=== PATIENT | male | born 1945 | race Caucasian/White ===

== ENCOUNTER 2016-04-02 23:55 | Emergency (ER) | payer OTHER, MEDICARE ==
[~2016-04-02 23:55] MED LIST: AMLO2.5T PO; ASPI1TAB PO; ATOR40TA PO; DEPA500T2 PO; DIVA500T9 PO; DRIS50002 PO; GABA-279 PO; HYDR12CA PO; LAMO200T PO; LISI40TAB PO; MELO7.5T6 PO; METF-699 PO; METF500T PO; SERT-141 PO; VITATAB11 PO
[2016-04-03 01:42] LABS: BASO # 0.1 K/mm3 (0.0-0.2); EOS # 0.1 K/mm3 (0.0-0.50); EOS % 0.8 % (0.0-3.0); LARGE UNSTAINED CELL # 0.2 K/mm3 (0.0-0.4); LARGE UNSTAINED CELL % 3.2 % (0.0-4.0); LYMPH # 3.3 K/mm3 (1.5-4.5); LYMPH % 47.5 % (24.0-44.0); MEAN CORPUSCULAR HGB CONC 33.6 g/dl (32.0-36.5); MEAN CORPUSCULAR VOLUME 92.2 fl (80.0-96.0); MONO # 0.4 K/mm3 (0.0-0.8); MONO % 6.5 % (0.0-5.0); NEUTROPHILS # 2.6 K/mm3 (1.8-7.7); PLATELET COUNT, AUTOMATED 254 k/mm3 (150-450); RED CELL DISTRIBUTION WIDTH 12.7 % (11.5-14.5); WHITE BLOOD COUNT 6.6 K/mm3 (4.0-10.0)
[2016-04-03 01:52] LABS: ANION GAP 10 MEQ/L (8-16); BLOOD UREA NITROGEN 21 MG/DL (7-18); CALCIUM LEVEL 9.2 MG/DL (8.8-10.2); CARBON DIOXIDE LEVEL 28 MEQ/L (21-32); CHLORIDE LEVEL 101 MEQ/L (98-107); CREATININE FOR GFR 1.21 MG/DL (0.70-1.30); GLOMERULAR FILTRATION RATE > 60.0 (>49); GLUCOSE, FASTING 208 MG/DL (80-110); POTASSIUM SERUM 4.2 MEQ/L (3.5-5.1); SODIUM LEVEL 139 MEQ/L (136-145)
[2016-04-03] MEDS ORDERED: ISOVUE-370 76% 100ML VIAL (Q9967) As Ordered ONE (03:11)
--- NOTE | 2016-04-03 04:20 | REPUSA ---
CLINICAL HISTORY: Dyspnea, exclude PE. TECHNIQUE: Multiple incremental axial, coronal and oblique images are obtained from the thoracic inle t to the upper abdomen. Intravenous contrast material was administered as per pulmonary embolism prot ocol. COMMENTS: There is excellent opacification of pulmonary arterial system without evidence for pulmonary embolism . Aorta is of normal caliber without evidence for dissection or aneurysm. There is no evidence of pleural or parenchymal mass. There are no pleural effusions. There is no evid ence of hilar or mediastinal lymphadenopathy. The heart and great vessels are within normal limits. Images of the upper abdomen demonstrate no evidence of adrenal mass. Multifocal air trapping in the l ungs. Bilateral basilar atelectatic pulmonary changes. The bony structures are free of lytic or blastic lesions. Multilevel degenerative changes are seen in volving the visualized thoracolumbar spine. Scattered calcifications are seen involving the aorta and major branches compatible with atherosclero sis. Cholelithiasis. 7 mm nonobstructing calculus in the left renal pelvis. IMPRESSION: No evidence for pulmonary embolism. Multifocal air trapping in the lungs. Mild bilateral ground glass densities. Pulmonary congestion versus mild infection. Basilar atelectatic pulmonary changes. Thank you for your kind referral of this patient.
--- NOTE | 2016-04-03 05:28 | EDDOCDS ---
Physician Documentation [facility] Name: Armando Valle Age: 71 yrs Sex: Male : 1945 Arrival Date: 04/02/2016 Time: 23:55 Bed 8 Private MD: [facility] Disposition: 04/03/16 05:08 Discharged to Home/Self Care. Impression: Other chest pain. - Condition is Stable. - Discharge Instructions: Nonspecific Chest Pain, Gastroesophageal Reflux Disease, Adult, Chest Pain Observation. - Medication Reconciliation, Local Pharmacy Hours form. - Follow up: [facility]; When: 4 - 5 days; Reason: Continuance of care. - Problem is an acute exacerbation. - Symptoms have improved. Historical: - Allergies: No known drug Allergies; - Home Meds: 1. amlodipine 2.5 mg Oral tab 1 tab once daily (Last dose: 04/02/2016) 2. aspirin 81 mg Oral tab 1 tab once daily (Last dose: 04/02/2016) 3. atorvastatin 40 mg oral tab 1 tab once daily (Last dose: 04/02/2016) 4. divalproex 500 mg oral TbEC 1 tab 2 times per day (Last dose: 04/02/2016) 5. calcium daily (Last dose: 04/02/2016) 6. depakote 200 mg twice a day 7. gabapentin 100 mg Oral cap 1 caps 3 times per day (Last dose: 04/02/2016) 8. lamotrigine 150 mg Oral tab 1 tab nightly (Last dose: 04/02/2016) 9. hydrochlorothiazide 12.5 mg Oral cap 1 cap once daily (Last dose: 04/02/2016) 10. lisinopril 40 mg Oral tab 1 tab once daily (Last dose: 04/02/2016) 11. meloxicam 7.5 mg oral tab 1 tab twice a day (Last dose: 04/02/2016) 12. metformin 750 mg Oral Tb24 1 tab twice a day (Last dose: 04/02/2016) 13. Sertraline 50 mg 50 mg daily (Last dose: 04/02/2016) 14. Vitamin D2 50,000 unit oral cap 1 cap once wkly - PMHx: Diabetes - NIDDM: controlled; Hypercholesterolemia; Hypertension; Seizure Disorder; - PSHx: vagus nerve stimulator; - Social history: Smoking status: Patient states former smoker of tobacco. No barriers to communication noted, The patient speaks fluent Maori, Speaks appropriately for age. - Family history: Not pertinent. - : The pt / caregiver states he / she is not on anticoagulants. Home medication list is obtained from the patient. - Exposure Risk Screening:: None identified. Vital Signs: 04/03 00:04 BP 201 / 81 (auto/); ko2 00:04 Pulse 70 MON; Pulse Ox 97% ; ko2 00:07 BP 201 / 81; Pulse 71; Resp 20; Temp 97.9(TE); Pulse Ox 96% on R/A; Weight 86.64 kg / jmv 191.01 lbs (R); Height 5 ft. 10 in. (177.80 cm) (R); Pain 3; 00:16 Pulse 68 MON; Pulse Ox 97% ; ko2 00:16 BP 182 / 86 (auto/); ko2 00:19 BP 176 / 86 RA (man/); jmv 00:19 BP 166 / 76 (auto/); ko2 00:19 Pulse 68 MON; Pulse Ox 97% ; ko2 00:33 Pulse 66 MON; Pulse Ox 96% ; ko2 00:34 BP 161 / 77 (auto/); ko2 00:49 BP 156 / 75 (auto/); ko2 00:49 Pulse 66 MON; Pulse Ox 95% ; ko2 01:04 BP 140 / 67 (auto/); ko2 01:04 Pulse 64 MON; Pulse Ox 95% ; ko2 01:19 BP 156 / 73 (auto/); ko2 01:19 Pulse 66 MON; Pulse Ox 95% ; ko2 01:34 BP 154 / 72 (auto/); ko2 01:34 Pulse 64 MON; Pulse Ox 96% ; ko2 01:49 BP 143 / 61 (auto/); ko2 01:49 Pulse 60 MON; Pulse Ox 96% ; ko2 02:03 Pulse 60 MON; Pulse Ox 96% ; ko2 02:04 BP 133 / 64 (auto/); ko2 02:18 Pulse 58 MON; Pulse Ox 95% ; ko2 02:19 BP 132 / 67 (auto/); ko2 02:34 BP 146 / 102 (auto/); ko2 02:34 Pulse 58 MON; Pulse Ox 96% ; ko2 02:49 BP 132 / 63 (auto/); ko2 02:49 Pulse 58 MON; Pulse Ox 96% ; ko2 03:04 BP 133 / 68 (auto/); ko2 03:04 Pulse 56 MON; Pulse Ox 96% ; ko2 03:18 Pulse 58 MON; ko2 03:19 BP 141 / 65 (auto/); ko2 03:33 Pulse 60 MON; Pulse Ox 98% ; ko2 03:34 BP 148 / 66 (auto/); ko2 03:49 BP 144 / 69 (auto/); ko2 03:49 Pulse 60 MON; Pulse Ox 98% ; ko2 04:04 BP 143 / 68 (auto/); ko2 04:04 Pulse 60 MON; Pulse Ox 98% ; ko2 05:13 BP 140 / 77; Pulse 66; Resp 18; Temp 96.3(O); Pulse Ox 97% ; Pain 0/10; ko2 00:07 Body Mass Index 27.41 (86.64 kg, 177.80 cm) jmv 00:07 RN notified about BP jmv MDM: 01:31 Softball Core Molder/Pulse Ox/q 30 min VS ordered. mm11 01:31 IV Saline Lock ordered. mm11 01:31 Rhythm Strip to chart ordered. mm11 01:31 Undress patient appropriately for examination ordered. mm11 01:33 B-Type Natiuretic Peptide Ordered. EDMS 01:33 Basic Metabolic Profile Ordered. EDMS 01:33 CBC with Diff Ordered. EDMS 01:33 Cardiac Injury Profile Ordered. EDMS 01:33 Troponin Ordered. EDMS 01:33 DEPAKOTE Ordered. EDMS 01:33 Chest, 2 View (pa\E\lat) Ordered. EDMS 01:33 ECG WITH READING ER PHYS+CARDIAG ordered. EDMS 01:55 Basic Metabolic Profile Reviewed. mm11 01:55 CBC with Diff Reviewed. mm11 01:55 Cardiac Injury Profile Reviewed. mm11 01:55 DEPAKOTE Reviewed. mm11 01:55 Troponin Reviewed. mm11 01:57 B-Type Natiuretic Peptide Reviewed. mm11 02:38 CT Chest Angio R/O PE Ordered. EDMS 03:38 Financial registration complete. hs2 05:08 CT Chest Angio R/O PE Reviewed. mm11 Signatures: Dispatcher [employer] EDMS Morgan Bruno, DO DO mm11 Annette Nolan,RN RN ko2 Dina Collado, Reg Reg hs2 MTDD
--- NOTE | 2016-04-03 05:28 | EDDOCDS ---
Nurse's Notes [facility] Name: Armando Valle Age: 71 yrs Sex: Male : 1945 Arrival Date: 04/02/2016 Time: 23:55 Bed 8 Private MD: MO Melissa Melbourne Diagnosis: Other chest pain Presentation: 04/02 23:56 Presenting complaint: EMS states: general illness over the last couple days, a little ko2 shortness of breath. Feels worse today. BP elevated at 186/110. Blood sugar 257. Suicide/Homicide risk assessment- the patient denies having any suicidal and/or homicidal ideations and does not present with any other emotional, behavioral or mental health complaints. Status: Patient is not a customer services manager or dependent. Transition of care: patient was not received from another setting of care. Care prior to arrival: See EMS report. Glucose check. 257. 23:56 Acuity: LUIGI Level 3 ko2 23:56 Method Of Arrival: Ambulance ko2 04/03 00:29 Adult Sepsis Screening: The patient does not have new or worsening altered mentation. ko2 Patient's respiratory rate is less than 22. Systolic blood pressure is greater than 100. Patient has a qSOFA score of 0- Negative Sepsis Screen. Triage Assessment: 00:06 General: Appears ill, Behavior is cooperative, drowsy. Pain: Location: chest Quality of ko2 pain is described as pressure. The patient is triaged at the bedside. See Assessment in Nurses Notes section of ED record. Neurological: Level of Consciousness is awake, alert, lethargic. Respiratory: Airway is patent Respiratory effort is even, labored, Breath sounds are clear bilaterally. GI: Abdomen is non- distended Bowel sounds present X 4 quads. Derm: Skin is pink, warm & dry. Musculoskeletal: Range of motion intact in all extremities. Historical: - Allergies: No known drug Allergies; - Home Meds: 1. amlodipine 2.5 mg Oral tab 1 tab once daily (Last dose: 04/02/2016) 2. aspirin 81 mg Oral tab 1 tab once daily (Last dose: 04/02/2016) 3. atorvastatin 40 mg oral tab 1 tab once daily (Last dose: 04/02/2016) 4. divalproex 500 mg oral TbEC 1 tab 2 times per day (Last dose: 04/02/2016) 5. calcium daily (Last dose: 04/02/2016) 6. depakote 200 mg twice a day 7. gabapentin 100 mg Oral cap 1 caps 3 times per day (Last dose: 04/02/2016) 8. lamotrigine 150 mg Oral tab 1 tab nightly (Last dose: 04/02/2016) 9. hydrochlorothiazide 12.5 mg Oral cap 1 cap once daily (Last dose: 04/02/2016) 10. lisinopril 40 mg Oral tab 1 tab once daily (Last dose: 04/02/2016) 11. meloxicam 7.5 mg oral tab 1 tab twice a day (Last dose: 04/02/2016) 12. metformin 750 mg Oral Tb24 1 tab twice a day (Last dose: 04/02/2016) 13. Sertraline 50 mg 50 mg daily (Last dose: 04/02/2016) 14. Vitamin D2 50,000 unit oral cap 1 cap once wkly - PMHx: Diabetes - NIDDM: controlled; Hypercholesterolemia; Hypertension; Seizure Disorder; - PSHx: vagus nerve stimulator; - Social history: Smoking status: Patient states former smoker of tobacco. No barriers to communication noted, The patient speaks fluent Tristanian, Speaks appropriately for age. - Family history: Not pertinent. - : The pt / caregiver states he / she is not on anticoagulants. Home medication list is obtained from the patient. - Exposure Risk Screening:: None identified. Screenin:28 Screening information is obtained from the patient. Fall risk: No risks identified. ko2 Assistance ADL's: requires no assistance with activities of daily living. Abuse/DV Screen: The patient / caregiver reports he/she is: not in a situation that causes fear, pain or injury. Nutritional screening: No deficits noted. Advance Directives: Currently, there is no health care proxy. home support is adequate. Assessment: 00:06 General: See triage assessment. ko2 01:06 General: Appears in no apparent distress, Behavior is cooperative. Neurological: Level ko2 of Consciousness is awake, lethargic. Respiratory: Airway is patent Respiratory effort is even, unlabored. Derm: Skin is normal. 02:14 General: Appears in no apparent distress, Behavior is cooperative. Neurological: Level ko2 of Consciousness is awake. Respiratory: Airway is patent Respiratory effort is even, unlabored. Derm: Skin is normal. 03:37 General: Appears in no apparent distress, Behavior is appropriate for age, cooperative. ko2 Pain: Denies pain. Neurological: Level of Consciousness is awake, alert. Cardiovascular: Rhythm is regular. Respiratory: Airway is patent Respiratory effort is even, unlabored. Derm: Skin is normal. Vital Signs: 00:04 BP 201 / 81 (auto/); ko2 00:04 Pulse 70 MON; Pulse Ox 97% ; ko2 00:07 BP 201 / 81; Pulse 71; Resp 20; Temp 97.9(TE); Pulse Ox 96% on R/A; Weight 86.64 kg jmv (R); Height 5 ft. 10 in. (177.80 cm) (R); Pain 3; 00:16 Pulse 68 MON; Pulse Ox 97% ; ko2 00:16 BP 182 / 86 (auto/); ko2 00:19 BP 176 / 86 RA (man/); jmv 00:19 BP 166 / 76 (auto/); ko2 00:19 Pulse 68 MON; Pulse Ox 97% ; ko2 00:33 Pulse 66 MON; Pulse Ox 96% ; ko2 00:34 BP 161 / 77 (auto/); ko2 00:49 BP 156 / 75 (auto/); ko2 00:49 Pulse 66 MON; Pulse Ox 95% ; ko2 01:04 BP 140 / 67 (auto/); ko2 01:04 Pulse 64 MON; Pulse Ox 95% ; ko2 01:19 BP 156 / 73 (auto/); ko2 01:19 Pulse 66 MON; Pulse Ox 95% ; ko2 01:34 BP 154 / 72 (auto/); ko2 01:34 Pulse 64 MON; Pulse Ox 96% ; ko2 01:49 BP 143 / 61 (auto/); ko2 01:49 Pulse 60 MON; Pulse Ox 96% ; ko2 02:03 Pulse 60 MON; Pulse Ox 96% ; ko2 02:04 BP 133 / 64 (auto/); ko2 02:18 Pulse 58 MON; Pulse Ox 95% ; ko2 02:19 BP 132 / 67 (auto/); ko2 02:34 BP 146 / 102 (auto/); ko2 02:34 Pulse 58 MON; Pulse Ox 96% ; ko2 02:49 BP 132 / 63 (auto/); ko2 02:49 Pulse 58 MON; Pulse Ox 96% ; ko2 03:04 BP 133 / 68 (auto/); ko2 03:04 Pulse 56 MON; Pulse Ox 96% ; ko2 03:18 Pulse 58 MON; ko2 03:19 BP 141 / 65 (auto/); ko2 03:33 Pulse 60 MON; Pulse Ox 98% ; ko2 03:34 BP 148 / 66 (auto/); ko2 03:49 BP 144 / 69 (auto/); ko2 03:49 Pulse 60 MON; Pulse Ox 98% ; ko2 04:04 BP 143 / 68 (auto/); ko2 04:04 Pulse 60 MON; Pulse Ox 98% ; ko2 05:13 BP 140 / 77; Pulse 66; Resp 18; Temp 96.3(O); Pulse Ox 97% ; Pain 0/10; ko2 00:07 Body Mass Index 27.41 (86.64 kg, 177.80 cm) jmv 00:07 RN notified about BP jmv Vitals: 00:28 Log In Time N/A - ambulance arrival. ko2 ED Course: 04/02 23:56 Patient visited by Azalia James, Senior Software Systems Engineer. ml3 23:56 [facility] is Private Physician. ml3 23:56 Annette Nolan,RN is Primary Nurse. ml3 23:56 Patient moved to Waiting 3 23:56 Patient moved to 8 ml3 23:59 Triage Initiated ko2 04/03 00:08 Pt greeted and oriented to ED. Patient advised of names of staff involved in care, [facility] location of call [place], wait times and NPO status. Patient has correct armband on for positive identification. Placed in gown. Bed in low position. Call light in reach. Side rails up X2. general office associate on. Pulse ox on. NIBP on. 00:09 Patient visited by Lenard Buchanan PCA. jmv 00:19 Patient visited by Lenard Buchanan PCA. jmv 00:28 Maintain field IV. Dressing intact. Good blood return noted. Site clean & dry. Gauge & ko2 site: 20 gauge Left AC. 01:07 Patient visited by Annette Nolan,KARY. ko2 01:19 Morgan Bruno DO is Attending Physician. mm11 01:19 Patient visited by Morgan Bruno DO. mm11 01:31 Patient visited by Morgan Bruno DO. mm11 01:38 B-Type Natiuretic Peptide Sent. ko2 01:38 Basic Metabolic Profile Sent. ko2 01:38 CBC with Diff Sent. ko2 01:38 Cardiac Injury Profile Sent. ko2 01:38 Troponin Sent. ko2 01:40 Patient visited by Annette Nolan RN. ko2 01:57 EKG done. (by ED staff). Reviewed by Morgan Bruno DO. kb5 01:58 Patient visited by Josiah Carbajal PCA. kb5 02:15 The patient / caregiver is instructed regarding the plan of care and ED course. ko2 02:34 Patient visited by Morgan Bruno DO. mm11 03:21 Patient visited by Morgan Bruno DO. mm11 04:21 Patient visited by Annette Nolan RN. ko2 04:28 CT Chest Angio R/O PE Returned. EDMS 05:07 Patient visited by Annette Nolan RN. ko2 05:08 [facility] is Referral Physician. mm11 05:14 Discontinued lock intact, bleeding controlled, pressure dressing applied, No ko2 redness/swelling at site. 05:26 No procedures done that require assistance. ko2 Order Results: Lab Order: B-Type Natiuretic Peptide; SPEC'M 04/03/16 00:16 Test: BRAIN NATRIURETIC PEPTIDE; Value: 30.9; Range: <100; Units: PG/ML; Status: F Lab Order: Basic Metabolic Profile; SPEC'M 04/03/16 00:16 Test: GLUCOSE, FASTING; Value: 208; Range: 80-110; Abnormal: Above high normal; Units: MG/DL; Status: F Test: BLOOD UREA NITROGEN; Value: 21; Range: 7-18; Abnormal: Above high normal; Units: MG/DL; Status: F Test: CREATININE FOR GFR; Value: 1.21; Range: 0.70-1.30; Units: MG/DL; Status: F Test: GLOMERULAR FILTRATION RATE; Value: > 60.0; Range: >49; Status: F Test: SODIUM LEVEL; Value: 139; Range: 136-145; Units: MEQ/L; Status: F Test: POTASSIUM SERUM; Value: 4.2; Range: 3.5-5.1; Units: MEQ/L; Status: F Test: CHLORIDE LEVEL; Value: 101; Range: 98-107; Units: MEQ/L; Status: F Test: CARBON DIOXIDE LEVEL; Value: 28; Range: 21-32; Units: MEQ/L; Status: F Test: ANION GAP; Value: 10; Range: 8-16; Units: MEQ/L; Status: F Test: CALCIUM LEVEL; Value: 9.2; Range: 8.8-10.2; Units: MG/DL; Status: F Test Note: ; Units are mL/min/1.73 m2 Chronic Kidney Disease Staging per NKF: Stage I & II GFR >=60 Normal to Mildly Decreased Stage III GFR 30-59 Moderately Decreased Stage IV GFR 15-29 Severely Decreased Stage V GFR <15 Very Little GFR Left ESRD GFR <15 on FLEXIBLE SHAFT WINDER Lab Order: CBC with Diff; SPEC'M 04/03/16 00:16 Test: WHITE BLOOD COUNT; Value: 6.6; Range: 4.0-10.0; Units: K/mm3; Status: F Test: RED BLOOD COUNT; Value: 3.74; Range: 4.30-6.10; Abnormal: Below low normal; Units: M/mm3; Status: F Test: HEMOGLOBIN; Value: 11.6; Range: 14.0-18.0; Abnormal: Below low normal; Units: g/dl; Status: F Test: HEMATOCRIT; Value: 34.5; Range: 42.0-52.0; Abnormal: Below low normal; Units: %; Status: F Test: MEAN CORPUSCULAR VOLUME; Value: 92.2; Range: 80.0-96.0; Units: fl; Status: F Test: MEAN CORPUSCULAR HEMOGLOBIN; Value: 31.0; Range: 27.0-33.0; Units: pg; Status: F Test: MEAN CORPUSCULAR HGB CONC; Value: 33.6; Range: 32.0-36.5; Units: g/dl; Status: F Test: RED CELL DISTRIBUTION WIDTH; Value: 12.7; Range: 11.5-14.5; Units: %; Status: F Test: PLATELET COUNT, AUTOMATED; Value: 254; Range: 150-450; Units: k/mm3; Status: F Test: NEUTROPHILS %; Value: 40.0; Range: 36.0-66.0; Units: %; Status: F Test: LYMPH %; Value: 47.5; Range: 24.0-44.0; Abnormal: Above high normal; Units: %; Status: F Test: MONO %; Value: 6.5; Range: 0.0-5.0; Abnormal: Above high normal; Units: %; Status: F Test: EOS %; Value: 0.8; Range: 0.0-3.0; Units: %; Status: F Test: BASO %; Value: 2.0; Range: 0.0-1.0; Abnormal: Above high normal; Units: %; Status: F Test: LARGE UNSTAINED CELL %; Value: 3.2; Range: 0.0-4.0; Units: %; Status: F Test: NEUTROPHILS #; Value: 2.6; Range: 1.8-7.7; Units: K/mm3; Status: F Test: LYMPH #; Value: 3.3; Range: 1.5-4.5; Units: K/mm3; Status: F Test: MONO #; Value: 0.4; Range: 0.0-0.8; Units: K/mm3; Status: F Test: EOS #; Value: 0.1; Range: 0.0-0.50; Units: K/mm3; Status: F Test: BASO #; Value: 0.1; Range: 0.0-0.2; Units: K/mm3; Status: F Test: LARGE UNSTAINED CELL #; Value: 0.2; Range: 0.0-0.4; Units: K/mm3; Status: F Lab Order: Cardiac Injury Profile; SPEC'M 04/03/16 00:16 Test: CPK CREATINE PHOSPHOKINASE; Value: 183; Range: 39-308; Units: U/L; Status: F Test: CK-MB VALUE MASS; Value: 4.3; Range: 0.0-3.6; Abnormal: Above high normal; Units: NG/ML; Status: F Test: MB/CK RELATIVE INDEX; Value: 2.34; Range: < OR =4; Status: F Test Note: ; DIAGNOSIS CRITERIA MMB ng/ml Relative Index (RI) NON-AMI < or = 5 N/A LEWIS [place]ONE > 5 < or = 4 AMI > 5 > 4 Lab Order: Troponin; SPEC'M 04/03/16 00:16 Test: TROPONIN I; Value: < 0.02; Range: < 0.10; Units: NG/ML; Status: F Test Note: ; Troponin I Reference Interval for [employer] LOCI: 99th Percentile= 0.00-0.045 ng/ml Risk Stratification: <= 0.10 ng/ml Decreased Risk for Adverse Clinical Events. 0.10-1.50 ng/ml Increased Risk for Adverse Clinical Events. Evaluation of additional criterion and/or repeat testing in 2-6 hours is suggested to rule out myocardial damage. >= 1.50 ng/ml Indicative of Myocardial Injury. Lab Order: DEPAKOTE; SPEC'M 04/03/16 00:16 Test: VALPROIC ACID (DEPAKOTE); Value: 43.7; Range: 50.0-100.0; Abnormal: Below low normal; Units: UG/ML; Status: F Radiology Order: CT Chest Angio R/O PE Test: CT Chest Angio R/O PE REASON FOR EXAMINATION: Chest Pain; ; CLINICAL HISTORY: Dyspnea, exclude PE.; TECHNIQUE: Multiple incremental axial, coronal and oblique images are obtained from the thoracic inle; t to the upper abdomen. Intravenous contrast material was administered as per pulmonary embolism prot; ocol.; COMMENTS:; There is excellent opacification of pulmonary arterial system without evidence for pulmonary embolism; . Aorta is of normal caliber without evidence for dissection or aneurysm.; There is no evidence of pleural or parenchymal mass. There are no pleural effusions. There is no evid; ence of hilar or mediastinal lymphadenopathy. The heart and great vessels are within normal limits.; Images of the upper abdomen demonstrate no evidence of adrenal mass. Multifocal air trapping in the l; ungs. Bilateral basilar atelectatic pulmonary changes.; The bony structures are free of lytic or blastic lesions. Multilevel degenerative changes are seen in; volving the visualized thoracolumbar spine.; Scattered calcifications are seen involving the aorta and major branches compatible with atherosclero; sis.; Cholelithiasis.; 7 mm nonobstructing calculus in the left renal pelvis.; IMPRESSION:; No evidence for pulmonary embolism.; Multifocal air trapping in the lungs.; Mild bilateral ground glass densities. Pulmonary congestion versus mild infection.; Basilar atelectatic pulmonary changes.; Thank you for your kind referral of this patient.; ; Outcome: 05:08 Discharge ordered by Provider. mm11 05:26 Discharge Assessment: Patient awake, alert and oriented x 3. No cognitive and/or ko2 functional deficits noted. Patient verbalized understanding of disposition instructions. patient administered narcotics - no. The following High Risk Discharge criteria are identified: None. Discharged to home ambulatory, with family. Condition: stable. Discharge instructions given to patient, Instructed on discharge instructions, follow up and referral plans. Demonstrated understanding of instructions, Pt was receptive of discharge instructions/ teaching. CT Study completed. Property sent home with patient. 05:27 Patient left the ED. ko2 Signatures: Dispatcher [employer] EDMS Azalia James, Senior Software Systems Engineer Unit ml3 Josiah Carbajal, WOOD TYPE FINISHER WOOD TYPE FINISHER kb5 Morgan Bruno, DO DO mm11 Annette Nolan,KARY RN ko2 Lenard Buchanan, WOOD TYPE FINISHER WOOD TYPE FINISHER jmv MTDD
--- NOTE | 2016-04-03 09:22 | ECGEPIP ---
Stationary ECG Study [facility] - ED Test Date: 2016-04-03 Pat Name: RINA HELM Department: Room: - Gender: M Radiology Services Manager: ALEISHA : 1945 Requested By: LUCY De La Cruz Order Number: [id number] Reading MD: Zeyad Ahumada Measurements Intervals [place] Rate: 60 P: 17 NE: 188 QRS: -7 QRSD: 101 T: 118 QT: 413 QTc: 416 Interpretive Statements SINUS RHYTHM LEFT VENTRICULAR HYPERTROPHY AND ST-T CHANGE Electronically Signed On 04-03-2016 9:21:57 EST by Zeyad Ahumada
--- NOTE | 2016-04-03 09:29 | REP ---
Chest x-ray: Two views. History: Chest pain. Comparison study: December 30, 2015. Findings: EKG monitoring electrodes overlie the chest. There is a electronic stimulator device projecting over the left chest again noted. Heart is not enlarged. Pulmonary vasculature is not increased. There are degenerative changes in the thoracic spine. Impression: No acute disease. Signed by Titus Baxter MD 04/03/2016 10:23 A
--- NOTE | 2016-04-05 12:30 | EDDOCDS ---
Physician Documentation [facility] Name: Armando Valle Age: 71 yrs Sex: Male : 1945 Arrival Date: 04/02/2016 Time: 23:55 Bed 8 Private MD: [facility] Disposition: 04/03/16 05:08 Discharged to Home/Self Care. Impression: Other chest pain. - Condition is Stable. - Discharge Instructions: Nonspecific Chest Pain, Gastroesophageal Reflux Disease, Adult, Chest Pain Observation. - Medication Reconciliation, Local Pharmacy Hours form. - Follow up: [facility]; When: 4 - 5 days; Reason: Continuance of care. - Problem is an acute exacerbation. - Symptoms have improved. Historical: - Allergies: No known drug Allergies; - Home Meds: 1. amlodipine 2.5 mg Oral tab 1 tab once daily (Last dose: 04/02/2016) 2. aspirin 81 mg Oral tab 1 tab once daily (Last dose: 04/02/2016) 3. atorvastatin 40 mg oral tab 1 tab once daily (Last dose: 04/02/2016) 4. divalproex 500 mg oral TbEC 1 tab 2 times per day (Last dose: 04/02/2016) 5. calcium daily (Last dose: 04/02/2016) 6. depakote 200 mg twice a day 7. gabapentin 100 mg Oral cap 1 caps 3 times per day (Last dose: 04/02/2016) 8. lamotrigine 150 mg Oral tab 1 tab nightly (Last dose: 04/02/2016) 9. hydrochlorothiazide 12.5 mg Oral cap 1 cap once daily (Last dose: 04/02/2016) 10. lisinopril 40 mg Oral tab 1 tab once daily (Last dose: 04/02/2016) 11. meloxicam 7.5 mg oral tab 1 tab twice a day (Last dose: 04/02/2016) 12. metformin 750 mg Oral Tb24 1 tab twice a day (Last dose: 04/02/2016) 13. Sertraline 50 mg 50 mg daily (Last dose: 04/02/2016) 14. Vitamin D2 50,000 unit oral cap 1 cap once wkly - PMHx: Diabetes - NIDDM: controlled; Hypercholesterolemia; Hypertension; Seizure Disorder; - PSHx: vagus nerve stimulator; - Social history: Smoking status: Patient states former smoker of tobacco. No barriers to communication noted, The patient speaks fluent Croatian, Speaks appropriately for age. - Family history: Not pertinent. - : The pt / caregiver states he / she is not on anticoagulants. Home medication list is obtained from the patient. - Exposure Risk Screening:: None identified. Vital Signs: 04/03 00:04 BP 201 / 81 (auto/); ko2 00:04 Pulse 70 MON; Pulse Ox 97% ; ko2 00:07 BP 201 / 81; Pulse 71; Resp 20; Temp 97.9(TE); Pulse Ox 96% on R/A; Weight 86.64 kg / jmv 191.01 lbs (R); Height 5 ft. 10 in. (177.80 cm) (R); Pain 3; 00:16 Pulse 68 MON; Pulse Ox 97% ; ko2 00:16 BP 182 / 86 (auto/); ko2 00:19 BP 176 / 86 RA (man/); jmv 00:19 BP 166 / 76 (auto/); ko2 00:19 Pulse 68 MON; Pulse Ox 97% ; ko2 00:33 Pulse 66 MON; Pulse Ox 96% ; ko2 00:34 BP 161 / 77 (auto/); ko2 00:49 BP 156 / 75 (auto/); ko2 00:49 Pulse 66 MON; Pulse Ox 95% ; ko2 01:04 BP 140 / 67 (auto/); ko2 01:04 Pulse 64 MON; Pulse Ox 95% ; ko2 01:19 BP 156 / 73 (auto/); ko2 01:19 Pulse 66 MON; Pulse Ox 95% ; ko2 01:34 BP 154 / 72 (auto/); ko2 01:34 Pulse 64 MON; Pulse Ox 96% ; ko2 01:49 BP 143 / 61 (auto/); ko2 01:49 Pulse 60 MON; Pulse Ox 96% ; ko2 02:03 Pulse 60 MON; Pulse Ox 96% ; ko2 02:04 BP 133 / 64 (auto/); ko2 02:18 Pulse 58 MON; Pulse Ox 95% ; ko2 02:19 BP 132 / 67 (auto/); ko2 02:34 BP 146 / 102 (auto/); ko2 02:34 Pulse 58 MON; Pulse Ox 96% ; ko2 02:49 BP 132 / 63 (auto/); ko2 02:49 Pulse 58 MON; Pulse Ox 96% ; ko2 03:04 BP 133 / 68 (auto/); ko2 03:04 Pulse 56 MON; Pulse Ox 96% ; ko2 03:18 Pulse 58 MON; ko2 03:19 BP 141 / 65 (auto/); ko2 03:33 Pulse 60 MON; Pulse Ox 98% ; ko2 03:34 BP 148 / 66 (auto/); ko2 03:49 BP 144 / 69 (auto/); ko2 03:49 Pulse 60 MON; Pulse Ox 98% ; ko2 04:04 BP 143 / 68 (auto/); ko2 04:04 Pulse 60 MON; Pulse Ox 98% ; ko2 05:13 BP 140 / 77; Pulse 66; Resp 18; Temp 96.3(O); Pulse Ox 97% ; Pain 0/10; ko2 00:07 Body Mass Index 27.41 (86.64 kg, 177.80 cm) jmv 00:07 RN notified about BP jmv MDM: 01:31 Wool Shearer/Pulse Ox/q 30 min VS ordered. mm11 01:31 IV Saline Lock ordered. mm11 01:31 Rhythm Strip to chart ordered. mm11 01:31 Undress patient appropriately for examination ordered. mm11 01:33 B-Type Natiuretic Peptide Ordered. EDMS 01:33 Basic Metabolic Profile Ordered. EDMS 01:33 CBC with Diff Ordered. EDMS 01:33 Cardiac Injury Profile Ordered. EDMS 01:33 Troponin Ordered. EDMS 01:33 DEPAKOTE Ordered. EDMS 01:33 Chest, 2 View (pa\E\lat) Ordered. EDMS 01:33 ECG WITH READING ER PHYS+CARDIAG ordered. EDMS 01:55 Basic Metabolic Profile Reviewed. mm11 01:55 CBC with Diff Reviewed. mm11 01:55 Cardiac Injury Profile Reviewed. mm11 01:55 DEPAKOTE Reviewed. mm11 01:55 Troponin Reviewed. mm11 01:57 B-Type Natiuretic Peptide Reviewed. mm11 02:38 CT Chest Angio R/O PE Ordered. EDMS 03:38 Financial registration complete. hs2 05:08 CT Chest Angio R/O PE Reviewed. mm11 05:29 [facility] [place] was scanned into [employer] and attached to record. gjb 07:45 T-Sheet-- Draft Copy was scanned into [employer] and attached to record. se 11:22 ECG/EKG was scanned into [employer] and attached to record. gb 11:22 Radiology Report was scanned into [employer] and attached to record. gb Signatures: Dispatcher [employer] EDMS Jesenia Esteves, Reg Reg gb Morgan Bruno, DO mm11 Annette Nolan RN RN jessica2 [place] b Dina Collado, Reg Reg hs2 Chelsy Vora The chart was reviewed and I authenticate all verbal orders and agree with the evaluation and treatment provided.Attachments: 05:29 [facility] Payment Agreement [facility] 07:45 T-Sheet-- Draft Copy [facility] 11:22 ECG/EKG Chart Complete MTDD
--- NOTE | 2016-04-05 12:30 | EDDOCDS ---
Nurse's Notes [facility] Name: Armando Helm Age: 71 yrs Sex: Male : 1945 Arrival Date: 04/02/2016 Time: 23:55 Bed 8 Private MD: [place] Melissa Delphi Diagnosis: Other chest pain Presentation: 04/02 23:56 Presenting complaint: EMS states: general illness over the last couple days, a little ko2 shortness of breath. Feels worse today. BP elevated at 186/110. Blood sugar 257. Suicide/Homicide risk assessment- the patient denies having any suicidal and/or homicidal ideations and does not present with any other emotional, behavioral or mental health complaints. Status: Patient is not a neuropsychology service director or dependent. Transition of care: patient was not received from another setting of care. Care prior to arrival: See EMS report. Glucose check. 257. 23:56 Acuity: LUIGI Level 3 ko2 23:56 Method Of Arrival: Ambulance ko2 04/03 00:29 Adult Sepsis Screening: The patient does not have new or worsening altered mentation. ko2 Patient's respiratory rate is less than 22. Systolic blood pressure is greater than 100. Patient has a qSOFA score of 0- Negative Sepsis Screen. Triage Assessment: 00:06 General: Appears ill, Behavior is cooperative, drowsy. Pain: Location: chest Quality of ko2 pain is described as pressure. The patient is triaged at the bedside. See Assessment in Nurses Notes section of ED record. Neurological: Level of Consciousness is awake, alert, lethargic. Respiratory: Airway is patent Respiratory effort is even, labored, Breath sounds are clear bilaterally. GI: Abdomen is non- distended Bowel sounds present X 4 quads. Derm: Skin is pink, warm & dry. Musculoskeletal: Range of motion intact in all extremities. Historical: - Allergies: No known drug Allergies; - Home Meds: 1. amlodipine 2.5 mg Oral tab 1 tab once daily (Last dose: 04/02/2016) 2. aspirin 81 mg Oral tab 1 tab once daily (Last dose: 04/02/2016) 3. atorvastatin 40 mg oral tab 1 tab once daily (Last dose: 04/02/2016) 4. divalproex 500 mg oral TbEC 1 tab 2 times per day (Last dose: 04/02/2016) 5. calcium daily (Last dose: 04/02/2016) 6. depakote 200 mg twice a day 7. gabapentin 100 mg Oral cap 1 caps 3 times per day (Last dose: 04/02/2016) 8. lamotrigine 150 mg Oral tab 1 tab nightly (Last dose: 04/02/2016) 9. hydrochlorothiazide 12.5 mg Oral cap 1 cap once daily (Last dose: 04/02/2016) 10. lisinopril 40 mg Oral tab 1 tab once daily (Last dose: 04/02/2016) 11. meloxicam 7.5 mg oral tab 1 tab twice a day (Last dose: 04/02/2016) 12. metformin 750 mg Oral Tb24 1 tab twice a day (Last dose: 04/02/2016) 13. Sertraline 50 mg 50 mg daily (Last dose: 04/02/2016) 14. Vitamin D2 50,000 unit oral cap 1 cap once wkly - PMHx: Diabetes - NIDDM: controlled; Hypercholesterolemia; Hypertension; Seizure Disorder; - PSHx: vagus nerve stimulator; - Social history: Smoking status: Patient states former smoker of tobacco. No barriers to communication noted, The patient speaks fluent Bruneian, Speaks appropriately for age. - Family history: Not pertinent. - : The pt / caregiver states he / she is not on anticoagulants. Home medication list is obtained from the patient. - Exposure Risk Screening:: None identified. Screenin:28 Screening information is obtained from the patient. Fall risk: No risks identified. ko2 Assistance ADL's: requires no assistance with activities of daily living. Abuse/DV Screen: The patient / caregiver reports he/she is: not in a situation that causes fear, pain or injury. Nutritional screening: No deficits noted. Advance Directives: Currently, there is no health care proxy. home support is adequate. Assessment: 00:06 General: See triage assessment. ko2 01:06 General: Appears in no apparent distress, Behavior is cooperative. Neurological: Level ko2 of Consciousness is awake, lethargic. Respiratory: Airway is patent Respiratory effort is even, unlabored. Derm: Skin is normal. 02:14 General: Appears in no apparent distress, Behavior is cooperative. Neurological: Level ko2 of Consciousness is awake. Respiratory: Airway is patent Respiratory effort is even, unlabored. Derm: Skin is normal. 03:37 General: Appears in no apparent distress, Behavior is appropriate for age, cooperative. ko2 Pain: Denies pain. Neurological: Level of Consciousness is awake, alert. Cardiovascular: Rhythm is regular. Respiratory: Airway is patent Respiratory effort is even, unlabored. Derm: Skin is normal. Vital Signs: 00:04 BP 201 / 81 (auto/); ko2 00:04 Pulse 70 MON; Pulse Ox 97% ; ko2 00:07 BP 201 / 81; Pulse 71; Resp 20; Temp 97.9(TE); Pulse Ox 96% on R/A; Weight 86.64 kg jmv (R); Height 5 ft. 10 in. (177.80 cm) (R); Pain 3; 00:16 Pulse 68 MON; Pulse Ox 97% ; ko2 00:16 BP 182 / 86 (auto/); ko2 00:19 BP 176 / 86 RA (man/); jmv 00:19 BP 166 / 76 (auto/); ko2 00:19 Pulse 68 MON; Pulse Ox 97% ; ko2 00:33 Pulse 66 MON; Pulse Ox 96% ; ko2 00:34 BP 161 / 77 (auto/); ko2 00:49 BP 156 / 75 (auto/); ko2 00:49 Pulse 66 MON; Pulse Ox 95% ; ko2 01:04 BP 140 / 67 (auto/); ko2 01:04 Pulse 64 MON; Pulse Ox 95% ; ko2 01:19 BP 156 / 73 (auto/); ko2 01:19 Pulse 66 MON; Pulse Ox 95% ; ko2 01:34 BP 154 / 72 (auto/); ko2 01:34 Pulse 64 MON; Pulse Ox 96% ; ko2 01:49 BP 143 / 61 (auto/); ko2 01:49 Pulse 60 MON; Pulse Ox 96% ; ko2 02:03 Pulse 60 MON; Pulse Ox 96% ; ko2 02:04 BP 133 / 64 (auto/); ko2 02:18 Pulse 58 MON; Pulse Ox 95% ; ko2 02:19 BP 132 / 67 (auto/); ko2 02:34 BP 146 / 102 (auto/); ko2 02:34 Pulse 58 MON; Pulse Ox 96% ; ko2 02:49 BP 132 / 63 (auto/); ko2 02:49 Pulse 58 MON; Pulse Ox 96% ; ko2 03:04 BP 133 / 68 (auto/); ko2 03:04 Pulse 56 MON; Pulse Ox 96% ; ko2 03:18 Pulse 58 MON; ko2 03:19 BP 141 / 65 (auto/); ko2 03:33 Pulse 60 MON; Pulse Ox 98% ; ko2 03:34 BP 148 / 66 (auto/); ko2 03:49 BP 144 / 69 (auto/); ko2 03:49 Pulse 60 MON; Pulse Ox 98% ; ko2 04:04 BP 143 / 68 (auto/); ko2 04:04 Pulse 60 MON; Pulse Ox 98% ; ko2 05:13 BP 140 / 77; Pulse 66; Resp 18; Temp 96.3(O); Pulse Ox 97% ; Pain 0/10; ko2 00:07 Body Mass Index 27.41 (86.64 kg, 177.80 cm) jmv 00:07 RN notified about BP jmv Vitals: 00:28 Log In Time N/A - ambulance arrival. ko2 ED Course: 04/02 23:56 Patient visited by Azalia James, Staffing Branch Manager. ml3 23:[address] [facility] is Private Physician. ml3 23:56 Annette Nolan,RN is Primary Nurse. ml3 23:56 Patient moved to Waiting 3 23:56 Patient moved to 8 ml3 23:59 Triage Initiated ko2 04/03 00:08 Pt greeted and oriented to ED. Patient advised of names of staff involved in care, [facility] location of call [place], wait times and NPO status. Patient has correct armband on for positive identification. Placed in gown. Bed in low position. Call light in reach. Side rails up X2. security monitor on. Pulse ox on. NIBP on. 00:09 Patient visited by Lenard Buchanan PCA. jmv 00:19 Patient visited by Lenard Buchanan PCA. jmv 00:28 Maintain field IV. Dressing intact. Good blood return noted. Site clean & dry. Gauge & ko2 site: 20 gauge Left AC. 01:07 Patient visited by Annette Nolan,KARY. ko2 01:19 Lucy Bruno DO is Attending Physician. mm11 01:19 Patient visited by Lucy Bruno DO. mm11 01:31 Patient visited by Lucy Bruno DO. mm11 01:38 B-Type Natiuretic Peptide Sent. ko2 01:38 Basic Metabolic Profile Sent. ko2 01:38 CBC with Diff Sent. ko2 01:38 Cardiac Injury Profile Sent. ko2 01:38 Troponin Sent. ko2 01:40 Patient visited by Annette Nolan RN. ko2 01:57 EKG done. (by ED staff). Reviewed by Lucy Bruno DO. kb5 01:58 Patient visited by Josiah Carbajal PCA. kb5 02:15 The patient / caregiver is instructed regarding the plan of care and ED course. ko2 02:34 Patient visited by Lucy Bruno DO. mm11 03:21 Patient visited by Lucy Bruno DO. mm11 04:21 Patient visited by Annette Nolan RN. ko2 04:28 CT Chest Angio R/O PE Returned. EDMS 05:07 Patient visited by Annette Nolan RN. ko2 05:[address] [facility] is Referral Physician. mm11 05:14 Discontinued lock intact, bleeding controlled, pressure dressing applied, No ko2 redness/swelling at site. 05:26 No procedures done that require assistance. ko2 05:29 [facility] [place] was scanned into [employer] (1BOG) and attached to record. gjb 07:45 T-Sheet-- Draft Copy was scanned into [employer] ([employer]) and attached to record. seh 09:43 EKG-ADULT Returned. EDMS 09:44 Chest, 2 View (pa\E\lat) Returned. EDMS 11:22 ECG/EKG was scanned into [employer] (1BO[employer]) and attached to record. gb 11:22 Radiology Report was scanned into [employer] (1BO[employer]) and attached to record. gb Order Results: Lab Order: B-Type Natiuretic Peptide; SPEC'M 04/03/16 00:16 Test: BRAIN NATRIURETIC PEPTIDE; Value: 30.9; Range: <100; Units: PG/ML; Status: F Lab Order: Basic Metabolic Profile; SPEC'M 04/03/16 00:16 Test: GLUCOSE, FASTING; Value: 208; Range: 80-110; Abnormal: Above high normal; Units: MG/DL; Status: F Test: BLOOD UREA NITROGEN; Value: 21; Range: 7-18; Abnormal: Above high normal; Units: MG/DL; Status: F Test: CREATININE FOR GFR; Value: 1.21; Range: 0.70-1.30; Units: MG/DL; Status: F Test: GLOMERULAR FILTRATION RATE; Value: > 60.0; Range: >49; Status: F Test: SODIUM LEVEL; Value: 139; Range: 136-145; Units: MEQ/L; Status: F Test: POTASSIUM SERUM; Value: 4.2; Range: 3.5-5.1; Units: MEQ/L; Status: F Test: CHLORIDE LEVEL; Value: 101; Range: 98-107; Units: MEQ/L; Status: F Test: CARBON DIOXIDE LEVEL; Value: 28; Range: 21-32; Units: MEQ/L; Status: F Test: ANION GAP; Value: 10; Range: 8-16; Units: MEQ/L; Status: F Test: CALCIUM LEVEL; Value: 9.2; Range: 8.8-10.2; Units: MG/DL; Status: F Test Note: ; Units are mL/min/1.73 m2 Chronic Kidney Disease Staging per NKF: Stage I & II GFR >=60 Normal to Mildly Decreased Stage III GFR 30-59 Moderately Decreased Stage IV GFR 15-29 Severely Decreased Stage V GFR <15 Very Little GFR Left ESRD GFR <15 on EARTH SCIENCE LABORATORY TECHNICIAN Lab Order: CBC with Diff; SPEC'M 04/03/16 00:16 Test: WHITE BLOOD COUNT; Value: 6.6; Range: 4.0-10.0; Units: K/mm3; Status: F Test: RED BLOOD COUNT; Value: 3.74; Range: 4.30-6.10; Abnormal: Below low normal; Units: M/mm3; Status: F Test: HEMOGLOBIN; Value: 11.6; Range: 14.0-18.0; Abnormal: Below low normal; Units: g/dl; Status: F Test: HEMATOCRIT; Value: 34.5; Range: 42.0-52.0; Abnormal: Below low normal; Units: %; Status: F Test: MEAN CORPUSCULAR VOLUME; Value: 92.2; Range: 80.0-96.0; Units: fl; Status: F Test: MEAN CORPUSCULAR HEMOGLOBIN; Value: 31.0; Range: 27.0-33.0; Units: pg; Status: F Test: MEAN CORPUSCULAR HGB CONC; Value: 33.6; Range: 32.0-36.5; Units: g/dl; Status: F Test: RED CELL DISTRIBUTION WIDTH; Value: 12.7; Range: 11.5-14.5; Units: %; Status: F Test: PLATELET COUNT, AUTOMATED; Value: 254; Range: 150-450; Units: k/mm3; Status: F Test: NEUTROPHILS %; Value: 40.0; Range: 36.0-66.0; Units: %; Status: F Test: LYMPH %; Value: 47.5; Range: 24.0-44.0; Abnormal: Above high normal; Units: %; Status: F Test: MONO %; Value: 6.5; Range: 0.0-5.0; Abnormal: Above high normal; Units: %; Status: F Test: EOS %; Value: 0.8; Range: 0.0-3.0; Units: %; Status: F Test: BASO %; Value: 2.0; Range: 0.0-1.0; Abnormal: Above high normal; Units: %; Status: F Test: LARGE UNSTAINED CELL %; Value: 3.2; Range: 0.0-4.0; Units: %; Status: F Test: NEUTROPHILS #; Value: 2.6; Range: 1.8-7.7; Units: K/mm3; Status: F Test: LYMPH #; Value: 3.3; Range: 1.5-4.5; Units: K/mm3; Status: F Test: MONO #; Value: 0.4; Range: 0.0-0.8; Units: K/mm3; Status: F Test: EOS #; Value: 0.1; Range: 0.0-0.50; Units: K/mm3; Status: F Test: BASO #; Value: 0.1; Range: 0.0-0.2; Units: K/mm3; Status: F Test: LARGE UNSTAINED CELL #; Value: 0.2; Range: 0.0-0.4; Units: K/mm3; Status: F Lab Order: Cardiac Injury Profile; SPEC'M 04/03/16 00:16 Test: CPK CREATINE PHOSPHOKINASE; Value: 183; Range: 39-308; Units: U/L; Status: F Test: CK-MB VALUE MASS; Value: 4.3; Range: 0.0-3.6; Abnormal: Above high normal; Units: NG/ML; Status: F Test: MB/CK RELATIVE INDEX; Value: 2.34; Range: < OR =4; Status: F Test Note: ; DIAGNOSIS CRITERIA MMB ng/ml Relative Index (RI) NON-AMI < or = 5 N/A [place] > 5 < or = 4 AMI > 5 > 4 Lab Order: Troponin; SPEC'M 04/03/16 00:16 Test: TROPONIN I; Value: < 0.02; Range: < 0.10; Units: NG/ML; Status: F Test Note: ; Troponin I Reference Interval for [employer] LOCI: 99th Percentile= 0.00-0.045 ng/ml Risk Stratification: <= 0.10 ng/ml Decreased Risk for Adverse Clinical Events. 0.10-1.50 ng/ml Increased Risk for Adverse Clinical Events. Evaluation of additional criterion and/or repeat testing in 2-6 hours is suggested to rule out myocardial damage. >= 1.50 ng/ml Indicative of Myocardial Injury. Lab Order: DEPAKOTE; SPEC'M 04/03/16 00:16 Test: VALPROIC ACID (DEPAKOTE); Value: 43.7; Range: 50.0-100.0; Abnormal: Below low normal; Units: UG/ML; Status: F Radiology Order: Chest, 2 View (pa\E\lat) Test: Chest, 2 View (pa\E\lat) REASON FOR EXAMINATION: Chest Pain; Chest x-ray: Two views.; ; History: Chest pain.; ; Comparison study: December 30, 2015.; ; Findings: EKG monitoring electrodes overlie the chest. There is a electronic; stimulator device projecting over the left chest again noted. Heart is not; enlarged. Pulmonary vasculature is not increased. There are degenerative; changes in the thoracic spine.; ; Impression:; ; No acute disease.; ; ; Signed by; Titus Baxter MD 04/03/2016 10:23 A; Radiology Order: EKG-ADULT Test: EKG-ADULT REASON FOR EXAMINATION: Chest Pain; Stationary ECG Study; [facility] - ED; ; Test Date: 2016-04-03; Pat Name: ARMANDO HELM Department:; Room: -; Gender: M Shrub Grower: ALEISHA; : 1945 Requested By: LUCY De La Cruz; Order Number: [id number] Reading MD: Zeyad Ahumada; Measurements; Intervals [place]; Rate: 60 P: 17; [place]: 188 QRS: -7; QRSD: 101 T: 118; QT: 413; QTc: 416; Interpretive Statements; SINUS RHYTHM; LEFT VENTRICULAR HYPERTROPHY AND ST-T CHANGE; ; Electronically Signed On 04-03-2016 9:21:57 EST by Zeyad Ahumada; Radiology Order: CT Chest Angio R/O PE Test: CT Chest Angio R/O PE REASON FOR EXAMINATION: Chest Pain; ; CLINICAL HISTORY: Dyspnea, exclude PE.; TECHNIQUE: Multiple incremental axial, coronal and oblique images are obtained from the thoracic inle; t to the upper abdomen. Intravenous contrast material was administered as per pulmonary embolism prot; ocol.; COMMENTS:; There is excellent opacification of pulmonary arterial system without evidence for pulmonary embolism; . Aorta is of normal caliber without evidence for dissection or aneurysm.; There is no evidence of pleural or parenchymal mass. There are no pleural effusions. There is no evid; ence of hilar or mediastinal lymphadenopathy. The heart and great vessels are within normal limits.; Images of the upper abdomen demonstrate no evidence of adrenal mass. Multifocal air trapping in the l; ungs. Bilateral basilar atelectatic pulmonary changes.; The bony structures are free of lytic or blastic lesions. Multilevel degenerative changes are seen in; volving the visualized thoracolumbar spine.; Scattered calcifications are seen involving the aorta and major branches compatible with atherosclero; sis.; Cholelithiasis.; 7 mm nonobstructing calculus in the left renal pelvis.; IMPRESSION:; No evidence for pulmonary embolism.; Multifocal air trapping in the lungs.; Mild bilateral ground glass densities. Pulmonary congestion versus mild infection.; Basilar atelectatic pulmonary changes.; Thank you for your kind referral of this patient.; ; Outcome: 05:08 Discharge ordered by Provider. mm11 05:26 Discharge Assessment: Patient awake, alert and oriented x 3. No cognitive and/or ko2 functional deficits noted. Patient verbalized understanding of disposition instructions. patient administered narcotics - no. The following High Risk Discharge criteria are identified: None. Discharged to home ambulatory, with family. Condition: stable. Discharge instructions given to patient, Instructed on discharge instructions, follow up and referral plans. Demonstrated understanding of instructions, Pt was receptive of discharge instructions/ teaching. CT Study completed. Property sent home with patient. 05:27 Patient left the ED. ko2 Signatures: Dispatcher [employer] EDMS Jesenia Esteves, Reg Reg gb Azalia James, Staffing Branch Manager Unit ml3 Josiah Carbajal, CRUSHER PLANT OPERATOR CRUSHER PLANT OPERATOR kb5 Lucy Bruno, DO mm11 Annette Nolan,KARY RN ko2 [place] Theodore Sarah seh Vega, Jose, CRUSHER PLANT OPERATOR CRUSHER PLANT OPERATOR jmv Chart Complete [facility]
--- NOTE | 2016-04-05 12:30 | EDDOCDS ---
Physician Documentation [facility] Name: Armando Valle Age: 71 yrs Sex: Male : 1945 Arrival Date: 04/02/2016 Time: 23:55 Bed 8 Private MD: [facility] Disposition: 04/03/16 05:08 Discharged to Home/Self Care. Impression: Other chest pain. - Condition is Stable. - Discharge Instructions: Nonspecific Chest Pain, Gastroesophageal Reflux Disease, Adult, Chest Pain Observation. - Medication Reconciliation, Local Pharmacy Hours form. - Follow up: [facility]; When: 4 - 5 days; Reason: Continuance of care. - Problem is an acute exacerbation. - Symptoms have improved. Historical: - Allergies: No known drug Allergies; - Home Meds: 1. amlodipine 2.5 mg Oral tab 1 tab once daily (Last dose: 04/02/2016) 2. aspirin 81 mg Oral tab 1 tab once daily (Last dose: 04/02/2016) 3. atorvastatin 40 mg oral tab 1 tab once daily (Last dose: 04/02/2016) 4. divalproex 500 mg oral TbEC 1 tab 2 times per day (Last dose: 04/02/2016) 5. calcium daily (Last dose: 04/02/2016) 6. depakote 200 mg twice a day 7. gabapentin 100 mg Oral cap 1 caps 3 times per day (Last dose: 04/02/2016) 8. lamotrigine 150 mg Oral tab 1 tab nightly (Last dose: 04/02/2016) 9. hydrochlorothiazide 12.5 mg Oral cap 1 cap once daily (Last dose: 04/02/2016) 10. lisinopril 40 mg Oral tab 1 tab once daily (Last dose: 04/02/2016) 11. meloxicam 7.5 mg oral tab 1 tab twice a day (Last dose: 04/02/2016) 12. metformin 750 mg Oral Tb24 1 tab twice a day (Last dose: 04/02/2016) 13. Sertraline 50 mg 50 mg daily (Last dose: 04/02/2016) 14. Vitamin D2 50,000 unit oral cap 1 cap once wkly - PMHx: Diabetes - NIDDM: controlled; Hypercholesterolemia; Hypertension; Seizure Disorder; - PSHx: vagus nerve stimulator; - Social history: Smoking status: Patient states former smoker of tobacco. No barriers to communication noted, The patient speaks fluent Occitan, Speaks appropriately for age. - Family history: Not pertinent. - : The pt / caregiver states he / she is not on anticoagulants. Home medication list is obtained from the patient. - Exposure Risk Screening:: None identified. Vital Signs: 04/03 00:04 BP 201 / 81 (auto/); ko2 00:04 Pulse 70 MON; Pulse Ox 97% ; ko2 00:07 BP 201 / 81; Pulse 71; Resp 20; Temp 97.9(TE); Pulse Ox 96% on R/A; Weight 86.64 kg / jmv 191.01 lbs (R); Height 5 ft. 10 in. (177.80 cm) (R); Pain 3; 00:16 Pulse 68 MON; Pulse Ox 97% ; ko2 00:16 BP 182 / 86 (auto/); ko2 00:19 BP 176 / 86 RA (man/); jmv 00:19 BP 166 / 76 (auto/); ko2 00:19 Pulse 68 MON; Pulse Ox 97% ; ko2 00:33 Pulse 66 MON; Pulse Ox 96% ; ko2 00:34 BP 161 / 77 (auto/); ko2 00:49 BP 156 / 75 (auto/); ko2 00:49 Pulse 66 MON; Pulse Ox 95% ; ko2 01:04 BP 140 / 67 (auto/); ko2 01:04 Pulse 64 MON; Pulse Ox 95% ; ko2 01:19 BP 156 / 73 (auto/); ko2 01:19 Pulse 66 MON; Pulse Ox 95% ; ko2 01:34 BP 154 / 72 (auto/); ko2 01:34 Pulse 64 MON; Pulse Ox 96% ; ko2 01:49 BP 143 / 61 (auto/); ko2 01:49 Pulse 60 MON; Pulse Ox 96% ; ko2 02:03 Pulse 60 MON; Pulse Ox 96% ; ko2 02:04 BP 133 / 64 (auto/); ko2 02:18 Pulse 58 MON; Pulse Ox 95% ; ko2 02:19 BP 132 / 67 (auto/); ko2 02:34 BP 146 / 102 (auto/); ko2 02:34 Pulse 58 MON; Pulse Ox 96% ; ko2 02:49 BP 132 / 63 (auto/); ko2 02:49 Pulse 58 MON; Pulse Ox 96% ; ko2 03:04 BP 133 / 68 (auto/); ko2 03:04 Pulse 56 MON; Pulse Ox 96% ; ko2 03:18 Pulse 58 MON; ko2 03:19 BP 141 / 65 (auto/); ko2 03:33 Pulse 60 MON; Pulse Ox 98% ; ko2 03:34 BP 148 / 66 (auto/); ko2 03:49 BP 144 / 69 (auto/); ko2 03:49 Pulse 60 MON; Pulse Ox 98% ; ko2 04:04 BP 143 / 68 (auto/); ko2 04:04 Pulse 60 MON; Pulse Ox 98% ; ko2 05:13 BP 140 / 77; Pulse 66; Resp 18; Temp 96.3(O); Pulse Ox 97% ; Pain 0/10; ko2 00:07 Body Mass Index 27.41 (86.64 kg, 177.80 cm) jmv 00:07 RN notified about BP jmv MDM: 01:31 Cafeteria Aide/Pulse Ox/q 30 min VS ordered. mm11 01:31 IV Saline Lock ordered. mm11 01:31 Rhythm Strip to chart ordered. mm11 01:31 Undress patient appropriately for examination ordered. mm11 01:33 B-Type Natiuretic Peptide Ordered. EDMS 01:33 Basic Metabolic Profile Ordered. EDMS 01:33 CBC with Diff Ordered. EDMS 01:33 Cardiac Injury Profile Ordered. EDMS 01:33 Troponin Ordered. EDMS 01:33 DEPAKOTE Ordered. EDMS 01:33 Chest, 2 View (pa\E\lat) Ordered. EDMS 01:33 ECG WITH READING ER PHYS+CARDIAG ordered. EDMS 01:55 Basic Metabolic Profile Reviewed. mm11 01:55 CBC with Diff Reviewed. mm11 01:55 Cardiac Injury Profile Reviewed. mm11 01:55 DEPAKOTE Reviewed. mm11 01:55 Troponin Reviewed. mm11 01:57 B-Type Natiuretic Peptide Reviewed. mm11 02:38 CT Chest Angio R/O PE Ordered. EDMS 03:38 Financial registration complete. hs2 05:08 CT Chest Angio R/O PE Reviewed. mm11 05:29 [facility] Payment Agreement was scanned into [employer] and attached to record. gjb 07:45 T-Sheet-- Draft Copy was scanned into [employer] and attached to record. se 11:22 ECG/EKG was scanned into [employer] and attached to record. gb 11:22 Radiology Report was scanned into [employer] and attached to record. gb Signatures: Dispatcher [employer] EDMS Jesenia Esteves, Reg Reg gb Morgan Bruno, DO mm11 Annette Nolan RN RN jessica2 Santa Theodore b Dina Collado, Reg Reg hs2 Chelsy Vora The chart was reviewed and I authenticate all verbal orders and agree with the evaluation and treatment provided.Attachments: 05:29 [facility] Payment Agreement [facility] 07:45 T-Sheet-- Draft Copy [facility] 11:22 ECG/EKG Chart Complete MTDD
== END 2016-04-03 05:27 | disposition home or self-care (01) ==
LOC: M ED 23:55
DX: R07.89 Other chest pain (principal); E11.9 Type 2 diabetes mellitus without complications; I10 Essential (primary) hypertension; E78.00 Pure hypercholesterolemia, unspecified; G40.909 Epilepsy, unspecified, not intractable, without status epilepticus; Z79.899 Other long term (current) drug therapy; Z79.82 Long term (current) use of aspirin; Z79.84 Long term (current) use of oral hypoglycemic drugs
CPT/HCPCS: 36415; 71020; 71275; 80048; 80164; 82550; 82553; 83880; 84484; 85025; 93005; 93041; 99285; Q9967

== ENCOUNTER 2016-04-16 13:24 | Emergency (ER) | payer OTHER, MEDICARE ==
[2016-04-16] MEDS ORDERED: CLINDAMYCIN 600 MG/50 ML PREMIX BAG As Ordered ONE (17:28)
[2016-04-16] MEDS ORDERED: methylPREDNISolone INJ 40 MG/1 ML VIAL (J2920) As Ordered ONE (17:28)
[2016-04-16 17:37] LABS: BASO % 0.2 % (0.0-1.0); EOS % 0.4 % (0.0-3.0); LARGE UNSTAINED CELL # 0.2 K/mm3 (0.0-0.4); LYMPH # 2.8 K/mm3 (1.5-4.5); LYMPH % 24.6 % (24.0-44.0); MEAN CORPUSCULAR HEMOGLOBIN 31.9 pg (27.0-33.0); MEAN CORPUSCULAR HGB CONC 35.1 g/dl (32.0-36.5); MEAN CORPUSCULAR VOLUME 90.9 fl (80.0-96.0); MONO # 0.9 K/mm3 (0.0-0.8); MONO % 7.7 % (0.0-5.0); NEUTROPHILS # 7.4 K/mm3 (1.8-7.7); NEUTROPHILS % 65.2 % (36.0-66.0); PLATELET COUNT, AUTOMATED 295 k/mm3 (150-450); WHITE BLOOD COUNT 11.3 K/mm3 (4.0-10.0)
[2016-04-16 17:55] LABS: ANION GAP 10 MEQ/L (8-16); BLOOD UREA NITROGEN 21 MG/DL (7-18); CALCIUM LEVEL 9.9 MG/DL (8.8-10.2); CARBON DIOXIDE LEVEL 27 MEQ/L (21-32); CHLORIDE LEVEL 100 MEQ/L (98-107); CREATININE FOR GFR 1.23 MG/DL (0.70-1.30); GLOMERULAR FILTRATION RATE > 60.0 (>49); GLUCOSE, FASTING 172 MG/DL (80-110); POTASSIUM SERUM 4.6 MEQ/L (3.5-5.1); SODIUM LEVEL 137 MEQ/L (136-145)
[2016-04-16 18:09] LABS: ERYTHROCYTE SEDIMENTATION RATE 52 mm/hr (0-20)
--- NOTE | 2016-04-16 18:30 | REPUSA ---
HISTORY: Swelling. TECHNIQUE: Multiple thin section helically-acquired axially-displayed and helically acquired coronall y displayed computed tomographic images of the face are obtained from the mandible through the fronta l sinuses, with images obtained at soft tissue and bone window. 2D reformatted images were performed. FINDINGS: Normal bony mineralization. No fractures. Normal orbits. Normal, clear paranasal sinuses. Normal oral and nasal cavities. Normal infratemporal fossa and deep parapharyngeal spaces with normal muscles of mastication. Normal parotid and submandibular glands. IMPRESSION: Normal examination of the face. Thank you for your kind referral of this patient
--- NOTE | 2016-04-16 18:46 | EDDOCDS ---
Physician Documentation [facility] Name: Armando Valle Age: 71 yrs Sex: Male : 1945 Arrival Date: 04/16/2016 Time: 13:24 Bed I3 / M3 Private MD: [place] Disposition: 04/16/16 18:33 Discharged to Home/Self Care. Impression: Cellulitis and abscess of mouth - right lower dental abscess. - Condition is Stable. - Discharge Instructions: Dental Abscess. - Prescriptions for Clindamycin HCl 300 mg Oral Capsule - take 1 capsule by ORAL route every 8 hours; 30 capsule. Ultram 50 mg Oral Tablet - take 1 tablet by ORAL route every 6 hours As needed MDD: 4 tabs; 12 tablet. - Medication Reconciliation, Local Pharmacy Hours form. - Follow up: Emergency Department; When: As needed; Reason: Worsening of conditions. Follow up: Private Physician; When: 2 - 3 days; Reason: Wound/Symptom Recheck, Recheck today's complaints, Continuance of care. - Problem is new. - Symptoms are unchanged. Historical: - Allergies: no known allergies; - Home Meds: 1. amlodipine 2.5 mg Oral tab 1 tab once daily 2. aspirin 81 mg Oral tab 1 tab once daily 3. atorvastatin 40 mg oral tab 1 tab once daily 4. calcium daily 5. depakote 200 mg twice a day 6. divalproex 500 mg oral TbEC 1 tab 2 times per day 7. gabapentin 100 mg Oral cap 1 caps 3 times per day 8. hydrochlorothiazide 12.5 mg Oral cap 1 cap once daily 9. lamotrigine 150 mg Oral tab 1 tab nightly 10. lisinopril 40 mg Oral tab 1 tab once daily 11. meloxicam 7.5 mg oral tab 1 tab twice a day 12. metformin 750 mg Oral Tb24 1 tab twice a day 13. Sertraline 50 mg 50 mg daily 14. Vitamin D2 50,000 unit oral cap 1 cap once wkly - PMHx: Diabetes - NIDDM: controlled; Hypercholesterolemia; Hypertension; Seizure Disorder; - PSHx: vagus nerve stimulator; - Social history: Smoking status: Patient states was never smoker of tobacco. No barriers to communication noted. - Family history: Not pertinent. - : The pt / caregiver states he / she is not on anticoagulants. Home medication list is obtained from the patient. - Exposure Risk Screening:: None identified. Vital Signs: 04/16 13:27 BP 169 / 73 LA Sitting (auto/reg); Pulse 90; Resp 18 S; Temp 96.3(O); Pulse Ox 100% on mt4 R/A; Weight 86.18 kg / 189.99 lbs (R); Height 5 ft. 10 in. (177.80 cm) (R); Pain 8/10; 15:37 BP 167 / 78; Pulse 87; Resp 18; Temp 98.9(TE); Pulse Ox 97% on R/A; Pain 9/10; sew 18:11 BP 154 / 77; Pulse 67; Resp 18; Temp 97.8; Pulse Ox 97% ; Pain 6/10; jam1 13:27 Body Mass Index 27.26 (86.18 kg, 177.80 cm) mt4 MDM: 16:58 [facility] Payment Agreement was scanned into [employer] and attached to record. [facility] 16:58 Financial registration complete. gjb 17:01 IV Saline Lock ordered. dt4 17:01 Clindamycin 600 mg IVPB once over 30 mins; dilute in 50mL of NS or D5W ordered. dt4 17:01 NS 0.9% 500 ml IV at bolus once ordered. dt4 17:02 Solu-MEDROL 40 mg IVP once ordered. dt4 17:02 CBC with Diff Ordered. EDMS 17:02 Basic Metabolic Profile Ordered. EDMS 17:02 Sed Rate Ordered. EDMS 17:02 CRP Ordered. EDMS 17:02 CT Maxilofacial W/out Contrast Ordered. EDMS Administered Medications: 17:34 Drug: Clindamycin 600 mg [clindamycin 600 mg/50 mL in 5 % dextrose intravenous srm piggyback] Route: IVPB; Infused Over: 30 mins; Site: left antecubital; 18:16 Follow up: IV Status: Completed infusion srm 18:44 Follow up: IV Status: Completed infusion; IV Intake: 50ml dsf 17:34 Drug: Solu-MEDROL 40 mg [Solu-Medrol 500 mg intravenous solution (40 mg)] Route: IVP; srm Site: left antecubital; 18:16 Drug: NS 0.9% 500 ml [sodium chloride 0.9 % intravenous solution] Route: IV; Rate: srm bolus; Site: left antecubital; 18:43 Follow up: IV Status: Completed infusion; IV Intake: 500ml dsf Signatures: Dispatcher [employer] EDJanel Dale RN RN srm Fuller, Desiree, RN RN dsf Hafner, Jane, RN RN [facility] Ting Mccullough PA-C PA-C dt4 Santa Theodore The chart was reviewed and I authenticate all verbal orders and agree with the evaluation and treatment provided.Attachments: 16:58 [facility] Payment Agreement florian MTDD
--- NOTE | 2016-04-16 18:48 | EDDOCDS ---
Nurse's Notes [facility] Name: Armando Valle Age: 71 yrs Sex: Male : 1945 Arrival Date: 04/16/2016 Time: 13:24 Bed I3 / M3 Private MD: [place] Melissa [place] Diagnosis: Cellulitis and abscess of mouth-right lower dental abscess Presentation: 04/16 13:54 Presenting complaint: Patient states: facial swelling I think I have an infected tooth, [facility] right lower. Adult Sepsis Screening: The patient does not have new or worsening altered mentation. Patient's respiratory rate is less than 22. Systolic blood pressure is greater than 100. Patient has a qSOFA score of 0- Negative Sepsis Screen. Suicide/Homicide risk assessment- the patient denies having any suicidal and/or homicidal ideations and does not present with any other emotional, behavioral or mental health complaints. Status: Patient is not a coin machine servicer repairer or dependent. Transition of care: patient was not received from another setting of care. 13:54 Acuity: LUIGI Level 3 [facility] 13:54 Method Of Arrival: Walkin/Carried/Asstd [facility] Triage Assessment: 13:57 General: Appears in no apparent distress, comfortable, Behavior is appropriate for age, [facility] cooperative. Pain: Location: mouth. EENT: Reports pain Pain is 9 out of 10 on a pain scale. Respiratory: Airway is patent Respiratory effort is even, unlabored, Respiratory pattern is regular, symmetrical. Derm: Skin is pink, warm & dry. Historical: - Allergies: no known allergies; - Home Meds: 1. amlodipine 2.5 mg Oral tab 1 tab once daily 2. aspirin 81 mg Oral tab 1 tab once daily 3. atorvastatin 40 mg oral tab 1 tab once daily 4. calcium daily 5. depakote 200 mg twice a day 6. divalproex 500 mg oral TbEC 1 tab 2 times per day 7. gabapentin 100 mg Oral cap 1 caps 3 times per day 8. hydrochlorothiazide 12.5 mg Oral cap 1 cap once daily 9. lamotrigine 150 mg Oral tab 1 tab nightly 10. lisinopril 40 mg Oral tab 1 tab once daily 11. meloxicam 7.5 mg oral tab 1 tab twice a day 12. metformin 750 mg Oral Tb24 1 tab twice a day 13. Sertraline 50 mg 50 mg daily 14. Vitamin D2 50,000 unit oral cap 1 cap once wkly - PMHx: Diabetes - NIDDM: controlled; Hypercholesterolemia; Hypertension; Seizure Disorder; - PSHx: vagus nerve stimulator; - Social history: Smoking status: Patient states was never smoker of tobacco. No barriers to communication noted. - Family history: Not pertinent. - : The pt / caregiver states he / she is not on anticoagulants. Home medication list is obtained from the patient. - Exposure Risk Screening:: None identified. Screenin:11 Screening information is obtained from the patient. Primary language is Maori. Fall jam1 risk: No risks identified. Assistance ADL's: requires no assistance with activities of daily living. Abuse/DV Screen: The patient / caregiver reports he/she is: not in a situation that causes fear, pain or injury. Nutritional screening: No deficits noted. Exposure Risk Screening: None identified. Advance Directives: Currently, there is a health care proxy, medina williamson sister of pt. There is no active DNR order. There is no living will. There is an active Power of Environmental Field Professional, sister of pt medina williamson. Advance directive information does not know if advance directives have been placed in a prior [facility] medical record. Further advance directive information is declined. home support is adequate. Assessment: 15:37 General: Appears in no apparent distress, comfortable, Behavior is appropriate for age, kr3 cooperative. Pain: Location: right jaw. Neurological: Reports dizziness that has been a problem for ' a while'. EENT: Reports dental pain right side of mouth. Respiratory: Respiratory effort is even, unlabored. Derm: Skin is normal, Swollen area noted on right jaw. 17:24 General: Appears in no apparent distress, Behavior is appropriate for age, cooperative. srm Neurological: No deficits noted. EENT: Reports swelling to right lower jaw for 1-2 days. GI: No deficits noted. 18:44 Adult Sepsis Screening: The patient does not have new or worsening altered mentation. dsf Patient's respiratory rate is less than 22. Systolic blood pressure is greater than 100. Patient has a qSOFA score of 0- Negative Sepsis Screen. General: Appears in no apparent distress, comfortable, Behavior is appropriate for age, cooperative. Pain: Denies pain. Neurological: Level of Consciousness is awake, alert. Cardiovascular: Capillary refill < 3 seconds. Respiratory: Airway is patent Respiratory effort is even, unlabored, Respiratory pattern is regular, symmetrical. Derm: Skin is pink, warm & dry. Swollen area noted on right jaw. Vital Signs: 13:27 BP 169 / 73 LA Sitting (auto/reg); Pulse 90; Resp 18 S; Temp 96.3(O); Pulse Ox 100% on mt4 R/A; Weight 86.18 kg (R); Height 5 ft. 10 in. (177.80 cm) (R); Pain 8/10; 15:37 BP 167 / 78; Pulse 87; Resp 18; Temp 98.9(TE); Pulse Ox 97% on R/A; Pain 9/10; sew 18:11 BP 154 / 77; Pulse 67; Resp 18; Temp 97.8; Pulse Ox 97% ; Pain 6/10; jam1 13:27 Body Mass Index 27.26 (86.18 kg, 177.80 cm) mt4 Vitals: 13:27 Log In Time: April 16, 2016 at 13:24. mt4 ED Course: 13:25 Patient visited by Adry Petty. mt4 13:25 Patient moved to Waiting mt4 13:27 [facility] is Private Physician. mt4 13:29 Patient moved to Pre RCE mt4 13:55 Triage Initiated cjh 15:34 Patient moved to Triage 2 sew 15:37 Patient visited by Rosi Garcia,KARY. kr3 15:38 Patient visited by Chelsy Judge. sew 15:39 The patient / caregiver is instructed regarding the plan of care and ED course. Patient kr3 has correct armband on for positive identification. 16:36 Ting Mccullough PA-C is PHCP. dt4 16:36 Julius Long MD is Attending Physician. dt4 16:42 Patient visited by Ting Mccullough PA-C. dt4 16:57 Patient moved to I3 / M3 sew 16:58 [facility] Payment Agreement was scanned into [employer] and attached to record. gjb 17:12 Patient visited by Meena Montes PCA. jam1 17:24 CRP Sent. srm 17:24 Basic Metabolic Profile Sent. srm 17:24 CBC with Diff Sent. srm 17:24 Inserted saline lock: 20 gauge in left antecubital area and blood collected. srm 17:25 Patient visited by Janel Rangel RN. srm 17:26 Sed Rate Sent. srm 17:37 Patient visited by Janel Rangel RN. srm 17:[address] dsf 17:45 Patient moved to I3 / M3 srm 18:34 CT Maxilofacial W/out Contrast Returned. EDMS 18:44 Discontinued lock intact, bleeding controlled, pressure dressing applied, No dsf redness/swelling at site. No procedures done that require assistance. Administered Medications: 17:34 Drug: Clindamycin 600 mg [clindamycin 600 mg/50 mL in 5 % dextrose intravenous srm piggyback] Route: IVPB; Infused Over: 30 mins; Site: left antecubital; 18:16 Follow up: IV Status: Completed infusion srm 18:44 Follow up: IV Status: Completed infusion; IV Intake: 50ml dsf 17:34 Drug: Solu-MEDROL 40 mg [Solu-Medrol 500 mg intravenous solution (40 mg)] Route: IVP; srm Site: left antecubital; 18:16 Drug: NS 0.9% 500 ml [sodium chloride 0.9 % intravenous solution] Route: IV; Rate: srm bolus; Site: left antecubital; 18:43 Follow up: IV Status: Completed infusion; IV Intake: 500ml dsf Intake: 18:43 IV: 500.00ml; Total: 500.00ml. dsf 18:44 IV: 50.00ml; Total: 550.00ml. dsf Order Results: Lab Order: CBC with Diff; SPEC'M 04/16/16 17:21 Test: WHITE BLOOD COUNT; Value: 11.3; Range: 4.0-10.0; Abnormal: Above high normal; Units: K/mm3; Status: F Test: RED BLOOD COUNT; Value: 3.98; Range: 4.30-6.10; Abnormal: Below low normal; Units: M/mm3; Status: F Test: HEMOGLOBIN; Value: 12.7; Range: 14.0-18.0; Abnormal: Below low normal; Units: g/dl; Status: F Test: HEMATOCRIT; Value: 36.2; Range: 42.0-52.0; Abnormal: Below low normal; Units: %; Status: F Test: MEAN CORPUSCULAR VOLUME; Value: 90.9; Range: 80.0-96.0; Units: fl; Status: F Test: MEAN CORPUSCULAR HEMOGLOBIN; Value: 31.9; Range: 27.0-33.0; Units: pg; Status: F Test: MEAN CORPUSCULAR HGB CONC; Value: 35.1; Range: 32.0-36.5; Units: g/dl; Status: F Test: RED CELL DISTRIBUTION WIDTH; Value: 12.0; Range: 11.5-14.5; Units: %; Status: F Test: PLATELET COUNT, AUTOMATED; Value: 295; Range: 150-450; Units: k/mm3; Status: F Test: NEUTROPHILS %; Value: 65.2; Range: 36.0-66.0; Units: %; Status: F Test: LYMPH %; Value: 24.6; Range: 24.0-44.0; Units: %; Status: F Test: MONO %; Value: 7.7; Range: 0.0-5.0; Abnormal: Above high normal; Units: %; Status: F Test: EOS %; Value: 0.4; Range: 0.0-3.0; Units: %; Status: F Test: BASO %; Value: 0.2; Range: 0.0-1.0; Units: %; Status: F Test: LARGE UNSTAINED CELL %; Value: 2.0; Range: 0.0-4.0; Units: %; Status: F Test: NEUTROPHILS #; Value: 7.4; Range: 1.8-7.7; Units: K/mm3; Status: F Test: LYMPH #; Value: 2.8; Range: 1.5-4.5; Units: K/mm3; Status: F Test: MONO #; Value: 0.9; Range: 0.0-0.8; Abnormal: Above high normal; Units: K/mm3; Status: F Test: EOS #; Value: 0.0; Range: 0.0-0.50; Units: K/mm3; Status: F Test: BASO #; Value: 0.0; Range: 0.0-0.2; Units: K/mm3; Status: F Test: LARGE UNSTAINED CELL #; Value: 0.2; Range: 0.0-0.4; Units: K/mm3; Status: F Lab Order: Basic Metabolic Profile; SPEC'M 04/16/16 17:20 Test: GLUCOSE, FASTING; Value: 172; Range: 80-110; Abnormal: Above high normal; Units: MG/DL; Status: F Test: BLOOD UREA NITROGEN; Value: 21; Range: 7-18; Abnormal: Above high normal; Units: MG/DL; Status: F Test: CREATININE FOR GFR; Value: 1.23; Range: 0.70-1.30; Units: MG/DL; Status: F Test: GLOMERULAR FILTRATION RATE; Value: > 60.0; Range: >49; Status: F Test: SODIUM LEVEL; Value: 137; Range: 136-145; Units: MEQ/L; Status: F Test: POTASSIUM SERUM; Value: 4.6; Range: 3.5-5.1; Units: MEQ/L; Status: F Test: CHLORIDE LEVEL; Value: 100; Range: 98-107; Units: MEQ/L; Status: F Test: CARBON DIOXIDE LEVEL; Value: 27; Range: 21-32; Units: MEQ/L; Status: F Test: ANION GAP; Value: 10; Range: 8-16; Units: MEQ/L; Status: F Test: CALCIUM LEVEL; Value: 9.9; Range: 8.8-10.2; Units: MG/DL; Status: F Test Note: ; Units are mL/min/1.73 m2 Chronic Kidney Disease Staging per NKF: Stage I & II GFR >=60 Normal to Mildly Decreased Stage III GFR 30-59 Moderately Decreased Stage IV GFR 15-29 Severely Decreased Stage V GFR <15 Very Little GFR Left ESRD GFR <15 on MEAT AND SEAFOOD MANAGER Lab Order: Sed Rate; SPEC'M 04/16/16 17:21 Test: ERYTHROCYTE SEDIMENTATION RATE; Value: 52; Range: 0-20; Abnormal: Above high normal; Units: mm/hr; Status: F Lab Order: CRP; SPEC'M 04/16/16 17:20 Test: C REACTIVE PROTEIN QUANTITATIV; Value: 0.78; Range: 0.00-0.30; Abnormal: Above high normal; Units: MG/DL; Status: F Radiology Order: CT Maxilofacial W/out Contrast Test: CT Maxilofacial W/out Contrast REASON FOR EXAMINATION: right facial/jaw swelling; ; HISTORY: Swelling.; TECHNIQUE: Multiple thin section helically-acquired axially-displayed and helically acquired coronall; y displayed computed tomographic images of the face are obtained from the mandible through the fronta; l sinuses, with images obtained at soft tissue and bone window. 2D reformatted images were performed.; ; FINDINGS:; Normal bony mineralization. No fractures.; Normal orbits.; Normal, clear paranasal sinuses.; Normal oral and nasal cavities.; Normal infratemporal fossa and deep parapharyngeal spaces with normal muscles of mastication. Normal; parotid and submandibular glands.; IMPRESSION:; Normal examination of the face.; Thank you for your kind referral of this patient; ; Outcome: 18:33 Discharge ordered by Provider. dt4 18:44 Discharge Assessment: Patient awake, alert and oriented x 3. No cognitive and/or dsf functional deficits noted. Patient verbalized understanding of disposition instructions. patient administered narcotics - no. CT Study completed. Property sent home with patient. 18:45 The following High Risk Discharge criteria are identified: None. Discharged to home dsf ambulatory. Condition: stable. Discharge instructions given to patient, Instructed on discharge instructions, follow up and referral plans. medication usage, no driving heavy equipment, Demonstrated understanding of instructions, medications, Pt was receptive of discharge instructions/ teaching. Prescriptions given X 2. 18:45 Patient left the ED. dsf Signatures: Dispatcher [employer] EDMS Janel Rangel, Meena Canada RN, JOHNY TRUSS MAKER jam1 Rosi Garcia RN RN kr3 Thomas, Melissa or4 Bea Hernandez RN RN [facility] Meena Kapoor,Chelsy Donald RN, Diane, PA-Argelia PA-C dt4 Santa Theodore MTDD
--- NOTE | 2016-04-18 19:47 | EDDOCDS ---
Physician Documentation [facility] Name: Armando Valle Age: 71 yrs Sex: Male : 1945 Arrival Date: 04/16/2016 Time: 13:24 Bed I3 / M3 Private MD: [place] Melissa [place] Disposition: 04/16/16 18:33 Discharged to Home/Self Care. Impression: Cellulitis and abscess of mouth - right lower dental abscess. - Condition is Stable. - Discharge Instructions: Dental Abscess. - Prescriptions for Clindamycin HCl 300 mg Oral Capsule - take 1 capsule by ORAL route every 8 hours; 30 capsule. Ultram 50 mg Oral Tablet - take 1 tablet by ORAL route every 6 hours As needed MDD: 4 tabs; 12 tablet. - Medication Reconciliation, Local Pharmacy Hours form. - Follow up: Emergency Department; When: As needed; Reason: Worsening of conditions. Follow up: Private Physician; When: 2 - 3 days; Reason: Wound/Symptom Recheck, Recheck today's complaints, Continuance of care. - Problem is new. - Symptoms are unchanged. Historical: - Allergies: no known allergies; - Home Meds: 1. amlodipine 2.5 mg Oral tab 1 tab once daily 2. aspirin 81 mg Oral tab 1 tab once daily 3. atorvastatin 40 mg oral tab 1 tab once daily 4. calcium daily 5. depakote 200 mg twice a day 6. divalproex 500 mg oral TbEC 1 tab 2 times per day 7. gabapentin 100 mg Oral cap 1 caps 3 times per day 8. hydrochlorothiazide 12.5 mg Oral cap 1 cap once daily 9. lamotrigine 150 mg Oral tab 1 tab nightly 10. lisinopril 40 mg Oral tab 1 tab once daily 11. meloxicam 7.5 mg oral tab 1 tab twice a day 12. metformin 750 mg Oral Tb24 1 tab twice a day 13. Sertraline 50 mg 50 mg daily 14. Vitamin D2 50,000 unit oral cap 1 cap once wkly - PMHx: Diabetes - NIDDM: controlled; Hypercholesterolemia; Hypertension; Seizure Disorder; - PSHx: vagus nerve stimulator; - Social history: Smoking status: Patient states was never smoker of tobacco. No barriers to communication noted. - Family history: Not pertinent. - : The pt / caregiver states he / she is not on anticoagulants. Home medication list is obtained from the patient. - Exposure Risk Screening:: None identified. Vital Signs: 04/16 13:27 BP 169 / 73 LA Sitting (auto/reg); Pulse 90; Resp 18 S; Temp 96.3(O); Pulse Ox 100% on mt4 R/A; Weight 86.18 kg / 189.99 lbs (R); Height 5 ft. 10 in. (177.80 cm) (R); Pain 8/10; 15:37 BP 167 / 78; Pulse 87; Resp 18; Temp 98.9(TE); Pulse Ox 97% on R/A; Pain 9/10; sew 18:11 BP 154 / 77; Pulse 67; Resp 18; Temp 97.8; Pulse Ox 97% ; Pain 6/10; jam1 13:27 Body Mass Index 27.26 (86.18 kg, 177.80 cm) mt4 MDM: 16:58 [facility] Payment Agreement was scanned into [employer] and attached to record. [facility] 16:58 Financial registration complete. gjb 17:01 IV Saline Lock ordered. dt4 17:01 Clindamycin 600 mg IVPB once over 30 mins; dilute in 50mL of NS or D5W ordered. dt4 17:01 NS 0.9% 500 ml IV at bolus once ordered. dt4 17:02 Solu-MEDROL 40 mg IVP once ordered. dt4 17:02 CBC with Diff Ordered. EDMS 17:02 Basic Metabolic Profile Ordered. EDMS 17:02 Sed Rate Ordered. EDMS 17:02 CRP Ordered. EDMS 17:02 CT Maxilofacial W/out Contrast Ordered. EDMS 04/17 15:25 T-Sheet-- Draft Copy was scanned into [employer] and attached to record. kf3 15:42 Radiology Report was scanned into [employer] and attached to record. kf3 16:23 Radiology Report was scanned into [employer] and attached to record. kf3 Administered Medications: 04/16 17:34 Drug: Clindamycin 600 mg [clindamycin 600 mg/50 mL in 5 % dextrose intravenous srm piggyback] Route: IVPB; Infused Over: 30 mins; Site: left antecubital; 18:16 Follow up: IV Status: Completed infusion srm 18:44 Follow up: IV Status: Completed infusion; IV Intake: 50ml dsf 17:34 Drug: Solu-MEDROL 40 mg [Solu-Medrol 500 mg intravenous solution (40 mg)] Route: IVP; srm Site: left antecubital; 18:16 Drug: NS 0.9% 500 ml [sodium chloride 0.9 % intravenous solution] Route: IV; Rate: srm bolus; Site: left antecubital; 18:43 Follow up: IV Status: Completed infusion; IV Intake: 500ml dsf Signatures: Dispatcher [employer] EDJanel Dale RN RN srm ClaritarJosh, Reg Reg kf3 Bea Hernandez RN RN dsf Meena Kapoor RN RN [facility] Ting Mccullough PA-C PABlanche justice4 Santa Theodore The chart was reviewed and I authenticate all verbal orders and agree with the evaluation and treatment provided.Attachments: 16:58 [facility] Payment Agreement gjb 04/17 15:25 T-Sheet-- Draft Copy kf3 Chart Complete MTDD
--- NOTE | 2016-04-18 19:47 | EDDOCDS ---
Nurse's Notes [facility] Name: Armando Valle Age: 71 yrs Sex: Male : 1945 Arrival Date: 04/16/2016 Time: 13:24 Bed I3 / M3 Private MD: [place] Melissa [place] Diagnosis: Cellulitis and abscess of mouth-right lower dental abscess Presentation: 04/16 13:54 Presenting complaint: Patient states: facial swelling I think I have an infected tooth, [facility] right lower. Adult Sepsis Screening: The patient does not have new or worsening altered mentation. Patient's respiratory rate is less than 22. Systolic blood pressure is greater than 100. Patient has a qSOFA score of 0- Negative Sepsis Screen. Suicide/Homicide risk assessment- the patient denies having any suicidal and/or homicidal ideations and does not present with any other emotional, behavioral or mental health complaints. Status: Patient is not a creative services specialist or dependent. Transition of care: patient was not received from another setting of care. 13:54 Acuity: LUIGI Level 3 [facility] 13:54 Method Of Arrival: Walkin/Carried/Asstd [facility] Triage Assessment: 13:57 General: Appears in no apparent distress, comfortable, Behavior is appropriate for age, [facility] cooperative. Pain: Location: mouth. EENT: Reports pain Pain is 9 out of 10 on a pain scale. Respiratory: Airway is patent Respiratory effort is even, unlabored, Respiratory pattern is regular, symmetrical. Derm: Skin is pink, warm & dry. Historical: - Allergies: no known allergies; - Home Meds: 1. amlodipine 2.5 mg Oral tab 1 tab once daily 2. aspirin 81 mg Oral tab 1 tab once daily 3. atorvastatin 40 mg oral tab 1 tab once daily 4. calcium daily 5. depakote 200 mg twice a day 6. divalproex 500 mg oral TbEC 1 tab 2 times per day 7. gabapentin 100 mg Oral cap 1 caps 3 times per day 8. hydrochlorothiazide 12.5 mg Oral cap 1 cap once daily 9. lamotrigine 150 mg Oral tab 1 tab nightly 10. lisinopril 40 mg Oral tab 1 tab once daily 11. meloxicam 7.5 mg oral tab 1 tab twice a day 12. metformin 750 mg Oral Tb24 1 tab twice a day 13. Sertraline 50 mg 50 mg daily 14. Vitamin D2 50,000 unit oral cap 1 cap once wkly - PMHx: Diabetes - NIDDM: controlled; Hypercholesterolemia; Hypertension; Seizure Disorder; - PSHx: vagus nerve stimulator; - Social history: Smoking status: Patient states was never smoker of tobacco. No barriers to communication noted. - Family history: Not pertinent. - : The pt / caregiver states he / she is not on anticoagulants. Home medication list is obtained from the patient. - Exposure Risk Screening:: None identified. Screenin:11 Screening information is obtained from the patient. Primary language is Greenlandic. Fall jam1 risk: No risks identified. Assistance ADL's: requires no assistance with activities of daily living. Abuse/DV Screen: The patient / caregiver reports he/she is: not in a situation that causes fear, pain or injury. Nutritional screening: No deficits noted. Exposure Risk Screening: None identified. Advance Directives: Currently, there is a health care proxy, [facility] sister of pt. There is no active DNR order. There is no living will. There is an active Power of Workers' Compensation Mediator, sister of pt medina williamson. Advance directive information does not know if advance directives have been placed in a prior [facility] medical record. Further advance directive information is declined. home support is adequate. Assessment: 15:37 General: Appears in no apparent distress, comfortable, Behavior is appropriate for age, kr3 cooperative. Pain: Location: right jaw. Neurological: Reports dizziness that has been a problem for ' a while'. EENT: Reports dental pain right side of mouth. Respiratory: Respiratory effort is even, unlabored. Derm: Skin is normal, Swollen area noted on right jaw. 17:24 General: Appears in no apparent distress, Behavior is appropriate for age, cooperative. srm Neurological: No deficits noted. EENT: Reports swelling to right lower jaw for 1-2 days. GI: No deficits noted. 18:44 Adult Sepsis Screening: The patient does not have new or worsening altered mentation. dsf Patient's respiratory rate is less than 22. Systolic blood pressure is greater than 100. Patient has a qSOFA score of 0- Negative Sepsis Screen. General: Appears in no apparent distress, comfortable, Behavior is appropriate for age, cooperative. Pain: Denies pain. Neurological: Level of Consciousness is awake, alert. Cardiovascular: Capillary refill < 3 seconds. Respiratory: Airway is patent Respiratory effort is even, unlabored, Respiratory pattern is regular, symmetrical. Derm: Skin is pink, warm & dry. Swollen area noted on right jaw. Vital Signs: 13:27 BP 169 / 73 LA Sitting (auto/reg); Pulse 90; Resp 18 S; Temp 96.3(O); Pulse Ox 100% on mt4 R/A; Weight 86.18 kg (R); Height 5 ft. 10 in. (177.80 cm) (R); Pain 8/10; 15:37 BP 167 / 78; Pulse 87; Resp 18; Temp 98.9(TE); Pulse Ox 97% on R/A; Pain 9/10; sew 18:11 BP 154 / 77; Pulse 67; Resp 18; Temp 97.8; Pulse Ox 97% ; Pain 6/10; jam1 13:27 Body Mass Index 27.26 (86.18 kg, 177.80 cm) mt4 Vitals: 13:27 Log In Time: April 16, 2016 at 13:24. mt4 ED Course: 13:25 Patient visited by Adry Petty. mt4 13:25 Patient moved to Waiting mt4 13:27 [facility] is Private Physician. mt4 13:29 Patient moved to Pre RCE mt4 13:55 Triage Initiated cjh 15:34 Patient moved to Triage 2 sew 15:37 Patient visited by Rosi Garcia,KARY. kr3 15:38 Patient visited by Chelsy Judge. sew 15:39 The patient / caregiver is instructed regarding the plan of care and ED course. Patient kr3 has correct armband on for positive identification. 16:36 Ting Mccullough PA-C is PHCP. dt4 16:36 Julius Long MD is Attending Physician. dt4 16:42 Patient visited by Ting Mccullough PA-C. dt4 16:57 Patient moved to I3 / M3 sew 16:58 [facility] Payment Agreement was scanned into [employer] and attached to record. gjb 17:12 Patient visited by Meena Montes PCA. jam1 17:24 CRP Sent. srm 17:24 Basic Metabolic Profile Sent. srm 17:24 CBC with Diff Sent. srm 17:24 Inserted saline lock: 20 gauge in left antecubital area and blood collected. srm 17:25 Patient visited by Janel Rangel RN. srm 17:26 Sed Rate Sent. srm 17:37 Patient visited by Janel Rangel RN. srm 17:[address] dsf 17:45 Patient moved to I3 / M3 srm 18:34 CT Maxilofacial W/out Contrast Returned. EDMS 18:44 Discontinued lock intact, bleeding controlled, pressure dressing applied, No dsf redness/swelling at site. No procedures done that require assistance. 04/17 15:25 T-Sheet-- Draft Copy was scanned into [employer] and attached to record. kf3 15:42 Radiology Report was scanned into [employer] and attached to record. kf3 16:23 Radiology Report was scanned into [employer] and attached to record. kf3 Administered Medications: 04/16 17:34 Drug: Clindamycin 600 mg [clindamycin 600 mg/50 mL in 5 % dextrose intravenous srm piggyback] Route: IVPB; Infused Over: 30 mins; Site: left antecubital; 18:16 Follow up: IV Status: Completed infusion srm 18:44 Follow up: IV Status: Completed infusion; IV Intake: 50ml dsf 17:34 Drug: Solu-MEDROL 40 mg [Solu-Medrol 500 mg intravenous solution (40 mg)] Route: IVP; srm Site: left antecubital; 18:16 Drug: NS 0.9% 500 ml [sodium chloride 0.9 % intravenous solution] Route: IV; Rate: srm bolus; Site: left antecubital; 18:43 Follow up: IV Status: Completed infusion; IV Intake: 500ml dsf Intake: 18:43 IV: 500.00ml; Total: 500.00ml. dsf 18:44 IV: 50.00ml; Total: 550.00ml. dsf Order Results: Lab Order: CBC with Diff; SPEC'M 04/16/16 17:21 Test: WHITE BLOOD COUNT; Value: 11.3; Range: 4.0-10.0; Abnormal: Above high normal; Units: K/mm3; Status: F Test: RED BLOOD COUNT; Value: 3.98; Range: 4.30-6.10; Abnormal: Below low normal; Units: M/mm3; Status: F Test: HEMOGLOBIN; Value: 12.7; Range: 14.0-18.0; Abnormal: Below low normal; Units: g/dl; Status: F Test: HEMATOCRIT; Value: 36.2; Range: 42.0-52.0; Abnormal: Below low normal; Units: %; Status: F Test: MEAN CORPUSCULAR VOLUME; Value: 90.9; Range: 80.0-96.0; Units: fl; Status: F Test: MEAN CORPUSCULAR HEMOGLOBIN; Value: 31.9; Range: 27.0-33.0; Units: pg; Status: F Test: MEAN CORPUSCULAR HGB CONC; Value: 35.1; Range: 32.0-36.5; Units: g/dl; Status: F Test: RED CELL DISTRIBUTION WIDTH; Value: 12.0; Range: 11.5-14.5; Units: %; Status: F Test: PLATELET COUNT, AUTOMATED; Value: 295; Range: 150-450; Units: k/mm3; Status: F Test: NEUTROPHILS %; Value: 65.2; Range: 36.0-66.0; Units: %; Status: F Test: LYMPH %; Value: 24.6; Range: 24.0-44.0; Units: %; Status: F Test: MONO %; Value: 7.7; Range: 0.0-5.0; Abnormal: Above high normal; Units: %; Status: F Test: EOS %; Value: 0.4; Range: 0.0-3.0; Units: %; Status: F Test: BASO %; Value: 0.2; Range: 0.0-1.0; Units: %; Status: F Test: LARGE UNSTAINED CELL %; Value: 2.0; Range: 0.0-4.0; Units: %; Status: F Test: NEUTROPHILS #; Value: 7.4; Range: 1.8-7.7; Units: K/mm3; Status: F Test: LYMPH #; Value: 2.8; Range: 1.5-4.5; Units: K/mm3; Status: F Test: MONO #; Value: 0.9; Range: 0.0-0.8; Abnormal: Above high normal; Units: K/mm3; Status: F Test: EOS #; Value: 0.0; Range: 0.0-0.50; Units: K/mm3; Status: F Test: BASO #; Value: 0.0; Range: 0.0-0.2; Units: K/mm3; Status: F Test: LARGE UNSTAINED CELL #; Value: 0.2; Range: 0.0-0.4; Units: K/mm3; Status: F Lab Order: Basic Metabolic Profile; SPEC'04/16/16 17:20 Test: GLUCOSE, FASTING; Value: 172; Range: 80-110; Abnormal: Above high normal; Units: MG/DL; Status: F Test: BLOOD UREA NITROGEN; Value: 21; Range: 7-18; Abnormal: Above high normal; Units: MG/DL; Status: F Test: CREATININE FOR GFR; Value: 1.23; Range: 0.70-1.30; Units: MG/DL; Status: F Test: GLOMERULAR FILTRATION RATE; Value: > 60.0; Range: >49; Status: F Test: SODIUM LEVEL; Value: 137; Range: 136-145; Units: MEQ/L; Status: F Test: POTASSIUM SERUM; Value: 4.6; Range: 3.5-5.1; Units: MEQ/L; Status: F Test: CHLORIDE LEVEL; Value: 100; Range: 98-107; Units: MEQ/L; Status: F Test: CARBON DIOXIDE LEVEL; Value: 27; Range: 21-32; Units: MEQ/L; Status: F Test: ANION GAP; Value: 10; Range: 8-16; Units: MEQ/L; Status: F Test: CALCIUM LEVEL; Value: 9.9; Range: 8.8-10.2; Units: MG/DL; Status: F Test Note: ; Units are mL/min/1.73 m2 Chronic Kidney Disease Staging per NKF: Stage I & II GFR >=60 Normal to Mildly Decreased Stage III GFR 30-59 Moderately Decreased Stage IV GFR 15-29 Severely Decreased Stage V GFR <15 Very Little GFR Left ESRD GFR <15 on [employer] Lab Order: Sed Rate; SPEC'04/16/16 17:21 Test: ERYTHROCYTE SEDIMENTATION RATE; Value: 52; Range: 0-20; Abnormal: Above high normal; Units: mm/hr; Status: F Lab Order: CRP; SPEC04/16/16 17:20 Test: C REACTIVE PROTEIN QUANTITATIV; Value: 0.78; Range: 0.00-0.30; Abnormal: Above high normal; Units: MG/DL; Status: F Radiology Order: CT Maxilofacial W/out Contrast Test: CT Maxilofacial W/out Contrast REASON FOR EXAMINATION: right facial/jaw swelling; ; HISTORY: Swelling.; TECHNIQUE: Multiple thin section helically-acquired axially-displayed and helically acquired coronall; y displayed computed tomographic images of the face are obtained from the mandible through the fronta; l sinuses, with images obtained at soft tissue and bone window. 2D reformatted images were performed.; ; FINDINGS:; Normal bony mineralization. No fractures.; Normal orbits.; Normal, clear paranasal sinuses.; Normal oral and nasal cavities.; Normal infratemporal fossa and deep parapharyngeal spaces with normal muscles of mastication. Normal; parotid and submandibular glands.; IMPRESSION:; Normal examination of the face.; Thank you for your kind referral of this patient; ; Outcome: 18:33 Discharge ordered by Provider. dt4 18:44 Discharge Assessment: Patient awake, alert and oriented x 3. No cognitive and/or dsf functional deficits noted. Patient verbalized understanding of disposition instructions. patient administered narcotics - no. CT Study completed. Property sent home with patient. 18:45 The following High Risk Discharge criteria are identified: None. Discharged to home dsf ambulatory. Condition: stable. Discharge instructions given to patient, Instructed on discharge instructions, follow up and referral plans. medication usage, no driving heavy equipment, Demonstrated understanding of instructions, medications, Pt was receptive of discharge instructions/ teaching. Prescriptions given X 2. 18:45 Patient left the ED. dsf Signatures: Dispatcher [employer] EDMS Janel Rangel, RN Meena Canada, TRANSPORTATION EQUIPMENT PAINTER TRANSPORTATION EQUIPMENT PAINTER jam1 Rosi GarciaRN RN kr3 Josh Miranda, Reg Reg kf3 Adry Petty mt4 Bea Hernandez RN RN dsf Meena Kapoor,KARY RN Chelsy Sanchez Diane, PA-C PA-C dt4 Santa Theodore Chart Complete MTDD
--- NOTE | 2016-04-18 19:47 | EDDOCDS ---
Physician Documentation [facility] Name: Armando Valle Age: 71 yrs Sex: Male : 1945 Arrival Date: 04/16/2016 Time: 13:24 Bed I3 / M3 Private MD: [place] Melissa [place] Disposition: 04/16/16 18:33 Discharged to Home/Self Care. Impression: Cellulitis and abscess of mouth - right lower dental abscess. - Condition is Stable. - Discharge Instructions: Dental Abscess. - Prescriptions for Clindamycin HCl 300 mg Oral Capsule - take 1 capsule by ORAL route every 8 hours; 30 capsule. Ultram 50 mg Oral Tablet - take 1 tablet by ORAL route every 6 hours As needed MDD: 4 tabs; 12 tablet. - Medication Reconciliation, Local Pharmacy Hours form. - Follow up: Emergency Department; When: As needed; Reason: Worsening of conditions. Follow up: Private Physician; When: 2 - 3 days; Reason: Wound/Symptom Recheck, Recheck today's complaints, Continuance of care. - Problem is new. - Symptoms are unchanged. Historical: - Allergies: no known allergies; - Home Meds: 1. amlodipine 2.5 mg Oral tab 1 tab once daily 2. aspirin 81 mg Oral tab 1 tab once daily 3. atorvastatin 40 mg oral tab 1 tab once daily 4. calcium daily 5. depakote 200 mg twice a day 6. divalproex 500 mg oral TbEC 1 tab 2 times per day 7. gabapentin 100 mg Oral cap 1 caps 3 times per day 8. hydrochlorothiazide 12.5 mg Oral cap 1 cap once daily 9. lamotrigine 150 mg Oral tab 1 tab nightly 10. lisinopril 40 mg Oral tab 1 tab once daily 11. meloxicam 7.5 mg oral tab 1 tab twice a day 12. metformin 750 mg Oral Tb24 1 tab twice a day 13. Sertraline 50 mg 50 mg daily 14. Vitamin D2 50,000 unit oral cap 1 cap once wkly - PMHx: Diabetes - NIDDM: controlled; Hypercholesterolemia; Hypertension; Seizure Disorder; - PSHx: vagus nerve stimulator; - Social history: Smoking status: Patient states was never smoker of tobacco. No barriers to communication noted. - Family history: Not pertinent. - : The pt / caregiver states he / she is not on anticoagulants. Home medication list is obtained from the patient. - Exposure Risk Screening:: None identified. Vital Signs: 04/16 13:27 BP 169 / 73 LA Sitting (auto/reg); Pulse 90; Resp 18 S; Temp 96.3(O); Pulse Ox 100% on mt4 R/A; Weight 86.18 kg / 189.99 lbs (R); Height 5 ft. 10 in. (177.80 cm) (R); Pain 8/10; 15:37 BP 167 / 78; Pulse 87; Resp 18; Temp 98.9(TE); Pulse Ox 97% on R/A; Pain 9/10; sew 18:11 BP 154 / 77; Pulse 67; Resp 18; Temp 97.8; Pulse Ox 97% ; Pain 6/10; jam1 13:27 Body Mass Index 27.26 (86.18 kg, 177.80 cm) mt4 MDM: 16:58 [facility] Payment Agreement was scanned into [employer] and attached to record. [facility] 16:58 Financial registration complete. gjb 17:01 IV Saline Lock ordered. dt4 17:01 Clindamycin 600 mg IVPB once over 30 mins; dilute in 50mL of NS or D5W ordered. dt4 17:01 NS 0.9% 500 ml IV at bolus once ordered. dt4 17:02 Solu-MEDROL 40 mg IVP once ordered. dt4 17:02 CBC with Diff Ordered. EDMS 17:02 Basic Metabolic Profile Ordered. EDMS 17:02 Sed Rate Ordered. EDMS 17:02 CRP Ordered. EDMS 17:02 CT Maxilofacial W/out Contrast Ordered. EDMS 04/17 15:25 T-Sheet-- Draft Copy was scanned into [employer] and attached to record. kf3 15:42 Radiology Report was scanned into [employer] and attached to record. kf3 16:23 Radiology Report was scanned into [employer] and attached to record. kf3 Administered Medications: 04/16 17:34 Drug: Clindamycin 600 mg [clindamycin 600 mg/50 mL in 5 % dextrose intravenous srm piggyback] Route: IVPB; Infused Over: 30 mins; Site: left antecubital; 18:16 Follow up: IV Status: Completed infusion srm 18:44 Follow up: IV Status: Completed infusion; IV Intake: 50ml dsf 17:34 Drug: Solu-MEDROL 40 mg [Solu-Medrol 500 mg intravenous solution (40 mg)] Route: IVP; srm Site: left antecubital; 18:16 Drug: NS 0.9% 500 ml [sodium chloride 0.9 % intravenous solution] Route: IV; Rate: srm bolus; Site: left antecubital; 18:43 Follow up: IV Status: Completed infusion; IV Intake: 500ml dsf Signatures: Dispatcher [employer] EDJanel Dale RN RN srm ClaritarJosh, Reg Reg kf3 Bea Hernandez RN RN dsf Meena Kapoor RN RN [facility] Ting Mccullough PA-C PABlanche justice4 Santa Theodore The chart was reviewed and I authenticate all verbal orders and agree with the evaluation and treatment provided.Attachments: 16:58 [facility] Payment Agreement gjb 04/17 15:25 T-Sheet-- Draft Copy kf3 Chart Complete MTDD
== END 2016-04-16 18:45 | disposition home or self-care (01) ==
LOC: M ED 13:24
DX: K04.7 Periapical abscess without sinus (principal); E11.9 Type 2 diabetes mellitus without complications; I10 Essential (primary) hypertension; E78.00 Pure hypercholesterolemia, unspecified; G40.909 Epilepsy, unspecified, not intractable, without status epilepticus; Z79.899 Other long term (current) drug therapy; Z79.82 Long term (current) use of aspirin; Z79.84 Long term (current) use of oral hypoglycemic drugs
CPT/HCPCS: 36415; 70486; 80048; 85025; 85652; 86140; 96365; 96375; 99284; J2920

== ENCOUNTER 2016-06-22 01:20 | Emergency (ER) | payer OTHER, MEDICARE ==
[~2016-06-22] VITALS: Ht 177.8 cm; Wt 74.8 kg
[~2016-06-22 01:20] MED LIST changes: -SERT-141 PO; +SERT50TA PO
[2016-06-22] MEDS ORDERED: NITR0.4S14 SL (01:38)
[2016-06-22 02:58] LABS: BASO % 0.1 % (0.0-1.0); EOS # 0.1 K/mm3 (0.0-0.50); EOS % 0.4 % (0.0-3.0); LARGE UNSTAINED CELL # 0.1 K/mm3 (0.0-0.4); LARGE UNSTAINED CELL % 0.6 % (0.0-4.0); LYMPH # 1.9 K/mm3 (1.5-4.5); LYMPH % 10.7 % (24.0-44.0); MEAN CORPUSCULAR HEMOGLOBIN 31.9 pg (27.0-33.0); MEAN CORPUSCULAR VOLUME 91.1 fl (80.0-96.0); MONO # 0.7 K/mm3 (0.0-0.8); MONO % 4.4 % (0.0-5.0); NEUTROPHILS # 14.2 K/mm3 (1.8-7.7); NEUTROPHILS % 83.9 % (36.0-66.0); PLATELET COUNT, AUTOMATED 281 k/mm3 (150-450); RED CELL DISTRIBUTION WIDTH 12.5 % (11.5-14.5); WHITE BLOOD COUNT 16.9 K/mm3 (4.0-10.0)
[2016-06-22 03:11] LABS: ALBUMIN 3.7 GM/DL (3.2-5.2); ALBUMIN/GLOBULIN RATIO 1.09 (1.00-1.93); ALKALINE PHOSPHATASE 37 U/L (45-117); ALT/SGPT 25 U/L (12-78); ANION GAP 9 MEQ/L (8-16); AST/SGOT 19 U/L (15-37); BILIRUBIN,DIRECT < 0.1 MG/DL (0.0-0.2); BILIRUBIN,TOTAL 0.3 MG/DL (0.2-1.0); BLOOD UREA NITROGEN 29 MG/DL (7-18); CALCIUM LEVEL 9.6 MG/DL (8.8-10.2); CARBON DIOXIDE LEVEL 27 MEQ/L (21-32); CHLORIDE LEVEL 101 MEQ/L (98-107); CREATININE FOR GFR 1.65 MG/DL (0.70-1.30); GLOMERULAR FILTRATION RATE 44.3 (>49); GLUCOSE, FASTING 204 MG/DL (80-110); POTASSIUM SERUM 4.1 MEQ/L (3.5-5.1); SODIUM LEVEL 137 MEQ/L (136-145); TOTAL PROTEIN 7.1 GM/DL (6.4-8.2)
[2016-06-22] MEDS ORDERED: MORPHINE 4 MG/ML 1ML SYRINGE As Ordered ONE (03:46)
[2016-06-22] MEDS ORDERED: MORPHINE 4 MG/ML 1ML SYRINGE IV ONE (04:00)
--- NOTE | 2016-06-22 04:40 | REPUSA ---
CLINICAL HISTORY: Abdominal pain. TECHNIQUE: Multiple axial, sagittal and coronal CT images were obtained through the abdomen and pelvi s without administration of oral or IV contrast material. COMMENTS: The liver is moderately enlarged with decreased attenuation without mass or defect. There is no intra or extrahepatic biliary ductal dilatation. The spleen is normal. The gallbladder contains multiple g allstones. The pancreas is of normal contour and attenuation characteristics. There is no evidence of adrenal mass. There are nonobstructing left renal stones the largest measuring 8 mm. There is mild left hydroureteronephrosis. There is left perirenal fat stranding. There is no evidence for appendicitis. There is no bowel wall thickening. No evidence for small or la rge bowel obstruction. There is no evidence of abdominal ascites or lymphadenopathy. There is no evidence of intrinsic or extrinsic bladder mass. There is no pelvic ascites or lymphadeno joseph. Images of the lung bases show no evidence of pleural or parenchymal mass. There are no pleural effusi ons. The bony structures are free of lytic or blastic lesions. Multilevel degenerative changes are seen in volving the thoracolumbar spine. Scattered calcifications are seen involving the aorta and major branches compatible with atherosclero sis. IMPRESSION: Moderate hepatomegaly with fatty infiltration. Cholelithiasis. Nonobstructing left renal stones. Left hydroureteronephrosis, probably secondary to recent passage of a calculus. Uncomplicated clonic diverticulosis. Fluid in the stomach. Fluid filled large bowel. Thank you for your kind referral of this patient.
[2016-06-22] MEDS ORDERED: NS 1,000 ML IV ONE (05:15)
[2016-06-22] MEDS ORDERED: KETOROLAC 30 MG/ML VIAL (J1885) IV ONE (06:00)
[2016-06-22 06:43] VITALS: BP 133/66
== END 2016-06-22 06:55 | disposition home or self-care (01) ==
LOC: EDBD 01:20 → M ED 03:05
DX: N20.1 Calculus of ureter (principal); E11.9 Type 2 diabetes mellitus without complications; I10 Essential (primary) hypertension; E78.5 Hyperlipidemia, unspecified; G40.909 Epilepsy, unspecified, not intractable, without status epilepticus; K21.9 Gastro-esophageal reflux disease without esophagitis; Z79.899 Other long term (current) drug therapy; Z79.82 Long term (current) use of aspirin; Z79.84 Long term (current) use of oral hypoglycemic drugs
CPT/HCPCS: 36415; 74176; 80048; 80076; 83690; 85025; 96361; 96374; 96375; 99283; J1885

== ENCOUNTER 2017-01-04 12:32 | Emergency (ER) | payer MEDICARE, OTHER ==
[~2017-01-04] VITALS: Ht 177.8 cm; Wt 86.4 kg
[~2017-01-04 12:32] MED LIST changes: -ATOR40TA PO; +ATOR40TA75 PO; -MELO7.5T6 PO; +MELO7.5T7 PO; -METF500T PO; +METF500T13 PO; +NITR0.4S14 SL
[2017-01-04] MEDS ORDERED: MORPHINE 4 MG/ML 1ML SYRINGE IV ONE ×2 (13:00→17:15)
[2017-01-04 13:13] LABS: BASO % 0.3 % (0.0-1.0); EOS # 0.1 10^3/uL (0.0-0.50); EOS % 1.2 % (0.0-3.0); IMMATURE GRANULOCYTE % 0.3 % (0-0); LYMPH # 2.5 10^3/uL (1.5-4.5); LYMPH % 42.6 % (24.0-44.0); MEAN CORPUSCULAR HEMOGLOBIN 32.9 pg (27.0-33.0); MEAN CORPUSCULAR HGB CONC 36.2 g/dl (32.0-36.5); MEAN CORPUSCULAR VOLUME 90.9 fl (80.0-96.0); MONO # 0.7 10^3/uL (0.0-0.8); NEUTROPHILS # 2.5 10^3/uL (1.8-7.7); NEUTROPHILS % 43.6 % (36.0-66.0); PLATELET COUNT, AUTOMATED 217 10^3/uL (150-450); RED CELL DISTRIBUTION WIDTH 11.8 % (11.5-14.5); WHITE BLOOD COUNT 5.8 10^3/uL (4.0-10.0)
[2017-01-04 13:22] LABS: INR 0.99
--- NOTE | 2017-01-04 13:29 | REP ---
PA and lateral chest: Comparison is 04/03/2016. The lung wesley are clear. The cardiac size is normal The yolanda, mediastinum, and bony thorax are unremarkable. Impression: Negative PA and lateral chest. There is a electronic device superimposed over the left hemithorax as previously. No interval change. Signed by Mir Marx MD 01/04/2017 01:21 P
[2017-01-04 13:37] LABS: ALBUMIN 3.2 GM/DL (3.2-5.2); ALBUMIN/GLOBULIN RATIO 0.82 (1.00-1.93); ALKALINE PHOSPHATASE 36 U/L (45-117); ALT/SGPT 28 U/L (12-78); ANION GAP 5 MEQ/L (8-16); AST/SGOT 13 U/L (15-37); BILIRUBIN,DIRECT < 0.1 MG/DL (0.0-0.2); BILIRUBIN,TOTAL 0.2 MG/DL (0.2-1.0); BLOOD UREA NITROGEN 13 MG/DL (7-18); CALCIUM LEVEL 9.4 MG/DL (8.8-10.2); CARBON DIOXIDE LEVEL 32 MEQ/L (21-32); CHLORIDE LEVEL 98 MEQ/L (98-107); CREATININE FOR GFR 0.97 MG/DL (0.70-1.30); GLOMERULAR FILTRATION RATE > 60.0 (>49); GLUCOSE, FASTING 194 MG/DL (80-110); POTASSIUM SERUM 4.3 MEQ/L (3.5-5.1); SODIUM LEVEL 135 MEQ/L (136-145); TOTAL PROTEIN 7.1 GM/DL (6.4-8.2)
[2017-01-04] MEDS ORDERED: ISOVUE-370 76% 100ML VIAL (Q9967) As Ordered ONE ×2 (13:45→15:00)
--- NOTE | 2017-01-04 15:56 | REP ---
CT pulmonary angiogram: With IV contrast. History: Chest pain. Shortness of breath. Comparison studies: Comparison CT study is from April 03, 2016. Contrast dose: 125 cc's of Isovue 370 are administered intravenously. The initial bolus was [address] acquisition failed due to a technical malfunction and an additional 40 ml was administered to accomplish the study. CT technique: Helical scanning is acquired and overlapping 1.5 mm and contiguous 3 mm axial images are reformatted. In addition, a 3-D work station is deployed to generate thick slab maximum intensity projection images in sagittal and coronal imaging projections. CT pulmonary angiographic findings: On the second repeat CT acquisition there is good opacification of the pulmonary arterial tree. Initial CT acquisition suffered from technical failure with the machine producing a delay and suboptimal visualization. There is no CT evidence of pulmonary embolism on the repeat images. The thoracic aorta enhances homogeneously and is normal in caliber and contour. No pleural or pericardial effusion is seen. No hilar or mediastinal mass or adenopathy is observed. No pulmonary nodule or infiltrate is appreciated. Maximum intensity projection images show no additional abnormality. No vessel cutoff or filling defect is seen. No adrenal lesion is observed. There is moderate diffuse fatty infiltration of the liver. Small calcified gallstones are visible in the dependent portion of the gallbladder. Left coronary artery vascular calcification is noted. Impression: 1. No CT evidence of pulmonary embolus. 2. Fatty infiltration of the liver. 3. Left coronary artery vascular calcification. 4. Cholelithiasis. Signed by Titus Baxter MD 01/04/2017 05:02 P
--- NOTE | 2017-01-04 15:57 | REP ---
CT abdomen and pelvis with IV but without oral contrast: History: Diffuse abdominal pain. CT contrast dose: 145 ml of intravenous Isovue 370. CT findings: There is diffuse fatty infiltration of the liver. Calcified small gallstones are seen in the neck of the gallbladder. The gallbladder is not dilated and there is no evidence of wall thickening or pericholecystic fluid. Pancreas is unremarkable. No adrenal lesion is seen on either side. No focal hepatic or splenic lesion is seen. The kidneys enhance symmetrically and are morphologically intact except for two or three small cortical cysts in the left kidney under a centimeter in diameter. No retroperitoneal mass or adenopathy is observed. There is left colonic diverticulosis affecting the descending and sigmoid segments of the colon without CT evidence of diverticulitis. Urinary bladder, seminal vesicles, and prostate are unremarkable. No abdominal wall defect is seen. A normal appendix is seen in the right lower quadrant. No bony destructive lesion is appreciated. Impression: Left colonic diverticulosis. Fatty infiltration of the liver. Cholelithiasis. Tiny left cortical renal cysts. No acute abdominal abnormality. Signed by Titus Baxter MD 01/04/2017 05:02 P
--- NOTE | 2017-01-04 17:04 | ECGEPIP ---
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
[2017-01-04 19:56] VITALS: BP 165/78
--- NOTE | 2017-01-05 03:01 | ECGEPIP ---
Stationary ECG Study 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
--- NOTE | 2017-01-05 08:27 | ED PDOC ---
Post-Departure Follow-Up certified letter sent regarding radiology reports Chelsy Wills MD Jan 05, 2017 08:27
== END 2017-01-04 21:08 | disposition home or self-care (01) ==
LOC: M ED 12:32
DX: R07.9 Chest pain, unspecified (principal); R06.02 Shortness of breath; R42 Dizziness and giddiness; E11.9 Type 2 diabetes mellitus without complications; I10 Essential (primary) hypertension; E78.5 Hyperlipidemia, unspecified; R56.9 Unspecified convulsions; I35.0 Nonrheumatic aortic (valve) stenosis; Z82.49 Family history of ischemic heart disease and other diseases of the circulatory system; Z97.8 Presence of other specified devices; Z79.899 Other long term (current) drug therapy; Z79.82 Long term (current) use of aspirin; Z79.84 Long term (current) use of oral hypoglycemic drugs
CPT/HCPCS: 71020; 71275; 74177; 80048; 80076; 80164; 82550; 82553; 83690; 84484; 85025; 85610; 85730; 93005; 93041; 94760; 96374; 99285; Q9967

== ENCOUNTER 2017-05-02 16:58 | Emergency (ER) | payer MEDICARE, OTHER | END 2017-05-02 18:29 | disposition home or self-care (01) | LOC: M ED 16:58 | DX: S40.012A Contusion of left shoulder, initial encounter (principal); S00.01XA Abrasion of scalp, initial encounter; S60.511A Abrasion of right hand, initial encounter; W01.0XXA Fall on same level from slipping, tripping and stumbling without subsequent striking against object, initial encounter; Y92.099 Unspecified place in other non-institutional residence as the place of occurrence of the external cause; Y93.01 Activity, walking, marching and hiking; E11.9 Type 2 diabetes mellitus without complications; I10 Essential (primary) hypertension; M50.322 Other cervical disc degeneration at C5-C6 level; M50.323 Other cervical disc degeneration at C6-C7 level; Z79.82 Long term (current) use of aspirin; Z79.899 Other long term (current) drug therapy; Z79.84 Long term (current) use of oral hypoglycemic drugs | CPT/HCPCS: 73030 ==

== ENCOUNTER 2018-07-06 16:48 | Observation (INO) | payer OTHER ==
[~2018-07-06] VITALS: Ht 177.8 cm; Wt 80.0 kg
[~2018-07-06 16:48] MED LIST changes: -AMLO2.5T PO; +AMLO2.5T3 PO; -ASPI1TAB PO; +ASPI81TA26 PO; -DRIS50002 PO; +DRIS50003 PO; +GABA-1171 PO; -GABA-279 PO; -LAMO200T PO; +LAMO200T2 PO; +LISI40TA52 PO; -LISI40TAB PO; +SERT-141 PO; -SERT50TA PO
[2018-07-06 18:16] LABS: BASO % 0.3 % (0.0-1.0); EOS # 0.1 10^3/uL (0.0-0.50); EOS % 0.7 % (0.0-3.0); HEMATOCRIT 31.1 % (42.0-52.0); HEMOGLOBIN 10.9 g/dl (13.5-17.5); LYMPH % 27.9 % (24.0-44.0); MEAN CORPUSCULAR HEMOGLOBIN 32.5 pg (27.0-33.0); MEAN CORPUSCULAR VOLUME 92.8 fl (80.0-96.0); MONO # 0.9 10^3/uL (0.0-0.8); NEUTROPHILS # 4.3 10^3/uL (1.8-7.7); NEUTROPHILS % 58.7 % (36.0-66.0); PLATELET COUNT, AUTOMATED 231 10^3/uL (150-450); RED BLOOD COUNT 3.35 10^6/uL (4.30-6.10); WHITE BLOOD COUNT 7.3 10^3/uL (4.0-10.0)
[2018-07-06 18:30] LABS: INR 1.05; PROTHROMBIN TIME 13.8 SECONDS (12.1-14.4)
[2018-07-06 18:31] LABS: PARTIAL THROMBOPLASTIN TIME 24.7 SECONDS (25.4-37.6)
[2018-07-06 18:51] LABS: BLOOD UREA NITROGEN 18 MG/DL (7-18); CALCIUM LEVEL 9.4 MG/DL (8.8-10.2); CARBON DIOXIDE LEVEL 30 MEQ/L (21-32); CHLORIDE LEVEL 102 MEQ/L (98-107); CPK CREATINE PHOSPHOKINASE 135 U/L (39-308); CREATININE FOR GFR 1.09 MG/DL (0.70-1.30); FREE T4 0.82 NG/DL (0.76-1.46); GLOMERULAR FILTRATION RATE > 60.0 (>42); GLUCOSE, FASTING 129 MG/DL (70-100); MB/CK RELATIVE INDEX 1.93 (< OR =4); POTASSIUM SERUM 4.3 MEQ/L (3.5-5.1); SODIUM LEVEL 138 MEQ/L (136-145); TROPONIN I < 0.02 NG/ML (< 0.10)
[2018-07-06] MEDS ORDERED: ISOVUE-370 76% 100ML VIAL (Q9967) As Ordered ONE (18:58)
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
[2018-07-06] MEDS ORDERED: DEPA500T2 PO (19:45)
[2018-07-06] MEDS ORDERED: B COTAB3 PO (19:45)
[2018-07-06] MEDS ORDERED: MOBI4TAB PO (19:45)
[2018-07-06] MEDS ORDERED: LISI40TA PO (19:45)
--- NOTE | 2018-07-06 19:50 | REP ---
CT brain without contrast: History: Syncope. Comparison CT study May 02, 2017. CT findings: Digital preliminary tubular splitting machine tender radiograph is unremarkable. Bone window settings show heavy vascular calcification in the distal vertebral and distal carotid arteries. Visualized paranasal sinuses are clear. No bony calvarial lesion is appreciated. No intraorbital abnormality is seen. On soft-tissue window settings there is moderate diffuse cerebral atrophy as noted previously. There is no evidence of intracranial hemorrhage. No mass, infarction, extra-axial fluid collection or midline shift is seen. Impression: Moderate diffuse cerebral atrophy. Vascular calcification. No acute intracranial abnormality. Electronically Signed by Titus Baxter MD 07/06/2018 08:18 P
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
[2018-07-06] MEDS ORDERED: DEXTROSE 50% 50 ML SYRINGE IV PRN (22:00)
[2018-07-06] MEDS ORDERED: GLUCOSE 4 GM CHEW TABLET PO PRN (22:00)
[2018-07-06] MEDS ORDERED: GLUCAGON FOR INJ 1 MG VIAL (J1610) SC PRN (22:00)
[2018-07-06] MEDS ORDERED: MELOXICAM (MOBIC) 7.5 MG TAB PO PRN (22:00)
--- NOTE | 2018-07-06 22:02 | ECGEPIP ---
Stationary ECG Study [facility] - ED Test Date: 2018-07-06 Pat Name: RINA HELM Department: Room: - Gender: M Executive Manager: JJamia : 1945 Requested By: EBONY Dhillon Order Number: [id number] Reading MD: Chelsy Wills Measurements Intervals [place] Rate: 64 P: 11 [place]: 198 QRS: -7 QRSD: 101 T: 101 QT: 370 QTc: 383 Interpretive Statements SINUS RHYTHM LEFT VENTRICULAR HYPERTROPHY AND ST-T CHANGE SEPTAL WI, AGE INDETERMINATE SIMILAR 01/04/17 Electronically Signed On 07-06-2018 22:02:21 EDT by Chelsy Wills
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
[2018-07-06] MEDS ORDERED: ACETAMINOPHEN TAB 650MG DOSE (2X325MG) PO PRN (22:15)
[2018-07-06] MEDS: lamoTRIgine 100MG TAB PO SCH (22:51)
[2018-07-06] MEDS: DIVALPROEX 500MG *ER* TAB PO SCH (22:51)
[2018-07-07 06:00] VITALS: BP_SYST 143; BP_SYST 164; BP_SYST 176; BP_DIAS 63; BP_DIAS 75; BP_DIAS 79
[2018-07-07] MEDS: HumaLOG INSULIN (NovoLOG) PER UNIT SC SCH ×5 (07:30→20:22)
[2018-07-07] MEDS: HEPARIN SOD (PORCINE) 5000 UNITS/ML VIAL SC SCH ×2 (09:32→21:04)
[2018-07-07] MEDS: hydroCHLOROthiazide 12.5 MG CAPSULE PO SCH (09:32)
[2018-07-07] MEDS: ASPIRIN 81 MG ENTERIC TAB PO SCH (09:39)
[2018-07-07] MEDS: SERTRALINE HCL 50 MG TAB PO SCH (09:39)
[2018-07-07] MEDS: DIVALPROEX 500MG *ER* TAB PO SCH ×2 (09:39→21:05)
[2018-07-07] MEDS: LISINOPRIL 40 MG TAB PO SCH (09:41)
--- NOTE | 2018-07-07 12:38 | ECHO ---
DATE OF STUDY: 07/07/2018 REFERRING PHYSICIAN: Dr. Adry Arguelles INDICATION: Syncope. HEIGHT: 177 cm. WEIGHT: 80.0 kg. 2-D MEASUREMENTS: Ventricular septum: 1.21 cm Posterior wall: 1.16 cm Left ventricle diastole: 4.3 cm Aortic root: 3.5 cm Left atrium: 4.4 cm Aortic annulus: 2.1 cm Inferior vena cava: 1.8 cm DOPPLER MEASUREMENTS: Mild aortic stenosis Mild aortic regurgitation Peak aortic valve velocity: 263 cm/sec Aortic valve VTI: 59.0 cm Peak aortic valve gradient: 28 mmHg Mean aortic valve gradient: 18 mmHg LVOT velocity: 127 cm/sec LVOT VTI: 28.5 cm Aortic regurgitation pressure half time: 546 ms Mild mitral regurgitation Mitral E velocity: 66.8 cm/sec Mitral A velocity: 63.2 cm/sec Mitral deceleration time: 218 ms Pulmonary artery systolic pressure: 31 mmHg Very mild tricuspid regurgitation MITRAL ANNULAR TISSUE DOPPLER: E prime septal: 6.2 cm/sec E prime lateral: 6.1 cm/sec DESCRIPTION: The rhythm was sinus. No pericardial effusion. Image quality was adequate. Subcostal window was technically difficult. This was a 2-D, M-mode, color flow Doppler and pulse wave Doppler examination and included mitral annular tissue Doppler. CONCLUSIONS: 1. Borderline concentric left ventricle hypertrophy. Normal regional LV wall motion and wall thickening. Normal LV systolic function. LVEF 65% by visual estimate. Probably normal LV diastolic function for age. 2. Moderately severe focal thickening and focal calcific deposits of a 3-cuspid aortic valve with mild reduction in mobility of the aortic cusps. Mild aortic stenosis. Mild aortic regurgitation. 3. Mild left atrial dilatation. 4. Otherwise normal appearing echocardiogram Doppler findings.
--- NOTE | 2018-07-07 13:03 | IPNPDOC ---
Subjective Date Seen The patient was seen on 07/07/18. Subjective Chief Complaint/HPI Patient is significant up, ate his breakfast and offers no new complaints at the present time General: Reports: Normal Appetite; Denies: Chills, Night Sweats, Fatigue, Malaise Constitutional: Denies: Chills, Fever, Night Sweats Eyes: Denies: Pain, Vision change ENT: Denies: Head Aches, Ear Pain, Dysphagia Skin: Denies: Rash, Lesions, Breakdown Pulmonary: Denies: Dyspnea, Cough Cardiovascular: Denies: Chest Pain, Palpitations, Orthopnea, Paroxysmal Noc. Dyspnea, Lt Headedness Gastrointestinal: Denies: Nausea, Vomiting, Abdominal Pain, Diarrhea, Constipation Genitourinary: Denies: Dysuria, Frequency, Incontinence, Retention Hematologic: Denies: Bruising, Bleeding Excessively Musculoskeletal: Denies: Neck Pain, Back Pain, Joint Pain, Muscle Pain, Spasms Neurological: Denies: Weakness, Numbness, Change in speech, Confusion Psych: Reports: Mood Normal; Denies: Depression, Memory Issues Objective Physical Examination General Exam: Positive: Alert, Cooperative Eye Exam: Positive: PERRLA, Conjunctiva & lids normal, EOMI; Negative: Sclera icteric ENT Exam: Positive: Atraumatic, Mucous membr. moist/pink, Pharynx Normal Neck Exam: Positive: Supple; Negative: JVD, thyromegaly Chest Exam: Positive: Clear to auscultation, Normal air movement Heart Exam: Positive: Rate Normal, Regular Rhythm, Normal S1, Normal S2; Negative: Murmurs, Rubs Telemetry: Positive: No significant arrhythmia Abdomen Exam: Positive: Normal bowel sounds, Soft; Negative: Tenderness, Hepatospenomegaly Male Exam: Positive: Normal Genital Exam Extremity Exam: Positive: Normal pulses; Negative: Clubbing, Cyanosis, Edema Skin Exam: Positive: Nl turgor and temperature; Negative: Rash, Breakdown Neuro Exam: Positive: Normal Gait, Normal Speech, Cranial Nerves 3-12 NL, Ref lexes 2+ Psych Exam: Positive: Mental status NL, Mood NL, Oriented x 3 Assessment /Plan Problems (1) Episode of syncope Status: Acute Response to Treatment: Stable Problem Text: Possible syncope versus breakthrough seizure She was completely asymptomatic at the present time Awaiting echocardiogram We'll also order MRI of brain without contrast to rule out any neurological pathology Continue Depakote and Lamictal Seizure precautions Close monitoring (2) Seizure Status: Acute Response to Treatment: Stable Problem Text: As above Plan/VTE VTE Prophylaxis Ordered?: Yes VS, I&O, 24H, Fishbone Vital Signs/I&O Vital Signs Date Time Temp Pulse Resp B/P (MAP) Pulse Ox O2 Delivery O2 Flow Rate FiO2 07/07/18 09:41 75 163/79 07/07/18 06:00 96.6 16 96 07/06/18 22:33 Room Air I&O- Last 24 Hours up to 6 AM 07/07/18 06:00 Intake Total 0 ml Output Total 300 ml Balance -300 ml Laboratory Data 24H LABS Laboratory Tests 2 07/06/18 18:02: Immature Granulocyte % (Auto) 0.4, White Blood Count 7.3, Red Blood Count 3.35L, Hemoglobin 10.9L, Hematocrit 31.1L, Mean Corpuscular Volume 92.8, Mean Corpuscular Hemoglobin 32.5, Mean Corpuscular Hemoglobin Concent 35.0, Red Cell Distribution Width 11.9, Platelet Count 231, Neutrophils (%) (Auto) 58.7, Lymphocytes (%) (Auto) 27.9, Monocytes (%) (Auto) 12.0H, Eosinophils (%) (Auto) 0.7, Basophils (%) (Auto) 0.3, Neutrophils # (Auto) 4.3, Lymphocytes # (Auto) 2.0, Monocytes # (Auto) 0.9H, Eosinophils # (Auto) 0.1, Basophils # (Auto) 0.0, Nucleated Red Blood Cells % (auto) 0.0, Prothrombin Time 13.8, Prothromb Time International Ratio 1.05, Activated Partial Thromboplast Time 24.7L, Anion Gap 6L, Glomerular Filtration Rate > 60.0, Blood Urea Nitrogen 18, Creatinine 1.09, Sodium Level 138, Potassium Level 4.3, Chloride Level 102, Carbon Dioxide Level 30, Calcium Level 9.4, Total Creatine Kinase 135, Magnesium Level 2.0, Creatine Kinase MB 3.0, Creatine Kinase MB Relative Index 1.93, Troponin I < 0.02, Thyro id Stimulating Hormone (TSH) 1.780, Free Thyroxine 0.82, Valproic Acid (Depakene) Level 69.0 07/07/18 06:13: 07/07/18 07:16: Bedside Glucose (Misc Panel) 119H 07/07/18 11:27: Bedside Glucose (Misc Panel) 201H CBC/BMP Laboratory Tests 07/06/18 18:02 Red Blood Count 3.35 L, Mean Corpuscular Volume 92.8, Mean Corpuscular Hemoglobin 32.5, Mean Corpuscular Hemoglobin Concent 35.0, Red Cell Distribution Width 11.9, Neutrophils (%) (Auto) 58.7, Lymphocytes (%) (Auto) 27.9, Monocytes (%) (Auto) 12.0 H, Eosinophils (%) (Auto) 0.7, Basophils (%) (Auto) 0.3, Neutrophils # (Auto) 4.3, Lymphocytes # (Auto) 2.0, Monocytes # (Auto) 0.9 H, Eosinophils # (Auto) 0.1, Basophils # (Auto) 0.0, Calcium Level 9.4, Total Creatine Kinase 135 BARBARA CASTANEDA MD Jul 07, 2018 13:03
[2018-07-07 14:00] VITALS: BP 166/76
[2018-07-07] MEDS ORDERED: ATORVASTATIN 20 MG TAB PO SCH (21:00)
[2018-07-07] MEDS: lamoTRIgine 100MG TAB PO SCH (21:05)
[2018-07-07 22:00] VITALS: BP 159/60
[2018-07-08 06:00] VITALS: BP_SYST 136; BP_SYST 156; BP_SYST 161; BP_DIAS 59; BP_DIAS 72; BP_DIAS 74
[2018-07-08] MEDS: HumaLOG INSULIN (NovoLOG) PER UNIT SC SCH ×2 (09:42→14:11)
[2018-07-08] MEDS: HEPARIN SOD (PORCINE) 5000 UNITS/ML VIAL SC SCH (09:42)
[2018-07-08] MEDS: ASPIRIN 81 MG ENTERIC TAB PO SCH (09:43)
[2018-07-08] MEDS: SERTRALINE HCL 50 MG TAB PO SCH (09:43)
[2018-07-08] MEDS: DIVALPROEX 500MG *ER* TAB PO SCH (09:43)
[2018-07-08 09:44] VITALS: BP 154/70
[2018-07-08] MEDS: LISINOPRIL 40 MG TAB PO SCH (09:44)
[2018-07-08] MEDS: hydroCHLOROthiazide 12.5 MG CAPSULE PO SCH (09:44)
--- NOTE | 2018-07-08 12:39 | IPNPDOC ---
Subjective Date Seen The patient was seen on 07/08/18. Subjective Chief Complaint/HPI Patient offers no new complaints at the present time. Awaiting echocardiogram General: Reports: Normal Appetite; Denies: Chills, Night Sweats, Fatigue, Malaise Constitutional: Denies: Chills, Fever, Night Sweats Eyes: Denies: Pain, Vision change ENT: Denies: Head Aches, Ear Pain, Dysphagia Skin: Denies: Rash, Lesions, Breakdown Pulmonary: Denies: Dyspnea, Cough Cardiovascular: Denies: Chest Pain, Palpitations, Orthopnea, Paroxysmal Noc. Dyspnea, Lt Headedness Gastrointestinal: Denies: Nausea, Vomiting, Abdominal Pain, Diarrhea, Constipation Genitourinary: Denies: Dysuria, Frequency, Incontinence, Retention Hematologic: Denies: Bruising, Bleeding Excessively Musculoskeletal: Denies: Neck Pain, Back Pain, Joint Pain, Muscle Pain, Spasms Neurological: Denies: Weakness, Numbness, Change in speech, Confusion Psych: Reports: Mood Normal; Denies: Depression, Memory Issues Objective Physical Examination General Exam: Positive: Alert, Cooperative Eye Exam: Positive: PERRLA, Conjunctiva & lids normal, EOMI; Negative: Sclera icteric ENT Exam: Positive: Atraumatic, Mucous membr. moist/pink, Pharynx Normal Neck Exam: Positive: Supple; Negative: JVD, thyromegaly Chest Exam: Positive: Clear to auscultation, Normal air movement Heart Exam: Positive: Rate Normal, Regular Rhythm, Normal S1, Normal S2; Negative: Murmurs, Rubs Telemetry: Positive: No significant arrhythmia Abdomen Exam: Positive: Normal bowel sounds, Soft; Negative: Tenderness, Hepatospenomegaly Male Exam: Positive: Normal Genital Exam Extremity Exam: Positive: Normal pulses; Negative: Clubbing, Cyanosis, Edema Skin Exam: Positive: Nl turgor and temperature; Negative: Rash, Breakdown Neuro Exam: Positive: Normal Gait, Normal Speech, Cranial Nerves 3-12 NL, Reflexes 2+ Psych Exam: Positive: Mental status NL, Mood NL, Oriented x 3 Assessment /Plan Problems (1) Episode of syncope Status: Acute Response to Treatment: Stable Problem Text: Possible syncope versus breakthrough seizure She was completely asymptomatic at the present time Awaiting echocardiogram, to be done in the morning We'll also order MRI of brain without contrast to rule out any neurological pathology; could not be done as patient has a regular stimulator in the chest Continue Depakote and Lamictal Seizure precautions Close monitoring Orthostatic blood pressures are essentially within normal limits. Patient probably can be discharged home after the echocardiogram. If it's normal (2) Seizure Status: Acute Response to Treatment: Stable Problem Text: As above Plan/VTE VTE Prophylaxis Ordered?: Yes VS, I&O, 24H, Fishbone Vital Signs/I&O Vital Signs Date Time Temp Pulse Resp B/P (MAP) Pulse Ox O2 Delivery O2 Flow Rate FiO2 07/08/18 09:44 67 154/70 07/08/18 06:00 98.3 16 94 07/06/18 22:33 Room Air I&O- Last 24 Hours up to 6 AM 07/08/18 06:00 Intake Total 1400 ml Output Total 1200 ml Balance 200 ml Laboratory Data 24H LABS Laboratory Tests 2 07/07/18 16:41: Bedside Glucose (Misc Panel) 182H 07/07/18 20:13: Bedside Glucose (Misc Panel) 186H 07/08/18 05:51: Bedside Glucose (Misc Panel) 140H BARBARA CASTANEDA MD Jul 08, 2018 12:39
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
[2018-07-08 14:00] VITALS: BP 154/70
== END 2018-07-08 14:37 | disposition home or self-care (01) ==
LOC: M ED 16:48 → EDBD 16:48 → M ED INP 21:27 → M MSPAV 23:00
PROVIDERS: ADMIT Internal Medicine Nephrology; ATTEND Internal Medicine
DX: R55 Syncope and collapse (principal); G40.919 Epilepsy, unspecified, intractable, without status epilepticus; I10 Essential (primary) hypertension; E78.5 Hyperlipidemia, unspecified; E11.40 Type 2 diabetes mellitus with diabetic neuropathy, unspecified; R26.81 Unsteadiness on feet; F32.9 Major depressive disorder, single episode, unspecified; Z79.82 Long term (current) use of aspirin; Z79.84 Long term (current) use of oral hypoglycemic drugs; Z79.899 Other long term (current) drug therapy; Z97.8 Presence of other specified devices
CPT/HCPCS: 36415; 70450; 71260; 72125; 74177; 80048; 80164; 82550; 82553; 83735; 84146; 84439; 84443; 84484; 85025; 85610; 85730; 93005; 93041; 93306; 94760; 96372; 99285; Q9967

== ENCOUNTER 2019-01-08 12:46 | Emergency (ER) | payer MEDICARE, OTHER ==
[~2019-01-08] VITALS: Ht 175.3 cm; Wt 84.5 kg
[~2019-01-08 12:46] MED LIST changes: +B COTAB3 PO; +LISI40TA PO; +MOBI4TAB PO
[2019-01-08 13:22] LABS: BASO % 0.3 % (0.0-1.0); EOS % 0.3 % (0.0-3.0); HEMATOCRIT 32.6 % (42.0-52.0); HEMOGLOBIN 11.4 g/dl (13.5-17.5); LYMPH % 31.9 % (24.0-44.0); MEAN CORPUSCULAR VOLUME 94.5 fl (80.0-96.0); MONO # 0.7 10^3/uL (0.0-0.8); MONO % 11.5 % (0.0-5.0); NEUTROPHILS # 3.5 10^3/uL (1.5-8.5); NEUTROPHILS % 55.8 % (36.0-66.0); PLATELET COUNT, AUTOMATED 231 10^3/uL (150-450); RED BLOOD COUNT 3.45 10^6/uL (4.30-6.10); WHITE BLOOD COUNT 6.3 10^3/uL (4.0-10.0)
[2019-01-08 13:50] LABS: CALCIUM LEVEL 9.5 MG/DL (8.8-10.2); CREATININE FOR GFR 1.3 MG/DL (0.70-1.30); GLOMERULAR FILTRATION RATE 57.9 (>42); POTASSIUM SERUM 4.6 MEQ/L (3.5-5.1); THYROID STIMULATING HORMONE 1.72 uIU/ML (0.358-3.740)
[2019-01-08] MEDS ORDERED: NS 1,000 ML IV ONE (14:15)
--- NOTE | 2019-01-08 14:37 | REP ---
CT brain: 01/08/2019. Indication: Seizure. Comparison: 07/06/2018. Technique: Unenhanced axial images of the brain were obtained from skull base to vertex. Findings: There is no intracranial hemorrhage, acute cortical infarction, mass effect or hydrocephalous. Diffuse volume loss is present. Patchy areas of white matter hypoattenuation are present most consistent with chronic small vessel disease. Intracranial atherosclerotic disease is present. Impression: No acute intracranial process. Volume loss and sequelae of chronic microangiopathic ischemic disease. Electronically Signed by Luisito Judge DO 01/08/2019 02:28 P
[2019-01-08 14:47] LABS: MAGNESIUM LEVEL 1.8 MG/DL (1.8-2.4); VALPROIC ACID (DEPAKOTE) 56.4 UG/ML (50.0-100.0)
[2019-01-08 15:16] VITALS: BP 125/86
[2019-01-08] MEDS ORDERED: DEPA1TAB3 PO (15:50)
--- NOTE | 2019-01-08 21:30 | ECGEPIP ---
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
== END 2019-01-08 15:25 | disposition home or self-care (01) ==
LOC: EDBD 12:46 → EDSEX 12:46 → M ED 12:46
DX: G40.309 Generalized idiopathic epilepsy and epileptic syndromes, not intractable, without status epilepticus (principal); I10 Essential (primary) hypertension; Z79.82 Long term (current) use of aspirin; Z79.899 Other long term (current) drug therapy

== ENCOUNTER 2019-06-12 10:01 | Day surgery (SDC) | payer OTHER ==
[~2019-06-12] VITALS: Ht 177.8 cm; Wt 80.6 kg
[~2019-06-12 10:01] MED LIST changes: +DEPA1TAB3 PO; +EQL50TAB2 PO; -LAMO200T2 PO; +LAMO200T3 PO; +NS 1,000 ML IV ONE; +VITA50005 PO; +propofoL 200 MG/20 ML VIAL As Ordered ONE
[2019-06-12] MEDS ORDERED: LIDOCAINE 2% INJ 100 MG/5 ML SDV (FOR ANES.) As Ordered ONE (11:09)
--- NOTE | 2019-06-12 11:49 | ROOR ---
Patient Name: Armando Valle Procedure Date: 06/12/2019 11:28 AM Date of : 1945 Age: 74 Room: [facility] Gender: Male Note Status: Finalized Procedure: Colonoscopy Indications: High risk colon cancer surveillance: Personal history of colonic polyps Providers: DO Shelbi Quezada MD: Leilani Brantley Requesting Provider: Medicines: Propofol per Anesthesia Complications: No immediate complications. Procedure: Pre-Anesthesia Assessment: - Prior to the procedure, a History and Physical was performed, and patient medications and allergies were reviewed. The patient is competent. The risks and benefits of the procedure and the sedation options and risks were discussed with the patient. All questions were answered and informed consent was obtained. Patient identification and proposed procedure were verified by the physician, the nurse, the anesthesiologist and the oil change technician in the endoscopy suite. Mental Status Examination: alert and oriented. Airway Examination: normal oropharyngeal airway and neck mobility. Respiratory Examination: clear to auscultation. CV Examination: normal. Prophylactic Antibiotics: The patient does not require prophylactic antibiotics. Prior Anticoagulants: The patient has taken no previous anticoagulant or antiplatelet agents. ASA Grade Assessment: III - A patient with severe systemic disease. After reviewing the risks and benefits, the patient was deemed in satisfactory condition to undergo the procedure. The anesthesia plan was to use monitored anesthesia care (MAC). Immediately prior to administration of medications, the patient was re-assessed for adequacy to receive sedatives. The heart rate, respiratory rate, oxygen saturations, blood pressure, adequacy of pulmonary ventilation, and response to care were monitored throughout the procedure. The physical status of the patient was re-assessed after the procedure. The Colonoscope was introduced through the anus and advanced to the cecum, identified by appendiceal orifice and ileocecal valve. The colonoscopy was performed without difficulty. The patient tolerated the procedure well. Findings: A few small-mouthed diverticula were found in the sigmoid colon. The exam was otherwise without abnormality on direct and retroflexion views. Impression: - Diverticulosis in the sigmoid colon. - The examination was otherwise normal on direct and retroflexion views. - No specimens collected. Recommendation: - Patient has a contact number available for emergencies. The signs and symptoms of potential delayed complications were discussed with the patient. Return to normal activities tomorrow. Written discharge instructions were provided to the patient. - Repeat colonoscopy in 5-10 years for screening purposes. - Return to my office PRN. Mir Serra DO 06/12/2019 11:49:27 AM Electronically signed by Mir Serra DO Number of Addenda: 0 Note Initiated On: 06/12/2019 11:28 AM Estimated Blood Loss: Estimated blood loss: none.
[2019-06-12 12:20] VITALS: BP 144/98
== END 2019-06-12 12:23 | disposition home or self-care (01) ==
LOC: M OPP 10:01
PROVIDERS: ATTEND Surgery
DX: Z12.11 Encounter for screening for malignant neoplasm of colon (principal); Z86.010 Personal history of colon polyps; K57.30 Diverticulosis of large intestine without perforation or abscess without bleeding; R56.9 Unspecified convulsions; E11.9 Type 2 diabetes mellitus without complications; Z79.82 Long term (current) use of aspirin; Z79.84 Long term (current) use of oral hypoglycemic drugs; Z79.899 Other long term (current) drug therapy; Z96.82 Presence of neurostimulator

== ENCOUNTER 2019-12-19 14:45 | Emergency (ER) | payer MEDICARE, OTHER ==
[~2019-12-19] VITALS: Ht 177.8 cm; Wt 81.8 kg
[~2019-12-19 14:45] MED LIST changes: -METF-699 PO; +METF-817 PO; -NS 1,000 ML IV ONE; -propofoL 200 MG/20 ML VIAL As Ordered ONE
[2019-12-19 15:25] LABS: VENOUS BASE EXCESS -2.3 (-2.0-2.0); VENOUS HCO3 23.9 MEQ/L (23.0-27.0); VENOUS O2 SATURATION 76.3 % (60.0-80.0); VENOUS PARTIAL PRESSURE CO2 46.8 mmHg (38.0-50.0); VENOUS PARTIAL PRESSURE O2 45.8 mmHg (30.0-50.0); VENOUS PH 7.326 UNITS (7.330-7.430); VENOUS STANDARD HCO3 22.2 MEQ/L; VENOUS TOTAL CO2 25.3 MEQ/L (24.0-28.0)
--- NOTE | 2019-12-19 15:26 | REPVR ---
PROCEDURE INFORMATION: Exam: CT Cervical Spine Without Contrast Exam date and time: 12/19/2019 3:02 PM Age: 74 years old Clinical indication: Injury or trauma; Fall; Initial encounter; Blunt trauma TECHNIQUE: Imaging protocol: Computed tomography images of the cervical spine without contrast. Radiation optimization: All CT scans at this facility use at least one of these dose optimization techniques: automated exposure control; mA and/or kV adjustment per patient size (includes targeted exams where dose is matched to clinical indication); or iterative reconstruction. COMPARISON: CT Spine,cervical w/o contrast 07/06/2018 7:00 PM FINDINGS: Vertebrae: Bone mineralization is decreased, suggestive of osteopenia. No acute fracture is identified. There is a small superior endplate compression fracture at T1. Minimal T1 vertebral body height loss is present. Discs/Spinal canal/Neural foramina: Moderate degenerative changes of the cervical spine are present. There is no severe spinal canal stenosis. Multilevel neural foraminal narrowing from uncinate spurring and facet arthropathy is noted. Soft tissues: Unremarkable. Lungs: Lung apices are normal. Vasculature: Atherosclerotic calcifications are present at the carotid bifurcations. IMPRESSION: 1. No acute abnormality. 2. Chronic findings as discussed above. Electronically signed by: Jose Casas On 12/19/2019 15:26:03 PM
[2019-12-19 15:27] LABS: BASO % 0.3 % (0.0-1.0); EOS # 0.1 10^3/uL (0.0-0.5); EOS % 0.8 % (0.0-3.0); HEMATOCRIT 31.7 % (42.0-52.0); HEMOGLOBIN 10.8 g/dl (13.5-17.5); LYMPH # 1.9 10^3/uL (1.5-5.0); LYMPH % 31.1 % (24.0-44.0); MEAN CORPUSCULAR HEMOGLOBIN 31.6 pg (27.0-33.0); MEAN CORPUSCULAR HGB CONC 34.1 g/dl (32.0-36.5); MEAN CORPUSCULAR VOLUME 92.7 fl (80.0-96.0); MONO # 0.7 10^3/uL (0.0-0.8); MONO % 10.8 % (0.0-5.0); NEUTROPHILS # 3.4 10^3/uL (1.5-8.5); NEUTROPHILS % 56.7 % (36.0-66.0); PLATELET COUNT, AUTOMATED 258 10^3/uL (150-450); RED BLOOD COUNT 3.42 10^6/uL (4.30-6.10)
--- NOTE | 2019-12-19 15:29 | REPVR ---
PROCEDURE INFORMATION: Exam: CT Head Without Contrast Exam date and time: 12/19/2019 3:02 PM Age: 74 years old Clinical indication: Injury or trauma; Fall; Initial encounter; Blunt trauma (contusions or hematomas); Consciousness not specified TECHNIQUE: Imaging protocol: Computed tomography of the head without contrast. Radiation optimization: All CT scans at this facility use at least one of these dose optimization techniques: automated exposure control; mA and/or kV adjustment per patient size (includes targeted exams where dose is matched to clinical indication); or iterative reconstruction. COMPARISON: CT Head without contrast 01/08/2019 2:08 PM FINDINGS: Brain: There is no acute intracranial hemorrhage, cerebral edema, or midline shift. Chronic microvascular ischemic changes are seen in the periventricular white matter. Age-related cerebral and cerebellar volume loss is present. Cerebral ventricles: Mild ex vacuo dilation of the lateral and third ventricles is noted. Bones/joints: No acute fracture. Paranasal sinuses: There is no acute sinusitis. Mastoid air cells: The mastoid air cells are clear. Orbits: The included orbital structures are unremarkable. Vasculature: Atherosclerotic calcifications are seen involving the cavernous carotid arteries. Soft tissues: A probable small midline forehead laceration is noted. IMPRESSION: 1. No acute intracranial abnormality. 2. Atrophy and chronic deep white matter ischemic changes. Electronically signed by: Jose Casas On 12/19/2019 15:28:50 PM
[2019-12-19 15:39] LABS: INR 0.97; PROTHROMBIN TIME 13.1 SECONDS (12.5-14.3)
--- NOTE | 2019-12-19 15:44 | REPVR ---
PROCEDURE INFORMATION: Exam: XR Chest, 1 View Exam date and time: 12/19/2019 2:48 PM Age: 74 years old Clinical indication: Other: Syncope; Additional info: Syncope/near-syncope TECHNIQUE: Imaging protocol: XR of the chest Views: Frontal portable sitting upright view of the chest. COMPARISON: No relevant prior studies available. FINDINGS: Tubes, catheters and devices: Left cervical neural stimulator power pack. EKG leads are present overlying the chest. Lungs: The lungs are clear bilaterally. The pulmonary vasculature is normal. Pleural space: No pleural effusion. No pneumothorax. Heart/Mediastinum: The heart is normal in size and contour. Bones/joints: Right lateral vertebral body marginal osteophytes are noted at multiple thoracic spinal levels. IMPRESSION: No acute cardiopulmonary abnormality identified. Electronically signed by: Gurvinder Hutson On 12/19/2019 15:44:21 PM
[2019-12-19 16:09] LABS: FREE T4 1.01 NG/DL (0.76-1.46); MAGNESIUM LEVEL 1.8 MG/DL (1.8-2.4); THYROID STIMULATING HORMONE 1.29 uIU/ML (0.358-3.740); VALPROIC ACID (DEPAKOTE) 70.6 UG/ML (50.0-100.0)
--- NOTE | 2019-12-19 16:24 | REPVR ---
PROCEDURE INFORMATION: Exam: XR Left Shoulder Exam date and time: 12/19/2019 3:31 PM Age: 74 years old Clinical indication: Pain; Shoulder; Left; Additional info: Fall TECHNIQUE: Imaging protocol: XR Left shoulder. Views: AP internal and external rotation views, and a scapular Y view of the left shoulder. COMPARISON: No relevant prior studies available. FINDINGS: Bones/joints: Superolateral humeral head small articular marginal osteophyte. No acute bony abnormality identified. Soft tissues: Normal. IMPRESSION: No acute bony injury identified. Electronically signed by: Gurvinder Hutson On 12/19/2019 16:24:24 PM
--- NOTE | 2019-12-19 16:24 | REPVR ---
PROCEDURE INFORMATION: Exam: XR Left Hip with Pelvis Exam date and time: 12/19/2019 3:31 PM Age: 74 years old Clinical indication: Other: Syncope; Additional info: Fall TECHNIQUE: Imaging protocol: XR Left hip with pelvis Views: Three views of the left hip, including AP pelvis. COMPARISON: CT ABD/PEL W/IV CONTRAST ONLY 07/06/2018 7:05 PM FINDINGS: Bones/joints: No acute bony abnormality identified. Iliopsoas tendon enthesis of the proximal femoral lesser trochanter. Right L4-L5 severe degenerative disc narrowing. Soft tissues: Unremarkable. IMPRESSION: No acute bony injury identified. Electronically signed by: Gurvinder Hutson On 12/19/2019 16:23:40 PM
[2019-12-19] MEDS ORDERED: LIDOCAINE W/EPINEPHRINE 1% 20ML VIAL SC ONE (19:45)
[2019-12-19] MEDS ORDERED: BOOSTRIX/ADACEL VACCINE (DIPHTH/PERTUSS/ACELL/TETANUS) 0.5ML SYR IM ONE (19:45)
[2019-12-19 20:40] VITALS: BP 165/75
--- NOTE | 2019-12-19 20:57 | ECGEPIP ---
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
== END 2019-12-19 20:57 | disposition home or self-care (01) ==
LOC: EDBD 14:45 → M ED 14:45
DX: S01.22XA Laceration with foreign body of nose, initial encounter (principal); S01.112A Laceration without foreign body of left eyelid and periocular area, initial encounter; W01.0XXA Fall on same level from slipping, tripping and stumbling without subsequent striking against object, initial encounter; R56.9 Unspecified convulsions; Y92.009 Unspecified place in unspecified non-institutional (private) residence as the place of occurrence of the external cause; Y93.9 Activity, unspecified; Y99.9 Unspecified external cause status; E11.9 Type 2 diabetes mellitus without complications; E78.5 Hyperlipidemia, unspecified; I10 Essential (primary) hypertension

== ENCOUNTER 2019-12-24 11:37 | Emergency (ER) | payer MEDICARE, OTHER ==
[~2019-12-24] VITALS: Ht 177.8 cm; Wt 78.8 kg
[2019-12-24 11:38] VITALS: BP 156/69
== END 2019-12-24 12:49 | disposition home or self-care (01) ==
LOC: M ED 11:37
DX: Z48.02 Encounter for removal of sutures (principal); E11.9 Type 2 diabetes mellitus without complications; I10 Essential (primary) hypertension; G40.909 Epilepsy, unspecified, not intractable, without status epilepticus; Z79.82 Long term (current) use of aspirin; Z79.899 Other long term (current) drug therapy

== ENCOUNTER 2020-05-26 11:56 | Observation (INO) | payer OTHER ==
[~2020-05-26] VITALS: Ht 177.8 cm; Wt 81.0 kg
[~2020-05-26 11:56] MED LIST changes: -LISI40TA PO; +LISI40TA4 PO
[2020-05-26 12:59] LABS: BASO % 0.4 % (0.0-1.0); EOS % 0.5 % (0.0-3.0); HEMATOCRIT 30.6 % (42.0-52.0); HEMOGLOBIN 10.4 g/dl (13.5-17.5); LYMPH # 1.7 10^3/uL (1.5-5.0); LYMPH % 30.6 % (24.0-44.0); MEAN CORPUSCULAR HEMOGLOBIN 30.5 pg (27.0-33.0); MEAN CORPUSCULAR VOLUME 89.7 fl (80.0-96.0); MONO # 0.7 10^3/uL (0.0-0.8); MONO % 12.2 % (2.0-8.0); NEUTROPHILS # 3.1 10^3/uL (1.5-8.5); NEUTROPHILS % 55.9 % (36.0-66.0); PLATELET COUNT, AUTOMATED 293 10^3/uL (150-450); RED BLOOD COUNT 3.41 10^6/uL (4.30-6.10); WHITE BLOOD COUNT 5.6 10^3/uL (4.0-10.0)
--- NOTE | 2020-05-26 13:04 | REP ---
INDICATION: Syncope COMPARISON: 12/19/2019 TECHNIQUE: Axial noncontrast images from the skull base to the thoracic inlet with coronal reformations. This CT examination was performed using the following dose reduction techniques: Automated exposure control, adjustment of mA and/or kv according to the patient's size, and use of iterative reconstruction technique. FINDINGS: Age-related atrophy and microvascular ischemic changes are appreciated. The ventricles and sulci are symmetric. Wood-white differentiation is maintained. There is no evidence for acute intracranial hemorrhage, mass/mass effect, pathology or infarction. No extra-axial fluid collection. Calvarium is intact. Paranasal sinuses and mastoid air cells are clear. IMPRESSION: Age related atrophy and microvascular ischemic changes. No acute intracranial hemorrhage, infarction, or mass/mass effect. <Electronically signed by Kwadwo Krishnamurthy > 05/26/20 1300
--- NOTE | 2020-05-26 13:04 | REP ---
INDICATION: Syncope/near-syncope COMPARISON: 12/19/2019 TECHNIQUE: Portable AP view of the chest FINDINGS: The mediastinum and cardiac silhouette are stable and within normal limits for portable technique. The lung wesley are clear without acute consolidation, effusion, or pneumothorax. Skeletal structures are intact. IMPRESSION: No acute cardiopulmonary process appreciated. <Electronically signed by Kwadwo Krishnamurthy > 05/26/20 0663
--- NOTE | 2020-05-26 13:07 | REP ---
INDICATION: Syncope COMPARISON: 12/19/2019 TECHNIQUE: Axial noncontrast images from the skull base to the thoracic inlet with coronal and sagittal re-formations This CT examination was performed using the following dose reduction techniques: Automated exposure control, adjustment of mA and/or kv according to the patient's size, and use of iterative reconstruction technique. FINDINGS: Straightening of normal lordosis is nonspecific. Moderate to advanced multilevel degenerative changes include endplate sclerosis, osteophytosis, disc space narrowing and facet arthropathy. Findings are most pronounced at C5-6 and C6-7. No obvious acute fracture/compression injury or subluxation. Posterior elements and spinous processes are intact. Spinal canal is grossly patent. Paravertebral soft tissues are normal. IMPRESSION: Moderate to advanced multilevel degenerative spondylosis. No acute fracture/compression injury or subluxation. <Electronically signed by Kwadwo Krishnamurthy > 05/26/20 [id number]
[2020-05-26 13:12] LABS: INR 1.01; PROTHROMBIN TIME 13.5 SECONDS (12.5-14.3)
[2020-05-26 13:13] LABS: PARTIAL THROMBOPLASTIN TIME 27.5 SECONDS (24.2-38.5)
[2020-05-26 13:20] LABS: BLOOD UREA NITROGEN 15 MG/DL (7-18); CALCIUM LEVEL 9.4 MG/DL (8.8-10.2); CARBON DIOXIDE LEVEL 29 MEQ/L (21-32); CHLORIDE LEVEL 92 MEQ/L (98-107); CK-MB VALUE MASS 3.1 NG/ML (<3.6); CPK CREATINE PHOSPHOKINASE 116 U/L (39-308); CREATININE FOR GFR 1.06 MG/DL (0.70-1.30); FREE T4 0.88 NG/DL (0.76-1.46); GLOMERULAR FILTRATION RATE > 60.0 (>42); GLUCOSE, FASTING 122 MG/DL (70-100); MAGNESIUM LEVEL 1.7 MG/DL (1.8-2.4); MB/CK RELATIVE INDEX 2.67 (< OR =4); POTASSIUM SERUM 4.7 MEQ/L (3.5-5.1); SODIUM LEVEL 128 MEQ/L (136-145); TROPONIN I < 0.02 NG/ML (< 0.10); VALPROIC ACID (DEPAKOTE) 71.4 UG/ML (50.0-100.0)
[2020-05-26] MEDS ORDERED: MECLIZINE 25 MG TABLET PO ONE (13:30)
[2020-05-26] MEDS ORDERED: MELA3TAB30 PO (14:09)
[2020-05-26] MEDS ORDERED: LAMO150T3 PO (14:09)
[2020-05-26] MEDS ORDERED: ZOLO100T PO (14:09)
[2020-05-26] MEDS ORDERED: MM S100C PO (14:09)
[2020-05-26] MEDS ORDERED: ACET500T15 PO (14:09)
[2020-05-26] MEDS ORDERED: AMLO1TAB25 PO (14:09)
[2020-05-26] MEDS ORDERED: ATOR80TA59 PO (14:09)
[2020-05-26] MEDS ORDERED: METF-838 PO (14:09)
[2020-05-26] MEDS ORDERED: DICL1GEL3 TOP (14:09)
[2020-05-26] MEDS ORDERED: CALC500T44 PO (14:09)
[2020-05-26] MEDS ORDERED: OMEP-218 PO (14:09)
[2020-05-26 15:04] LABS: RSV AMPLIFICATION NEGATIVE (NEGATIVE)
[2020-05-26] MEDS ORDERED: ACETAMINOPHEN TAB 650MG DOSE (2X325MG) PO PRN (15:15)
[2020-05-26] MEDS ORDERED: MOM 30ML SUSPENSION UDC PO PRN (15:15)
[2020-05-26] MEDS ORDERED: MAALOX 30 ML SUSP *UDC PO PRN (15:15)
[2020-05-26] MEDS ORDERED: DEXTROSE 50% 50 ML SYRINGE IV PRN (15:20)
[2020-05-26] MEDS ORDERED: GLUCAGON INJ 1MG VIAL SC PRN (15:20)
[2020-05-26] MEDS ORDERED: GLUCOSE 4GM CHEW TABLET PO PRN (15:20)
[2020-05-26] MEDS ORDERED: POLYVINYL ALCOHOL OPHTH SOLN 15 ML(LIQUITEARS) OD PRN (15:20)
[2020-05-26] MEDS ORDERED: ACETAMINOPHEN 500 MG TAB PO PRN (16:25)
[2020-05-26] MEDS ORDERED: MELOXICAM (MOBIC) 7.5 MG TAB PO PRN (16:25)
[2020-05-26] MEDS ORDERED: NITROGLYCERIN 0.4 MG SUBL TABLET SL PRN (16:25)
[2020-05-26 16:35] VITALS: BP 150/72
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
[2020-05-26] MEDS ORDERED: PILL CUTTER 1 EACH XX PRN (16:45)
[2020-05-26] MEDS: HumaLOG INSULIN (NovoLOG) PER UNIT SC SCH ×2 (17:02→21:00)
[2020-05-26 17:13] LABS: HEMOGLOBIN A1c 6.3 %
[2020-05-26] MEDS: MAG SULF 1GM/100ML (MAG RUN) 1 GM in IV 1 EA IV SCH ×2 (20:05→21:43)
[2020-05-26] MEDS: HEPARIN SOD (PORCINE) 5000UNITS/ML 1ML VIAL/SYRINGE SC SCH (20:05)
[2020-05-26] MEDS: ATORVASTATIN 20 MG TAB PO SCH (20:06)
[2020-05-26] MEDS: OMEPRAZOLE 20 MG CAP PO SCH (20:06)
[2020-05-26] MEDS: lamoTRIgine 100MG TAB PO SCH (20:06)
[2020-05-26] MEDS: DIVALPROEX 500MG *ER* TAB PO SCH (20:06)
[2020-05-26] MEDS: CALCIUM/VITAMIN D 500 MG TAB PO SCH (20:06)
[2020-05-26] MEDS: DOCUSATE SODIUM 100MG CAPSULE PO SCH (20:07)
[2020-05-26] MEDS ORDERED: DOCUSATE SODIUM 100MG CAPSULE PO SCH (21:00)
[2020-05-26 22:00] VITALS: BP_SYST 135; BP_SYST 194; BP_DIAS 60; BP_DIAS 90
[2020-05-27 06:00] VITALS: BP 144/66
[2020-05-27 06:16] LABS: BASO % 0.2 % (0.0-1.0); EOS # 0.1 10^3/uL (0.0-0.5); EOS % 0.9 % (0.0-3.0); HEMOGLOBIN 10.3 g/dl (13.5-17.5); LYMPH # 2.5 10^3/uL (1.5-5.0); LYMPH % 38.7 % (24.0-44.0); MEAN CORPUSCULAR HEMOGLOBIN 30.5 pg (27.0-33.0); MEAN CORPUSCULAR HGB CONC 34.3 g/dl (32.0-36.5); MEAN CORPUSCULAR VOLUME 88.8 fl (80.0-96.0); MONO # 0.7 10^3/uL (0.0-0.8); MONO % 11.3 % (2.0-8.0); NEUTROPHILS # 3.1 10^3/uL (1.5-8.5); NEUTROPHILS % 48.4 % (36.0-66.0); PLATELET COUNT, AUTOMATED 304 10^3/uL (150-450); RED BLOOD COUNT 3.38 10^6/uL (4.30-6.10); WHITE BLOOD COUNT 6.5 10^3/uL (4.0-10.0)
[2020-05-27 06:36] LABS: BLOOD UREA NITROGEN 13 MG/DL (7-18); CARBON DIOXIDE LEVEL 30 MEQ/L (21-32); CHLORIDE LEVEL 91 MEQ/L (98-107); CREATININE FOR GFR 0.94 MG/DL (0.70-1.30); GLOMERULAR FILTRATION RATE > 60.0 (>42); GLUCOSE, FASTING 99 MG/DL (70-100); MAGNESIUM LEVEL 2.2 MG/DL (1.8-2.4); POTASSIUM SERUM 4.6 MEQ/L (3.5-5.1); SODIUM LEVEL 128 MEQ/L (136-145)
[2020-05-27] MEDS: ASPIRIN 81 MG ENTERIC TAB PO SCH (08:31)
[2020-05-27] MEDS: DIVALPROEX 500MG *ER* TAB PO SCH ×2 (08:31→20:22)
[2020-05-27] MEDS: OMEPRAZOLE 20 MG CAP PO SCH ×2 (08:32→20:21)
[2020-05-27] MEDS: CALCIUM/VITAMIN D 500 MG TAB PO SCH ×2 (08:32→20:21)
[2020-05-27] MEDS: lamoTRIgine 100MG TAB PO SCH ×2 (08:32→20:21)
[2020-05-27] MEDS: DOCUSATE SODIUM 100MG CAPSULE PO SCH ×2 (08:32→20:21)
[2020-05-27] MEDS: SERTRALINE HCL 50 MG TAB PO SCH (08:32)
[2020-05-27] MEDS: HEPARIN SOD (PORCINE) 5000UNITS/ML 1ML VIAL/SYRINGE SC SCH ×2 (08:33→20:21)
[2020-05-27] MEDS: HumaLOG INSULIN (NovoLOG) PER UNIT SC SCH ×4 (08:33→21:00)
[2020-05-27] MEDS ORDERED: TOBRAMYCIN 0.3% OPHTH OINT 3.5 GM OD SCH (09:00)
--- NOTE | 2020-05-27 10:26 | ECHO ---
DATE OF PROCEDURE: 05/26/2020 Age: 75 Gender: Male Height: 178 cm Weight: 86 kg REFERRING PHYSICIAN: Dr. Shantanu Forrest. INDICATION: Syncope. MEASUREMENTS: 2D Measurements: Left atrium 4.5 cm Intraventricular septum 1.22 cm Posterior wall 1.16 cm Left ventricle diastole 4.1 cm Aortic root 3.6 cm Aortic annulus 2.0 cm Inferior vena cava 1.4 cm Doppler Measurements: Mild aortic regurgitation Mild aortic stenosis Aortic valve velocity 247 cm/s Aortic valve VTI 53.9 cm/s Peak aortic valve gradient 24 mmHg Mean aortic valve gradient 15 mmHg LVOT velocity 96.0 cm/s LVOT VTI 20.3 cm Aortic regurgitation pressure half-time 490 msec Very mild mitral regurgitation Mitral E velocity 80.6 cm/s Mitral A velocity 74.6 cm/s Mitral deceleration time 177 msec Trace tricuspid regurgitation No pulmonic regurgitation Pulmonary artery acceleration time 129 msec suggestive of normal PA systolic pressure MITRAL ANNULAR TISSUE DOPPLER E prime septal 5.9 cm/s, E prime lateral 8.3 cm/s DESCRIPTION: Rhythm was sinus bradycardia. Image quality was fair. Subcostal view was technically difficult. No pericardial effusion. This was a 2D, M-mode, color flow Doppler, and pulsed wave Doppler examination including mitral annular tissue Doppler. CONCLUSIONS: 1. Degenerative, calcific aortic valve disease with moderate focal thickening and focal calcific deposits of a 3-cusp aortic valve. Mild aortic stenosis and mild aortic regurgitation. 2. Borderline concentric left ventricular hypertrophy. Normal regional LV wall motion and wall thickening. Normal LV systolic function. LVEF 65% by visual estimate. Grade 2 LV diastolic dysfunction (pseudo-normal LV diastolic filling pattern). 3. Mild left atrial dilatation. 4. Mild mitral annular calcification. Very mild mitral regurgitation. 5. Otherwise normal overall echocardiogram Doppler findings. [facility]
[2020-05-27] MEDS: OFLOXACIN 0.3 % (OCUFLOX) OPTH SOL 5ML OD SCH ×4 (13:15→20:20)
--- NOTE | 2020-05-27 14:20 | ECGEPIP ---
[facility] - ED Test Date: 2020-05-26 Pat Name: RINA HELM Department: Room: Gender: Male Strategic Communications Manager: Yunior PORTILLO : 1945 Requested By: Zeyad Rivas Order Number: [id number] Reading MD: Chelsy Wills Measurements Intervals [place] Rate: 60 P: 28 WV: 204 QRS: -3 QRSD: 94 T: 89 QT: 382 QTc: 382 Interpretive Statements Normal sinus rhythm Nonspecific ST and T wave abnormality decreased rate 12/19/19 Electronically Signed on 05-27-2020 14:20:10 EST by Chelsy Wills
[2020-05-27 15:00] VITALS: BP 148/60
--- NOTE | 2020-05-27 15:37 | IPNPDOC ---
Date Seen The patient was seen on 05/27/20. Progress Note SUBJECTIVE: Patient seen and examined at bedside. Doing well. Noted right eye pruritus and discharge. Patient states that his right eye has been bothering him for the past 4 days. Has blurred vision in the right eye. Denies any chest pain, seizures of breath, nausea, vomiting, diarrhea, fevers or chills. OBJECTIVE PHYSICAL EXAMINATION: VITAL SIGNS: please see below General: NAD, comfortable HEENT: Right eye corneal abrasion Neck: supple, normal ROM, no JVD Respiratory: lungs CTAB, no wheeze, no rales, no crackles CVS: RRR, normal S1, S2, no murmurs Abdo: soft, no masses, no hepatosplenomegaly, BS+, no rebound tenderness Extremities: no edema, pulses 2+ MSK: no joint deformities, normal ROM Neuro: no focal neuro deficits, moving all 4 extremities, CN2-12 intact. Strength 5/5 in all 4 extremities. No nystagmus. Psych: calm, cooperative, AAO x 3 LABORATORY DATA, IMAGING STUDIES, MICROBIOLOGY: Please see below. Head CT05/26/20:Age related atrophy and microvascular ischemic changes. No acute intracranial hemorrhage, infarction, or mass/mass effect. Chest x-ray05/26/20: No acute cardiopulmonary process appreciated. Cervical Spine CT05/26/20: Moderate to advanced multilevel degenerative spondylosis. No acute fracture/compression injury or subluxation. Echocardiogram: 05/27/20: 1. Degenerative, calcific aortic valve disease with moderate focal thickening and focal calcific deposits of a 3-cusp aortic valve. Mild aortic stenosis and mild aortic regurgitation. 2. Borderline concentric left ventricular hypertrophy. Normal regional LV wall motion and wall thickening. Normal LV systolic function. LVEF 65% by visual estimate. Grade 2 LV diastolic dysfunction (pseudo-normal LV diastolic filling pattern). 3. Mild left atrial dilatation. 4. Mild mitral annular calcification. Very mild mitral regurgitation. 5. Otherwise normal overall echocardiogram Doppler findings. DVT prophylaxis ordered?: heparin ASSESSMENT AND PLAN: . PROBLEMS: #Syncope, likely 2/2 cardiovascular disease Keep on telemetry for 48 hours to rule out arrhythmias Echocardiogram ordered to rule out valvular disease or other cardiovascular pathology Patient has a history of aortic stenosis. EEG ordered. If abnormalities are found on EEG consultation for neurology will be placed. #Seizure disorder with vagal nerve stimulator in place Continue home medications: Depakote 500 mg by mouth twice a day Lamictal 150 mg by mouth twice a day #Hyponatremia likely 2/2 hydrochlorothiazide use Hold Hydrochlorothiazide at this time. Ordered BMP to monitor for electrolyte imbalances. Ordered urine osmolality, urine sodium, urine creatinine to understand prerenal, postrenal etiologies that may cause hyponatremia Serum osmolality ordered to understand patient's hyper- or hypo-osmolar state #Hypomagnesemia -replaced IV magnesium runs x 2 #NIDDMT2. Discontinued metformin. Ordered. Sliding scale insulin. #Hypertension Continue home medications: Lisinopril 20 mg every day. Amlodipine 10 mg daily. #Corneal abrasion. Ordered artificial tears at this time. Consult ophthalmology tomorrow a.m. #Depression Continue home medication, Zoloft 50 mg by mouth daily #GERD. Continue home medication, omeprazole 20 mg twice a day #Coronary artery disease. Continue home medications: Atorvastatin 40 mg daily at bedtime Aspirin 81 mg daily -Nitroglycerin Disposition: Expected length of stay less than 2 days, patient under observation VS, I&O, 24H, [facility] Vital Signs/I&O Vital Signs Date Time Temp Pulse Resp B/P (MAP) Pulse Ox O2 Delivery O2 Flow Rate FiO2 05/27/20 15:00 98.8 77 18 148/60 (89) 98 Room Air I&O- Last 24 Hours up to 6 AM 05/27/20 06:00 Intake Total 540 ml Output Total 250 ml Balance 290 ml Laboratory Data 24H LABS Laboratory Tests 2 05/26/20 15:56: Estimated Mean Plasma Glucose 134H, Hemoglobin A1c 6.3, Osmolality 267L 05/26/20 16:49: Bedside Glucose (Misc Panel) 89 05/26/20 21:33: Bedside Glucose (Misc Panel) 150H 05/27/20 05:20: Immature Granulocyte % (Auto) 0.5, Neutrophils (%) (Auto) 48.4, Lymphocytes (%) (Auto) 38.7, Monocytes (%) (Auto) 11.3H, Eosinophils (%) (Auto) 0.9, Basophils (%) (Auto) 0.2, Neutrophils # (Auto) 3.1, Lymphocytes # (Auto) 2.5, Monocytes # (Auto) 0.7, Eosinophils # (Auto) 0.1, Basophils # (Auto) 0.0, Nucleated Red Blood Cells % (auto) 0.0, Anion Gap 7L, Glomerular Filtration Rate > 60.0, Calcium Level 9.0, Magnesium Level 2.2 05/27/20 11:46: Bedside Glucose (Misc Panel) 118H CBC/BMP Laboratory Tests 05/27/20 05:20 RENNY MELCHOR MD May 27, 2020 15:37
[2020-05-27] MEDS: ATORVASTATIN 20 MG TAB PO SCH (20:21)
[2020-05-27] MEDS ORDERED: LACRILUBE (AKWA TEARS) OPHTH OINT 3.5 GM OD SCH (21:00)
[2020-05-27 22:00] VITALS: BP 151/69
[2020-05-28 06:00] VITALS: BP 146/68
[2020-05-28 06:21] LABS: BASO % 0.3 % (0.0-1.0); EOS # 0.1 10^3/uL (0.0-0.5); EOS % 0.8 % (0.0-3.0); HEMATOCRIT 30.1 % (42.0-52.0); HEMOGLOBIN 10.4 g/dl (13.5-17.5); LYMPH # 2.2 10^3/uL (1.5-5.0); LYMPH % 34.2 % (24.0-44.0); MEAN CORPUSCULAR HEMOGLOBIN 30.5 pg (27.0-33.0); MEAN CORPUSCULAR HGB CONC 34.6 g/dl (32.0-36.5); MEAN CORPUSCULAR VOLUME 88.3 fl (80.0-96.0); MONO # 0.9 10^3/uL (0.0-0.8); MONO % 13.3 % (2.0-8.0); NEUTROPHILS # 3.3 10^3/uL (1.5-8.5); NEUTROPHILS % 51.1 % (36.0-66.0); PLATELET COUNT, AUTOMATED 287 10^3/uL (150-450); RED BLOOD COUNT 3.41 10^6/uL (4.30-6.10); WHITE BLOOD COUNT 6.5 10^3/uL (4.0-10.0)
[2020-05-28 06:46] LABS: ALBUMIN 3.3 GM/DL (3.2-5.2); ALT/SGPT 20 U/L (12-78); BILIRUBIN,TOTAL 0.3 MG/DL (0.2-1.0); BLOOD UREA NITROGEN 13 MG/DL (7-18); CALCIUM LEVEL 9.7 MG/DL (8.8-10.2); CARBON DIOXIDE LEVEL 29 MEQ/L (21-32); CHLORIDE LEVEL 94 MEQ/L (98-107); CREATININE FOR GFR 1.09 MG/DL (0.70-1.30); GLOMERULAR FILTRATION RATE > 60.0 (>42); GLUCOSE, FASTING 119 MG/DL (70-100); MAGNESIUM LEVEL 1.8 MG/DL (1.8-2.4); POTASSIUM SERUM 5.2 MEQ/L (3.5-5.1); SODIUM LEVEL 128 MEQ/L (136-145); TOTAL PROTEIN 6.7 GM/DL (6.4-8.2)
[2020-05-28] MEDS: HumaLOG INSULIN (NovoLOG) PER UNIT SC SCH ×2 (07:30→12:00)
[2020-05-28] MEDS: DOCUSATE SODIUM 100MG CAPSULE PO SCH (08:00)
[2020-05-28] MEDS: OMEPRAZOLE 20 MG CAP PO SCH (08:00)
[2020-05-28] MEDS: ASPIRIN 81 MG ENTERIC TAB PO SCH (08:00)
[2020-05-28] MEDS: CALCIUM/VITAMIN D 500 MG TAB PO SCH (08:00)
[2020-05-28] MEDS: SERTRALINE HCL 50 MG TAB PO SCH (08:01)
[2020-05-28] MEDS: DIVALPROEX 500MG *ER* TAB PO SCH (08:01)
[2020-05-28] MEDS: lamoTRIgine 100MG TAB PO SCH (08:01)
[2020-05-28] MEDS: HEPARIN SOD (PORCINE) 5000UNITS/ML 1ML VIAL/SYRINGE SC SCH (08:02)
[2020-05-28] MEDS: OFLOXACIN 0.3 % (OCUFLOX) OPTH SOL 5ML OD SCH ×2 (08:02→13:41)
[2020-05-28 08:04] VITALS: BP 148/65
[2020-05-28 08:41] LABS: OSMOLALITY SERUM 275 MOSM/KG (280-301)
--- NOTE | 2020-05-28 10:24 | EEG ---
ELECTROENCEPHALOGRAM DATE: 05/27/2020 DIAGNOSIS: Seizure, syncope. EEG# [id number]. REFERRING PHYSICIAN: Aquilino Wood M.D. HISTORY: Patient is a 75-year-old man with history of seizures, aortic stenosis, hypertension, and diabetes who had an episode of loss of consciousness. This EEG was done to rule out epileptic potential. His blood pressure was 201/85. He is currently taking Meclizine, amlodipine, aspirin, atorvastatin, divalproex, lisinopril, lamotrigine. TECHNICAL DESCRIPTION: This digital EEG was recorded by 21-scalp, ear, and two EKG electrodes and was reviewed in bipolar and referential montages following reformatting in 10-20 international electrode placement system. INTERPRETATION: Patient was noted to be in awake and drowsy states during this EEG. Resting and awake background rhythm consisted of low voltage 9 Hz alpha activity measuring 10-20 microvolts in amplitude, which was symmetric and reactive to eye opening. Attenuation of posterior dominant rhythm was seen during transition into drowsiness. Anteriorly low voltage and mixed frequency activity was noted. No sleep was achieved. Hyperventilation was not performed. Photic stimulation remained unremarkable. EKG revealed normal sinus rhythm. No focal, lateralizing, or epileptiform abnormalities were seen. No relevant clinical activity was noted. CONCLUSION: This EEG in awake and drowsy states is within normal limits.
--- NOTE | 2020-05-28 11:24 | REP ---
INDICATION: syncope COMPARISON: None. TECHNIQUE: Wood scale and color Doppler evaluation using linear high frequency transducer Findings: FINDINGS: Two-dimensional wood scale and color images demonstrate moderate mixed atheromatous plaquing with normal maintained laminar flow and no obvious focal areas of stenosis or occlusion. Color Doppler interrogation demonstrates normal arterial wave patterns and velocities with no significant spectral broadening. Normal flow direction is appreciated in the bilateral vertebral arteries. ICA peak systolic velocity: Right 85.4 cm/s; Left 62.2 cm/s ICA diastolic velocity: Right 18.7 cm/s; Left 14.3 cm/s ECA peak systolic velocity: Right 82.0 cm/s; Left 78.5 cm/s CCA peak systolic velocity: Right 66.8 cm/s; Left 80.6 cm/s ICA/CCA ratio: Right 1.3 cm/s; Left 0.8 cm/s IMPRESSION: No hemodynamically significant areas of narrowing or stenosis appreciated. Based on set standards narrowing falls within the less than 50% range. <Electronically signed by Kwadwo Krishnamurthy > 05/28/20 0342
[2020-05-28] MEDS ORDERED: SODI1TAB12 PO (11:54)
[2020-05-28] MEDS ORDERED: OFLO3OPSO OD ×2 (11:54→13:45)
[2020-05-28] MEDS ORDERED: POLYOPD OD ×2 (11:54→13:45)
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
[2020-05-28 12:58] LABS: OSMOLALITY URINE 535 MOSM/KG (500-800)
[2020-05-28] MEDS ORDERED: PATIROMER SORBITEX CALCIUM 8.4 GM POWDER PACKET (VELTASSA) PO ONE (13:00)
[2020-05-28 13:30] LABS: SODIUM,RANDOM URINE 65 MEQ/L
[2020-05-28] MEDS ORDERED: SODIUM CHLORIDE 1 GM TAB PO SCH (14:00)
== END 2020-05-28 14:42 | disposition home or self-care (01) ==
LOC: M ED 11:56 → EDBD 11:56 → M ED INP 11:57 → M MSPAV 16:26
PROVIDERS: ADMIT Internal Medicine; ATTEND Family Medicine
DX: R55 Syncope and collapse (principal); Z86.69 Personal history of other diseases of the nervous system and sense organs; E87.1 Hypo-osmolality and hyponatremia; E83.42 Hypomagnesemia; E11.9 Type 2 diabetes mellitus without complications; I10 Essential (primary) hypertension; F32.9 Major depressive disorder, single episode, unspecified; K21.9 Gastro-esophageal reflux disease without esophagitis; I25.10 Atherosclerotic heart disease of native coronary artery without angina pectoris; E87.5 Hyperkalemia; I35.0 Nonrheumatic aortic (valve) stenosis; Z79.82 Long term (current) use of aspirin; Z79.84 Long term (current) use of oral hypoglycemic drugs; Z79.899 Other long term (current) drug therapy
CPT/HCPCS: 36415; 70450; 71045; 72125; 80048; 80053; 80164; 80175; 82550; 82553; 83036; 83735; 83930; 83935; 84300; 84439; 84443; 84484; 85025; 85610; 85730; 87631; 93005; 93041; 93306; 93880; 94760; 95819; 96360; 96361; 96372; 97161; 99285; G0378; J1644; J3475

== ENCOUNTER 2020-06-12 03:47 | Emergency (ER) | payer OTHER ==
[~2020-06-12] VITALS: Ht 177.8 cm; Wt 99.1 kg
[~2020-06-12 03:47] MED LIST changes: +ACET500T15 PO; +AMLO1TAB25 PO; +ATOR80TA59 PO; +CALC500T44 PO; +DICL1GEL3 TOP; +LAMO150T3 PO; +MELA3TAB30 PO; +METF-838 PO; +MM S100C PO; +OFLO3OPSO OD; +OMEP-218 PO; +POLYOPD OD; +SODI1TAB12 PO; +ZOLO100T PO
[2020-06-12 05:28] LABS: BASO % 0.3 % (0.0-1.0); EOS # 0.1 10^3/uL (0.0-0.5); EOS % 0.8 % (0.0-3.0); HEMATOCRIT 36.1 % (42.0-52.0); HEMOGLOBIN 12.4 g/dl (13.5-17.5); LYMPH # 1.5 10^3/uL (1.5-5.0); LYMPH % 22.6 % (24.0-44.0); MEAN CORPUSCULAR HEMOGLOBIN 30.8 pg (27.0-33.0); MEAN CORPUSCULAR HGB CONC 34.3 g/dl (32.0-36.5); MEAN CORPUSCULAR VOLUME 89.8 fl (80.0-96.0); MONO # 0.8 10^3/uL (0.0-0.8); MONO % 11.7 % (2.0-8.0); NEUTROPHILS # 4.2 10^3/uL (1.5-8.5); NEUTROPHILS % 64.3 % (36.0-66.0); PLATELET COUNT, AUTOMATED 352 10^3/uL (150-450); RED BLOOD COUNT 4.02 10^6/uL (4.30-6.10); WHITE BLOOD COUNT 6.5 10^3/uL (4.0-10.0)
[2020-06-12 06:03] LABS: ALBUMIN 4.1 GM/DL (3.2-5.2); ALT/SGPT 22 U/L (12-78); BILIRUBIN,DIRECT 0.1 MG/DL (0.0-0.2); BILIRUBIN,TOTAL 0.3 MG/DL (0.2-1.0); BLOOD UREA NITROGEN 17 MG/DL (7-18); CALCIUM LEVEL 9.8 MG/DL (8.8-10.2); CARBON DIOXIDE LEVEL 28 MEQ/L (21-32); CHLORIDE LEVEL 94 MEQ/L (98-107); CK-MB VALUE MASS 2.2 NG/ML (<3.6); CPK CREATINE PHOSPHOKINASE 121 U/L (39-308); CREATININE FOR GFR 1.07 MG/DL (0.70-1.30); GLOMERULAR FILTRATION RATE > 60.0 (>42); GLUCOSE, FASTING 147 MG/DL (70-100); MB/CK RELATIVE INDEX 1.82 (< OR =4); NT-PRO BNP 335 PG/ML (<125); POTASSIUM SERUM 4.5 MEQ/L (3.5-5.1); SODIUM LEVEL 130 MEQ/L (136-145); TOTAL PROTEIN 8.5 GM/DL (6.4-8.2); TROPONIN I < 0.02 NG/ML (< 0.10)
--- NOTE | 2020-06-12 06:57 | REPVR ---
PROCEDURE INFORMATION: Exam: XR Chest Exam date and time: 06/12/2020 6:07 AM Age: 75 years old Clinical indication: Other: Dyspnea/cough TECHNIQUE: Imaging protocol: XR of the chest Views: 1 view. COMPARISON: [place] PORTABLE CHEST X-RAY 05/26/2020 12:57 PM FINDINGS: Lungs: Hypoinflation, without significant airspace disease. Pleural spaces: No pleural effusion. Heart/Mediastinum: No cardiomegaly. Bones/joints: Degenerative change. IMPRESSION: Hypoinflation, without significant airspace or pleural disease. Electronically signed by: Mehran Swenson On 06/12/2020 06:57:02 AM
[2020-06-12 07:08] LABS: RSV AMPLIFICATION NEGATIVE (NEGATIVE)
--- NOTE | 2020-06-12 07:53 | ECGEPIP ---
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
--- NOTE | 2020-06-12 07:57 | ECGEPIP ---
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
[2020-06-12 08:04] LABS: CK-MB VALUE MASS 2.1 NG/ML (<3.6); CPK CREATINE PHOSPHOKINASE 100 U/L (39-308); TROPONIN I < 0.02 NG/ML (< 0.10)
[2020-06-12 08:30] VITALS: BP 147/67
== END 2020-06-12 08:40 | disposition home or self-care (01) ==
LOC: M ED 03:47
DX: R06.89 Other abnormalities of breathing (principal); T50.Z95A Adverse effect of other vaccines and biological substances, initial encounter; R00.1 Bradycardia, unspecified; E11.9 Type 2 diabetes mellitus without complications; I10 Essential (primary) hypertension; R56.9 Unspecified convulsions; Z79.82 Long term (current) use of aspirin; Z79.899 Other long term (current) drug therapy

== ENCOUNTER 2020-09-15 15:34 | Observation (INO) | payer OTHER ==
[~2020-09-15] VITALS: Ht 177.8 cm; Wt 81.2 kg
[~2020-09-15 15:34] MED LIST changes: -CALC500T44 PO; +ERGO500029 PO; +OYST500T92 PO; -VITA50005 PO
[2020-09-15] MEDS ORDERED: NS 500 ML IV ONE (16:20)
[2020-09-15] MEDS ORDERED: ONDANSETRON 4MG/2ML VIAL IV ONE (16:20)
[2020-09-15 16:56] LABS: BASO % 0.3 % (0.0-1.0); EOS % 0.1 % (0.0-3.0); HEMATOCRIT 30.8 % (42.0-52.0); HEMOGLOBIN 10.7 g/dl (13.5-17.5); LYMPH # 1.5 10^3/uL (1.5-5.0); LYMPH % 21.5 % (24.0-44.0); MEAN CORPUSCULAR HEMOGLOBIN 29.7 pg (27.0-33.0); MEAN CORPUSCULAR HGB CONC 34.7 g/dl (32.0-36.5); MEAN CORPUSCULAR VOLUME 85.6 fl (80.0-96.0); MONO # 0.8 10^3/uL (0.0-0.8); MONO % 11.3 % (2.0-8.0); NEUTROPHILS # 4.7 10^3/uL (1.5-8.5); NEUTROPHILS % 66.4 % (36.0-66.0); PLATELET COUNT, AUTOMATED 267 10^3/uL (150-450); WHITE BLOOD COUNT 7.1 10^3/uL (4.0-10.0)
[2020-09-15 17:09] LABS: ALBUMIN 3.6 GM/DL (3.2-5.2); ALT/SGPT 21 U/L (12-78); BILIRUBIN,DIRECT 0.1 MG/DL (0.0-0.2); BILIRUBIN,TOTAL 0.3 MG/DL (0.2-1.0); BLOOD UREA NITROGEN 14 MG/DL (7-18); CALCIUM LEVEL 9.2 MG/DL (8.8-10.2); CARBON DIOXIDE LEVEL 26 MEQ/L (21-32); CHLORIDE LEVEL 87 MEQ/L (98-107); CK-MB VALUE MASS 3.6 NG/ML (<3.6); CPK CREATINE PHOSPHOKINASE 169 U/L (39-308); CREATININE FOR GFR 1.01 MG/DL (0.70-1.30); GLOMERULAR FILTRATION RATE > 60.0 (>42); GLUCOSE, FASTING 113 MG/DL (70-100); LIPASE 158 U/L (73-393); MB/CK RELATIVE INDEX 2.13 (< OR =4); POTASSIUM SERUM 4.5 MEQ/L (3.5-5.1); SODIUM LEVEL 119 MEQ/L (136-145); TOTAL PROTEIN 7.2 GM/DL (6.4-8.2); TROPONIN I < 0.02 NG/ML (< 0.10); VALPROIC ACID (DEPAKOTE) 83.5 UG/ML (50.0-100.0)
--- NOTE | 2020-09-15 17:25 | REP ---
INDICATION: nausea. COMPARISON: 06/12/2020. TECHNIQUE: Single portable AP view of the chest was performed. FINDINGS: There is no acute infiltrate or pulmonary edema. Lungs are clear. The heart is not significantly enlarged. The mediastinal silhouette is unremarkable. The visualized osseous structures are intact. IMPRESSION: No acute pulmonary disease. <Electronically signed by Mir Wood > 09/15/20 0155
[2020-09-15] MEDS ORDERED: LISI40TA4 PO (17:48)
[2020-09-15] MEDS ORDERED: HYDR12CA PO (17:48)
[2020-09-15 17:51] LABS: OSMOLALITY URINE 453 MOSM/KG (50-1400)
[2020-09-15 17:56] LABS: SODIUM,RANDOM URINE 89 MEQ/L
[2020-09-15 18:00] LABS: OSMOLALITY SERUM 252 MOSM/KG (280-301)
[2020-09-15] MEDS ORDERED: ACETAMINOPHEN 500 MG TAB PO PRN (18:15)
--- NOTE | 2020-09-15 18:55 | HPE ---
HISTORY AND PHYSICAL DATE OF ADMISSION: 09/15/2020 PRIMARY CARE PROVIDER: [facility] CHIEF COMPLAINT: Severe hyponatremia. HISTORY OF PRESENT ILLNESS: Armando Valle is a 75-year-old. He has had gastroenteritis symptoms with vomiting and diarrhea. He presented to the Emergency Room hyponatremic. 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 He is followed by the [facility]. He has been continued on his SSRI therapy despite hyponatremia. Now he is significantly more hyponatremic and being admitted for observation and treatment of this. He has a history of seizure disorder. He has had a vagal nerve stimulator placed. He is on anticonvulsant therapy. He has type-2 diabetes, hypertensive heart disease, chronic low back pain. He has a history of aortic stenosis. He had an echocardiogram done during his 06/14 hospitalization and it showed mild aortic stenosis with a mean aortic valve gradient of 15 mm. Ejection fraction is 65%. Diastolic dysfunction noted. Left atrial dilatation 45 mm. During that last hospitalization, he had a workup that was consistent with SIADH. He had a serum osmolarity significantly lower than his urine osmolarity in the euvolemic state. Thyroid functions were also normal. He had a colonoscopy during that admission that just showed diverticulosis, no polyps. He has moderate to advanced multi-level degenerative spondylosis of his cervical spine seen on CT of his head and neck on his 06/14 admission. SOCIAL HISTORY: He does not smoke or drink any alcohol. FAMILY HISTORY: Father has diabetes as does a sibling. MEDICATIONS: 1. Amlodipine 10 mg daily. 2. Aspirin 81 mg daily. 3. Atorvastatin 40 mg once daily at bedtime. 4. Calcium with vitamin D. 5. Depakote ER 500 mg twice a day. 6. Colace as needed. 7. Drisdol 50,000 units monthly. 8. Hydrochlorothiazide 12.5 mg daily, (discontinued on discharge during his last hospitalization but apparently restarted by his primary care provider). 9. Lisinopril 20 mg daily. 10. Mobic 7.5 mg daily. 11. Metformin 500 mg twice a day. 12. Nitrostat p.r.n. 13. Omeprazole 20 mg twice a day. 14. Sertraline 50 mg daily. (Note the hydrochlorothiazide was discontinued during his last admission). 15. Diclofenac Gel as needed. 16. Lamictal 150 mg twice a day. 17. Melatonin at bedtime. 18. Vitamin B complex. ALLERGIES: None known. REVIEW OF SYSTEMS: No hematemesis, rectal bleeding, no recent seizures, no fevers or chills, night sweats, frequency, urgency, dysuria. PHYSICAL EXAMINATION: VITAL SIGNS: Blood pressure 162/71, pulse 64, respiratory rate 17, 95% O2 saturation. GENERAL APPEARANCE: Alert, conversant, no distress. ____ exam seems unremarkable. HEENT: Unremarkable. Pupils equal, round, reactive to light. Tympanic membranes (TMs) and oropharynx benign, dry mucous membranes. NECK: Supple. LUNGS: Clear. HEART: Regular rate and rhythm. A 2/6 systolic ejection murmur. ABDOMEN: Soft, nontender. No masses. EXTREMITIES: No clubbing, cyanosis, or edema. Normal strength in the arms and legs. LABS: White count 7.1, hemoglobin 10.7, platelets 267. Sodium 119 (baseline sodium is around 130), potassium 4.5, BUN 14, creatinine 1.0, glucose 113, serum osmolarity 252. TSH is pending. Liver functions are normal. Urine osmolarity 453. Urine sodium 89. Valproic acid level 83. Chest x-ray: No active disease. IMPRESSION AND PLAN: 1. Hyponatremia, significantly worse than baseline. This is probably secondary to the vomiting and diarrhea superimposed on underlying thiazide diuretic and selective serotonin reuptake inhibitor therapy. Once again, would recommend discontinuing the hydrochlorothiazide. 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 He received a bolus of saline in the Emergency Room. I will discontinue any bolus therapy. We will gradually rehydrate him with half normal saline trying to correct his sodium at a more moderate rate. Repeat labs are ordered for the morning. 2. Hypertension. Blood pressure is mildly elevated. We will restart his medications. 3. Diabetes. He has well controlled diabetes on Metformin. I will continue Metformin. I do not think he needs fingerstick blood sugars or coverage. His last hemoglobin A1c was 6.3 showing excellent control of his diabetes on low-dose Metformin therapy. 4. Aortic stenosis. This is mild by echocardiogram with a mean gradient of only 15 mm.
[2020-09-15] MEDS: NS 0.45% 1,000 ML IV SCH (19:07)
[2020-09-15 19:27] LABS: RSV AMPLIFICATION NEGATIVE (NEGATIVE)
[2020-09-15] MEDS ORDERED: ATORVASTATIN 20 MG TAB PO SCH (21:00)
[2020-09-15 23:11] VITALS: BP 168/68
[2020-09-15] MEDS: DIVALPROEX 500MG *ER* TAB PO SCH (23:53)
[2020-09-15] MEDS: metFORMIN XR 500MG TAB *GLUCOPHAGE XR PO SCH (23:54)
[2020-09-15] MEDS: lamoTRIgine 100MG TAB PO SCH (23:54)
[2020-09-15] MEDS: lamoTRIgine 25MG TAB PO SCH (23:54)
[2020-09-15] MEDS: DOCUSATE SODIUM 100MG CAPSULE PO SCH (23:55)
[2020-09-15] MEDS: OMEPRAZOLE 20 MG CAP PO SCH (23:55)
[2020-09-16 00:30] VITALS: BP 150/64
[2020-09-16 02:00] VITALS: BP 154/70
[2020-09-16] MEDS: NS 0.45% 1,000 ML IV SCH (04:11)
[2020-09-16 06:00] VITALS: BP 133/63
[2020-09-16 06:31] LABS: HEMATOCRIT 29.8 % (42.0-52.0); HEMOGLOBIN 10.4 g/dl (13.5-17.5); MEAN CORPUSCULAR HEMOGLOBIN 30.1 pg (27.0-33.0); MEAN CORPUSCULAR HGB CONC 34.9 g/dl (32.0-36.5); MEAN CORPUSCULAR VOLUME 86.1 fl (80.0-96.0); PLATELET COUNT, AUTOMATED 281 10^3/uL (150-450); RED BLOOD COUNT 3.46 10^6/uL (4.30-6.10); WHITE BLOOD COUNT 7.1 10^3/uL (4.0-10.0)
[2020-09-16 06:51] LABS: BLOOD UREA NITROGEN 13 MG/DL (7-18); CARBON DIOXIDE LEVEL 27 MEQ/L (21-32); CHLORIDE LEVEL 90 MEQ/L (98-107); CREATININE FOR GFR 0.95 MG/DL (0.70-1.30); GLOMERULAR FILTRATION RATE > 60.0 (>42); GLUCOSE, FASTING 96 MG/DL (70-100); POTASSIUM SERUM 4.5 MEQ/L (3.5-5.1); SODIUM LEVEL 124 MEQ/L (136-145)
[2020-09-16] MEDS: lamoTRIgine 25MG TAB PO SCH (08:57)
[2020-09-16] MEDS: metFORMIN XR 500MG TAB *GLUCOPHAGE XR PO SCH (08:57)
[2020-09-16] MEDS: OMEPRAZOLE 20 MG CAP PO SCH (08:57)
[2020-09-16] MEDS: DIVALPROEX 500MG *ER* TAB PO SCH (08:57)
[2020-09-16] MEDS: lamoTRIgine 100MG TAB PO SCH (08:57)
[2020-09-16] MEDS: DOCUSATE SODIUM 100MG CAPSULE PO SCH (08:57)
[2020-09-16 08:59] VITALS: BP 141/60
[2020-09-16] MEDS ORDERED: ENOXAPARIN 40MG/0.4ML SYRINGE (J1650 PER 10MG) SC SCH (09:00)
[2020-09-16] MEDS ORDERED: ASPIRIN 81MG ENTERIC TABLET PO SCH (09:00)
[2020-09-16 10:00] VITALS: BP 158/71
[2020-09-16 11:23] LABS: CORTISOL AM 18.2 UG/DL (4.3-22.4)
--- NOTE | 2020-09-16 11:46 | DSES ---
DISCHARGE SUMMARY DATE OF ADMISSION: 09/15/2020 DATE OF DISCHARGE: 09/16/2020 PRINCIPAL DIAGNOSIS: Asymptomatic severe hyponatremia probably secondary to medications with superimposed gastroenteritis. SECONDARY DIAGNOSES: 1. History of seizure disorder. 2. Type 2 diabetes. 3. Mild aortic stenosis. 4. Hypertensive heart disease. 5. History of depression. HISTORY: Armando Valle is chronically hyponatremic. He had been having nausea, vomiting, and diarrhea. He came to the emergency room with a lower than usual sodium. He was hyponatremic on his 05/26/2020 hospitalization and was taken off hydrochlorothiazide, but this apparently was restarted by his outpatient provider. HOSPITAL COURSE: Patient was admitted to a medical bed, given half normal saline, and taken off hydrochlorothiazide as well as sertraline. Sodium improved. He is insisting on discharge today. He has a dog at home that he is worried about someone looking after. He has been asymptomatic. On the day of discharge, his sodium is 124. It was 119 yesterday. Neurologic exam is entirely nonfocal. Mental status exam unremarkable. Workup confirmed SIADH. Serum osmolality 252. Urine osmolality of 453. Urine sodium 89. TSH was normal. Fasting cortisol is pending but would anticipate to be normal. DISPOSITION: He was discharged home in improved and stable condition. Would strongly recommend not restarting hydrochlorothiazide or sertraline on discharge as both can contribute to his longstanding hyponatremia. His activity is as tolerated. He is on a regular diet. He should not restrict sodium. He should follow up with his primary care provider who is the [facility] within a week. Would recommend repeat lab work to include a sodium level such as a basic metabolic profile at that appointment. MEDICATIONS: His medications on discharge will continue to be: 1. Tylenol as needed. 2. Amlodipine 10 mg daily. 3. Aspirin 81 mg daily. 4. Atorvastatin 40 mg daily. 5. Calcium with vitamin D. 6. Diclofenac gel 1% as needed. 7. Depakote ER 500 mg b.i.d. 8. Stool softener. 9. Drisdol 50,000 units monthly. 10. Lamictal 150 mg b.i.d. 11. Lisinopril 20 mg daily. 12. Melatonin as needed. 13. Meloxicam 7.5 mg b.i.d. p.r.n. 14. Metformin 500 mg b.i.d. 15. Nitrostat p.r.n. 16. Omeprazole 20 mg b.i.d. 17. B complex. We have discontinued hydrochlorothiazide and sertraline. Would recommend not restarting these as both can contribute to his hyponatremia issues.
--- NOTE | 2020-09-17 05:55 | ECGEPIP ---
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
== END 2020-09-16 13:17 | disposition home health service (06) ==
LOC: M ED 15:34 → M ED INP 15:35 → ENRESERV 21:00 → M MSPAV 23:10
PROVIDERS: ADMIT Family Medicine; ATTEND Family Medicine
DX: E87.1 Hypo-osmolality and hyponatremia (principal); K52.9 Noninfective gastroenteritis and colitis, unspecified; I11.9 Hypertensive heart disease without heart failure; I35.0 Nonrheumatic aortic (valve) stenosis; E11.9 Type 2 diabetes mellitus without complications; G43.909 Migraine, unspecified, not intractable, without status migrainosus; M54.5 Low back pain; F32.9 Major depressive disorder, single episode, unspecified; Z79.82 Long term (current) use of aspirin; Z79.84 Long term (current) use of oral hypoglycemic drugs; Z79.899 Other long term (current) drug therapy
CPT/HCPCS: 36415; 71045; 80048; 80076; 80164; 80175; 81001; 82533; 82550; 82553; 83690; 83930; 83935; 84300; 84443; 84484; 85025; 85027; 87631; 93005; 93041; 96361; 96372; 96374; 99285; G0378; J1650; J2405

== ENCOUNTER 2020-10-10 16:13 | Emergency (ER) | payer OTHER ==
[~2020-10-10] VITALS: Ht 177.8 cm; Wt 84.1 kg
[2020-10-10 16:50] LABS: BASO % 0.3 % (0.0-1.0); EOS % 0.5 % (0.0-3.0); HEMATOCRIT 31.3 % (42.0-52.0); HEMOGLOBIN 10.7 g/dl (13.5-17.5); LYMPH # 1.9 10^3/uL (1.5-5.0); LYMPH % 30.8 % (24.0-44.0); MEAN CORPUSCULAR HEMOGLOBIN 29.8 pg (27.0-33.0); MEAN CORPUSCULAR HGB CONC 34.2 g/dl (32.0-36.5); MEAN CORPUSCULAR VOLUME 87.2 fl (80.0-96.0); MONO # 0.8 10^3/uL (0.0-0.8); MONO % 13.2 % (2.0-8.0); NEUTROPHILS # 3.3 10^3/uL (1.5-8.5); NEUTROPHILS % 54.9 % (36.0-66.0); PLATELET COUNT, AUTOMATED 294 10^3/uL (150-450); RED BLOOD COUNT 3.59 10^6/uL (4.30-6.10); WHITE BLOOD COUNT 6.1 10^3/uL (4.0-10.0)
[2020-10-10 17:16] LABS: ALBUMIN 3.5 GM/DL (3.2-5.2); ALT/SGPT 23 U/L (12-78); BILIRUBIN,TOTAL 0.2 MG/DL (0.2-1.0); BLOOD UREA NITROGEN 14 MG/DL (7-18); CARBON DIOXIDE LEVEL 26 MEQ/L (21-32); CHLORIDE LEVEL 96 MEQ/L (98-107); CREATININE FOR GFR 1.01 MG/DL (0.70-1.30); GLOMERULAR FILTRATION RATE > 60.0 (>42); GLUCOSE, FASTING 113 MG/DL (70-100); POTASSIUM SERUM 4.7 MEQ/L (3.5-5.1); SODIUM LEVEL 130 MEQ/L (136-145); TOTAL PROTEIN 7.1 GM/DL (6.4-8.2); TROPONIN I < 0.02 NG/ML (< 0.10); VALPROIC ACID (DEPAKOTE) 60.6 UG/ML (50.0-100.0)
[2020-10-10 18:27] VITALS: BP 187/94
--- NOTE | 2020-10-11 22:04 | ECGEPIP ---
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
== END 2020-10-10 18:59 | disposition home or self-care (01) ==
LOC: M ED 16:13
DX: G40.909 Epilepsy, unspecified, not intractable, without status epilepticus (principal); R55 Syncope and collapse; I11.9 Hypertensive heart disease without heart failure; E11.9 Type 2 diabetes mellitus without complications; G43.909 Migraine, unspecified, not intractable, without status migrainosus; G89.29 Other chronic pain; M54.5 Low back pain; I35.0 Nonrheumatic aortic (valve) stenosis; Z79.82 Long term (current) use of aspirin; Z79.899 Other long term (current) drug therapy

== ENCOUNTER 2020-10-21 13:51 | Emergency (ER) | payer OTHER ==
[~2020-10-21] VITALS: Ht 177.8 cm; Wt 80.9 kg
--- NOTE | 2020-10-21 14:30 | REP ---
INDICATION: fall injury. COMPARISON: 05/26/2020. TECHNIQUE: CT brain performed in the axial plane. Coronal reconstructions are provided.. FINDINGS: Lateral ventricles are midline, symmetric and mildly prominent 3rd and 4th ventricles are also mildly prominent and all of this is proportionate to the cerebral atrophy which is diffuse but greatest in the frontal and temporal lobes. Wood-white differentiation is maintained. There is heterogeneous low-attenuation white matter in a symmetric pattern representing chronic small vessel ischemic change. No vascular territory infarct, parenchymal mass or mass effect. Posterior fossa shows brainstem intact. There is cerebellar atrophy but no mass. No posterior fossa hemorrhage. Basal cisterns are intact. Heavy vascular calcifications of the carotid siphons. Mastoids and sinuses grossly clear. The skull base and calvarium show no fracture or focal lesion.. IMPRESSION: 1. Stable noncontrast CT with no intracranial hemorrhage, acute infarct, mass or mass effect. No evidence of a skull fracture of the calvarium or skull base the visualized sinuses and mastoids are clear. 2. Chronic small vessel ischemic changes of aging and ventriculomegaly in proportion to diffuse atrophy. <Electronically signed by Osmel Wheatley > 10/21/20 [id number]
--- NOTE | 2020-10-21 14:35 | REP ---
INDICATION: fall injury. COMPARISON: 05/26/2020 TECHNIQUE: Trauma CT protocol with coronal and sagittal bone window reconstructions. FINDINGS: Sagittal images again show cervical spondylosis at C5-6 and C6-7 with anterior and posterior osteophytes and a few mm of retrolisthesis of C5 on 6 and C6 on 7. The other disc space heights and all the vertebral body heights are intact the dens was intact and shows normal relationship to the anterior arch of C1 craniocervical junction was intact. Superior endplate of T1 shows an old minor grade 1 compression, stable no prevertebral swelling. The coronal reconstruction shows dens and lateral masses align normally. Ring of C1 is intact spinous processes, lamina, pedicles, facets, transverse processes and transverse foramina are grossly intact there are certainly degenerative facet changes present. Posterior osteophytes contribute to some mild central canal stenosis at C5-6 and C6-7. Uncinate spurring at multiple levels with some marginally adequate foramina but no tight foraminal stenosis. There is no abnormal soft tissue prevertebral swelling. Airway from the nasopharynx through the subglottic trachea unremarkable. IMPRESSION: 1. No acute fracture, compression deformity or malalignment. Degenerative disc and facet arthritic changes as described. Mild central canal stenosis at C5-6 and C6-7 due to posterior osteophytes. No tight foraminal encroachment but some uncinate spurs contributing to marginally adequate foramina. No new or acute finding. Stable from 05/26/2020. <Electronically signed by Osmel Wheatley > 10/21/20 [id number]
[2020-10-21 15:38] LABS: BASO % 0.4 % (0.0-1.0); EOS # 0.1 10^3/uL (0.0-0.5); EOS % 0.8 % (0.0-3.0); HEMATOCRIT 29.8 % (42.0-52.0); HEMOGLOBIN 9.9 g/dl (13.5-17.5); LYMPH % 27.8 % (24.0-44.0); MEAN CORPUSCULAR HEMOGLOBIN 29.4 pg (27.0-33.0); MEAN CORPUSCULAR HGB CONC 33.2 g/dl (32.0-36.5); MEAN CORPUSCULAR VOLUME 88.4 fl (80.0-96.0); MONO # 0.8 10^3/uL (0.0-0.8); MONO % 10.6 % (2.0-8.0); NEUTROPHILS # 4.3 10^3/uL (1.5-8.5); PLATELET COUNT, AUTOMATED 277 10^3/uL (150-450); RED BLOOD COUNT 3.37 10^6/uL (4.30-6.10); WHITE BLOOD COUNT 7.2 10^3/uL (4.0-10.0)
[2020-10-21 16:16] LABS: BLOOD UREA NITROGEN 16 MG/DL (7-18); CALCIUM LEVEL 9.3 MG/DL (8.8-10.2); CARBON DIOXIDE LEVEL 25 MEQ/L (21-32); CHLORIDE LEVEL 99 MEQ/L (98-107); CREATININE FOR GFR 1.04 MG/DL (0.70-1.30); GLOMERULAR FILTRATION RATE > 60.0 (>42); GLUCOSE, FASTING 105 MG/DL (70-100); MAGNESIUM LEVEL 1.9 MG/DL (1.8-2.4); POTASSIUM SERUM 5.5 MEQ/L (3.5-5.1); SODIUM LEVEL 131 MEQ/L (136-145); VALPROIC ACID (DEPAKOTE) 65.8 UG/ML (50.0-100.0)
[2020-10-21 17:33] LABS: CK-MB VALUE MASS 2.6 NG/ML (<3.6); CPK CREATINE PHOSPHOKINASE 155 U/L (39-308); MB/CK RELATIVE INDEX 1.68 (< OR =4); TROPONIN I < 0.02 NG/ML (< 0.10)
[2020-10-21 17:59] VITALS: BP 164/70
[2020-10-21] MEDS ORDERED: DEPA250T2 PO (18:33)
[2020-10-21] MEDS ORDERED: DEPA500T2 PO (18:33)
--- NOTE | 2020-10-22 07:42 | ECGEPIP ---
[facility] - ED Test Date: 2020-10-21 Pat Name: RINA HELM Department: Room: - Gender: Male [employer]: CAMI : 1945 Requested By: Zeyad Rivas Order Number: [id number] Reading MD: Zeyad Ahumada Measurements Intervals [place] Rate: 63 P: 43 NE: 198 QRS: 9 QRSD: 98 T: 81 QT: 366 QTc: 374 Interpretive Statements Normal sinus rhythm Nonspecific ST and T wave abnormality SIMILAR TO 10/10/20 Electronically Signed on 10-22-2020 7:41:47 EDT by Zeyad Ahumada
== END 2020-10-21 18:49 | disposition home or self-care (01) ==
LOC: M ED 13:51 → EDSEX 13:51 → EDBD 13:51 → M ED 18:49
DX: G40.89 Other seizures (principal); E87.5 Hyperkalemia; S00.03XA Contusion of scalp, initial encounter; X58.XXXA Exposure to other specified factors, initial encounter; Y92.9 Unspecified place or not applicable; Y93.9 Activity, unspecified; Y99.9 Unspecified external cause status; E11.9 Type 2 diabetes mellitus without complications; I10 Essential (primary) hypertension; Z79.82 Long term (current) use of aspirin; Z79.899 Other long term (current) drug therapy

== ENCOUNTER 2020-12-24 10:32 | Emergency (ER) | payer MEDICARE, OTHER ==
[~2020-12-24] VITALS: Ht 177.8 cm; Wt 79.5 kg
[~2020-12-24 10:32] MED LIST changes: +DEPA250T2 PO
[2020-12-24 12:02] LABS: BASO % 0.2 % (0.0-1.0); EOS % 0.7 % (0.0-3.0); HEMOGLOBIN 10.1 g/dl (13.5-17.5); LYMPH # 1.7 10^3/uL (1.5-5.0); LYMPH % 28.7 % (24.0-44.0); MEAN CORPUSCULAR HEMOGLOBIN 30.1 pg (27.0-33.0); MEAN CORPUSCULAR HGB CONC 33.7 g/dl (32.0-36.5); MEAN CORPUSCULAR VOLUME 89.6 fl (80.0-96.0); MONO # 0.7 10^3/uL (0.0-0.8); MONO % 11.4 % (2.0-8.0); NEUTROPHILS # 3.5 10^3/uL (1.5-8.5); NEUTROPHILS % 58.7 % (36.0-66.0); PLATELET COUNT, AUTOMATED 288 10^3/uL (150-450); RED BLOOD COUNT 3.35 10^6/uL (4.30-6.10)
[2020-12-24 12:41] LABS: BLOOD UREA NITROGEN 20 MG/DL (7-18); CALCIUM LEVEL 9.5 MG/DL (8.8-10.2); CARBON DIOXIDE LEVEL 29 MEQ/L (21-32); CHLORIDE LEVEL 100 MEQ/L (98-107); CPK CREATINE PHOSPHOKINASE 133 U/L (39-308); CREATININE FOR GFR 1.26 MG/DL (0.70-1.30); GLOMERULAR FILTRATION RATE 59.7 (>42); GLUCOSE, FASTING 117 MG/DL (70-100); MB/CK RELATIVE INDEX 2.26 (< OR =4); POTASSIUM SERUM 4.7 MEQ/L (3.5-5.1); SODIUM LEVEL 134 MEQ/L (136-145); TROPONIN I < 0.02 NG/ML (< 0.10)
--- NOTE | 2020-12-24 13:50 | REP ---
INDICATION: trauma. COMPARISON: Comparison head CT study October 21, 2020. TECHNIQUE: Helical scanning is acquired. 5 mm axial images were reformatted. Coronal MPR images were generated. FINDINGS: Bone window settings demonstrate an intact bony calvarium. There is no evidence of skull fracture or incidental bony calvarial lesion. The visualized paranasal sinuses appear clear. No intraorbital abnormality is seen. On soft tissue window setting images; the lateral, third, and fourth ventricles are normal in size and position. Wood-white differentiation pattern is normal above and below the tentorium. There are is no evidence of intracranial hemorrhage. No mass, edema, infarction, or midline shift is seen. No extra-axial fluid collection is appreciated. There is heavy vascular calcification in the distal vertebral and distal internal carotid arteries. Generalized volume loss is noted. Small-vessel atherosclerotic changes are again seen. These findings are unchanged. IMPRESSION: Volume loss, vascular calcification, small vessel changes. No acute intracranial abnormality. No skull fracture or intracranial injury. <Electronically signed by Ed Baxter > 12/24/20 [id number]
--- NOTE | 2020-12-24 13:54 | REP ---
INDICATION: trauma. COMPARISON: Comparison CT study of the cervical spine October 21, 2020. TECHNIQUE: Helical scanning is acquired and overlapping 2 mm high resolution axial images were generated and reviewed at bone and soft tissue window settings. Coronal and sagittal multiplanar re-formations images are generated. FINDINGS: There is no evidence of cervical spine element fracture. No skull base fracture is seen. Cervical vertebral body heights are preserved. Alignment is normal. Facet joints are normally aligned bilaterally at each cervical level on multiplanar re-formations images. There is no evidence of intraspinal or paraspinal hematoma. No extra vertebral abnormality is seen. There is degenerative disc narrowing and osteophyte formation at the C5-6 and C6-7 disc levels. There is mild osteoarthritic facet hypertrophy in the midcervical spine. There is straightening. These findings are unchanged. IMPRESSION: Degenerative spondylosis changes again noted as seen on October 21, 2020 study. No traumatic abnormality seen. <Electronically signed by Ed Baxter > 12/24/20 [id number]
[2020-12-24 16:36] VITALS: BP 200/93
--- NOTE | 2020-12-24 21:37 | ECGEPIP ---
[facility] - ED Test Date: 2020-12-24 Pat Name: RINA HELM Department: Room: - Gender: Male Medical Records Coordinator: MEENAKSHIOLIVER : 1945 Requested By: Zeyad Rivas Order Number: [id number] Reading MD: Chelsy Wills Measurements Intervals [place] Rate: 63 P: 11 MS: 170 QRS: -3 QRSD: 102 T: 118 QT: 384 QTc: 392 Interpretive Statements Normal sinus rhythm ST & T wave abnormality, consider ischemia similar 10/21/20 Electronically Signed on 12-24-2020 21:37:06 EDT by Chelsy Wills
== END 2020-12-24 16:38 | disposition home or self-care (01) ==
LOC: M ED 10:32
DX: R55 Syncope and collapse (principal); G40.89 Other seizures; I10 Essential (primary) hypertension; D64.9 Anemia, unspecified; M47.812 Spondylosis without myelopathy or radiculopathy, cervical region; Z79.82 Long term (current) use of aspirin; Z79.899 Other long term (current) drug therapy

== ENCOUNTER 2021-04-28 15:31 | Emergency (ER) | payer MEDICARE, OTHER ==
[~2021-04-28] VITALS: Ht 177.8 cm; Wt 85.7 kg
[~2021-04-28 15:31] MED LIST changes: +OMEP-173 PO; -OMEP-218 PO
[2021-04-28] MEDS ORDERED: ACETAMINOPHEN 500 MG TAB PO ONE (17:05)
[2021-04-28 19:20] VITALS: BP 165/82
== END 2021-04-28 19:41 | disposition home or self-care (01) ==
LOC: M ED 15:31
DX: S20.211A Contusion of right front wall of thorax, initial encounter (principal); S30.22XA Contusion of scrotum and testes, initial encounter; W19.XXXA Unspecified fall, initial encounter; Y92.009 Unspecified place in unspecified non-institutional (private) residence as the place of occurrence of the external cause; Y93.9 Activity, unspecified; Y99.9 Unspecified external cause status; E11.9 Type 2 diabetes mellitus without complications; I35.0 Nonrheumatic aortic (valve) stenosis; G40.89 Other seizures; Z79.82 Long term (current) use of aspirin; Z79.84 Long term (current) use of oral hypoglycemic drugs; Z79.899 Other long term (current) drug therapy

== ENCOUNTER 2021-08-04 17:07 | Emergency (ER) | payer MEDICARE, OTHER ==
[~2021-08-04] VITALS: Ht 177.8 cm; Wt 82.7 kg
[2021-08-04] MEDS ORDERED: GABA-1171 PO (17:28)
[2021-08-04] MEDS ORDERED: DIVA500T94 PO (17:28)
[2021-08-04 19:09] LABS: BASO % 0.3 % (0.0-1.0); EOS # 0.1 10^3/uL (0.0-0.5); EOS % 1.1 % (0.0-3.0); HEMATOCRIT 29.8 % (42.0-52.0); HEMOGLOBIN 10.1 g/dl (13.5-17.5); LYMPH # 2.5 10^3/uL (1.5-5.0); MEAN CORPUSCULAR HEMOGLOBIN 30.8 pg (27.0-33.0); MEAN CORPUSCULAR HGB CONC 33.9 g/dl (32.0-36.5); MEAN CORPUSCULAR VOLUME 90.9 fl (80.0-96.0); MONO # 0.9 10^3/uL (0.0-0.8); MONO % 12.9 % (2.0-8.0); NEUTROPHILS # 3.2 10^3/uL (1.5-8.5); NEUTROPHILS % 47.5 % (36.0-66.0); PLATELET COUNT, AUTOMATED 269 10^3/uL (150-450); RED BLOOD COUNT 3.28 10^6/uL (4.30-6.10); WHITE BLOOD COUNT 6.7 10^3/uL (4.0-10.0)
[2021-08-04 19:21] LABS: PROTHROMBIN TIME 13.6 SECONDS (12.7-14.5)
[2021-08-04 19:24] LABS: D-DIMER QUANT 638.49 ng/ml (<500)
[2021-08-04 19:34] LABS: CK-MB VALUE MASS 2.9 NG/ML (<3.6); MB/CK RELATIVE INDEX 2.18 (< OR =4)
[2021-08-04 19:37] LABS: CREATININE FOR GFR 1.74 MG/DL (0.70-1.30); FREE T4 0.8 NG/DL (0.76-1.46); MAGNESIUM LEVEL 2.3 MG/DL (1.8-2.4); POTASSIUM SERUM 5.6 MEQ/L (3.5-5.1); THYROID STIMULATING HORMONE 2.05 uIU/ML (0.358-3.740)
[2021-08-04] MEDS ORDERED: NS 1,000 ML IV ONE (19:55)
[2021-08-04] MEDS ORDERED: ISOVUE-370 76% 100ML VIAL As Ordered ONE (19:58)
[2021-08-04 20:28] LABS: APPEARANCE, URINE CLEAR (CLEAR); BACTERIA, URINE AUTO NEGATIVE (NEGATIVE); BILIRUBIN, URINE AUTO NEGATIVE (NEGATIVE); BLOOD, URINE BLOOD NEGATIVE (NEGATIVE); COLOR, URINE YELLOW (YELLOW); GLUCOSE, URINE (UA) AUTO NEGATIVE (NEGATIVE); KETONE, URINE AUTO NEGATIVE (NEGATIVE); LEUKOCYTE ESTERASE, URINE AUTO NEGATIVE (NEGATIVE); NITRITE, URINE AUTO NEGATIVE (NEGATIVE); PROTEIN, URINE AUTO NEGATIVE (NEGATIVE); RBC, URINE AUTO 1 /HPF (0-3); SPECIFIC GRAVITY URINE AUTO 1.015 (1.002-1.035); SQUAMOUS EPITHELIAL CELL UR AU 0 /HPF (0-6); UROBILINOGEN, URINE AUTO 0.2 mg/dL (0.0-2.0); WBC, URINE AUTO 0 /HPF (0-3)
[2021-08-04 20:40] VITALS: BP 177/80
[2021-08-04 20:52] LABS: CK-MB VALUE MASS 2.3 NG/ML (<3.6); MB/CK RELATIVE INDEX 1.95 (< OR =4)
[2021-08-04 21:55] VITALS: BP 183/96
== END 2021-08-04 21:57 | disposition home or self-care (01) ==
LOC: M ED 17:07
DX: R55 Syncope and collapse (principal); N28.9 Disorder of kidney and ureter, unspecified; E11.9 Type 2 diabetes mellitus without complications; I10 Essential (primary) hypertension; R56.9 Unspecified convulsions; I35.0 Nonrheumatic aortic (valve) stenosis; Z96.82 Presence of neurostimulator; Z79.84 Long term (current) use of oral hypoglycemic drugs; Z79.899 Other long term (current) drug therapy
CPT/HCPCS: 70450; 71045; 71275; 76775; 80048; 80175; 81001; 82550; 82553; 83605; 83735; 84439; 84443; 84484; 85025; 85379; 85610; 93005; 99284; Q9967

== ENCOUNTER 2022-05-09 16:52 | Emergency (ER) | payer MEDICARE, OTHER ==
[~2022-05-09] VITALS: Ht 177.8 cm; Wt 95.5 kg
[~2022-05-09 16:52] MED LIST changes: +DIVA500T94 PO
[2022-05-09 18:00] LABS: CK-MB VALUE MASS 2.4 NG/ML (<3.6); ETHYL ALCOHOL (ETHANOL) < 0.003 % (0.000-0.010)
[2022-05-09 18:01] LABS: VALPROIC ACID (DEPAKOTE) 51.4 UG/ML (50.0-100.0)
[2022-05-09 18:02] LABS: SALICYLATE LEVEL < 3.0 MG/DL (<30)
[2022-05-09 18:03] LABS: ACETAMINOPHEN LEVEL < 2.0 UG/ML (10.0-20.0); ALBUMIN 3.7 G/DL (3.2-5.2); ALKALINE PHOSPHATASE 42 U/L (46-116); ALT/SGPT 18 U/L (7.0-40); AST/SGOT < 8 U/L (<34); BILIRUBIN,DIRECT < 0.1 MG/DL (<0.4); BILIRUBIN,TOTAL 0.2 MG/DL (0.3-1.2); BLOOD UREA NITROGEN 26 MG/DL (9-23); CALCIUM LEVEL 9.8 MG/DL (8.3-10.6); CARBON DIOXIDE LEVEL 29 MMOL/L (20-31); CHLORIDE LEVEL 104 MMOL/L (98-107); CPK CREATINE PHOSPHOKINASE 142 U/L (46-171); CREATININE FOR GFR 1.65 MG/DL (0.70-1.30); GLOMERULAR FILTRATION RATE 43.5 (>42); GLUCOSE, FASTING 121 MG/DL (74-106); MAGNESIUM LEVEL 1.9 MG/DL (1.8-2.4); MB/CK RELATIVE INDEX 1.69 (< OR =4); PHOSPHORUS LEVEL 3.8 MG/DL (2.4-5.1); POTASSIUM SERUM 5.4 MMOL/L (3.5-5.1); SODIUM LEVEL 134 MMOL/L (136-145); TOTAL PROTEIN 7.1 G/DL (5.7-8.2)
[2022-05-09 18:04] LABS: BASO % 0.2 % (0.0-1.0); EOS # 0.1 10^3/uL (0.0-0.5); EOS % 1.2 % (0.0-3.0); HEMOGLOBIN 10.9 g/dl (13.5-17.5); LYMPH # 1.8 10^3/uL (1.5-5.0); MEAN CORPUSCULAR HEMOGLOBIN 31.9 pg (27.0-33.0); MEAN CORPUSCULAR VOLUME 96.5 fl (80.0-96.0); MONO # 0.6 10^3/uL (0.0-0.8); MONO % 10.1 % (2.0-8.0); NEUTROPHILS # 3.2 10^3/uL (1.5-8.5); NEUTROPHILS % 56.1 % (36.0-66.0); PLATELET COUNT, AUTOMATED 272 10^3/uL (150-450); RED BLOOD COUNT 3.42 10^6/uL (4.30-6.10); THYROID STIMULATING HORMONE 2.245 uIU/ML (0.55-4.78); WHITE BLOOD COUNT 5.6 10^3/uL (4.0-10.0)
[2022-05-09 18:10] LABS: AMPHETAMINES LEVEL URINE NEGATIVE (NEGATIVE); BARBITURATES URINE NEGATIVE (NEGATIVE); BENZODIAZEPINES URINE NEGATIVE (NEGATIVE); CANNABINOIDS URINE NEGATIVE (NEGATIVE); COCAINE METABOLITE URINE NEGATIVE (NEGATIVE); METHADONE URINE NEGATIVE (NEGATIVE); OPIATES URINE NEGATIVE (NEGATIVE); PHENCYCLIDINE URINE NEGATIVE (NEGATIVE)
[2022-05-09 19:01] VITALS: BP 130/62
== END 2022-05-09 19:25 | disposition home or self-care (01) ==
LOC: M ED 16:52 → EDBD 16:52 → M ED 19:25
DX: R55 Syncope and collapse (principal); E11.9 Type 2 diabetes mellitus without complications; I10 Essential (primary) hypertension; K21.9 Gastro-esophageal reflux disease without esophagitis; G40.89 Other seizures; Z87.442 Personal history of urinary calculi; Z79.82 Long term (current) use of aspirin; Z79.811 Long term (current) use of aromatase inhibitors; Z79.4 Long term (current) use of insulin; Z79.02 Long term (current) use of antithrombotics/antiplatelets; Z79.899 Other long term (current) drug therapy

== ENCOUNTER 2022-10-31 06:32 | Emergency (ER) | payer MEDICARE, OTHER ==
[~2022-10-31] VITALS: Ht 177.8 cm; Wt 79.0 kg
[~2022-10-31 06:32] MED LIST changes: +ARTIDRO4 OD; +DICL100G10 TOP; -DICL1GEL3 TOP; -OFLO3OPSO OD; +OFLO5DRO OD; -POLYOPD OD
[2022-10-31 09:17] LABS: BASO % 0.3 % (0.0-1.0); EOS % 0.3 % (0.0-3.0); HEMATOCRIT 34.3 % (42.0-52.0); HEMOGLOBIN 12.1 g/dl (13.5-17.5); LYMPH # 2.4 10^3/uL (1.5-5.0); LYMPH % 36.8 % (24.0-44.0); MEAN CORPUSCULAR HEMOGLOBIN 32.1 pg (27.0-33.0); MEAN CORPUSCULAR HGB CONC 35.3 g/dl (32.0-36.5); MONO # 0.6 10^3/uL (0.0-0.8); MONO % 9.6 % (2.0-8.0); NEUTROPHILS # 3.4 10^3/uL (1.5-8.5); NEUTROPHILS % 52.7 % (36.0-66.0); PLATELET COUNT, AUTOMATED 290 10^3/uL (150-450); RED BLOOD COUNT 3.77 10^6/uL (4.30-6.10); WHITE BLOOD COUNT 6.5 10^3/uL (4.0-10.0)
[2022-10-31 09:49] LABS: BILIRUBIN,DIRECT 0.1 MG/DL (<0.4); BILIRUBIN,TOTAL 0.4 MG/DL (0.3-1.2); CALCIUM LEVEL 10.2 MG/DL (8.3-10.6); CREATININE FOR GFR 1.4 MG/DL (0.70-1.30); GLOMERULAR FILTRATION RATE 52.6 (>42); POTASSIUM SERUM 4.5 MMOL/L (3.5-5.1)
[2022-10-31 09:51] LABS: THYROID STIMULATING HORMONE 1.918 uIU/ML (0.55-4.78)
[2022-10-31 09:54] LABS: MB/CK RELATIVE INDEX 2.42 (< OR =4)
[2022-10-31 10:06] LABS: RSV AMPLIFICATION NEGATIVE (NEGATIVE)
[2022-10-31] MEDS ORDERED: ONDANSETRON 4MG 2ML VIAL IV ONE (10:15)
[2022-10-31] MEDS ORDERED: MORPHINE 2 MG/ML 1ML VIAL IV ONE (10:15)
[2022-10-31 11:23] LABS: VALPROIC ACID (DEPAKOTE) 71.3 UG/ML (50.0-100.0)
[2022-10-31 11:44] LABS: CK-MB VALUE MASS 2.7 NG/ML (<3.6)
[2022-10-31 11:45] LABS: MB/CK RELATIVE INDEX 1.81 (< OR =4)
[2022-10-31] MEDS ORDERED: LIDOCAINE 5% (LIDODERM) PATCH TD ONE (12:15)
[2022-10-31] MEDS ORDERED: NS 500 ML IV ONE (12:15)
[2022-10-31] MEDS ORDERED: methylPREDNISolone 125MG 2ML VIAL IV ONE (12:15)
[2022-10-31] MEDS ORDERED: KETOROLAC 30 MG/ML 1ML VIAL IV ONE (12:15)
[2022-10-31] MEDS ORDERED: ASPE4PAD TOP (14:17)
[2022-10-31] MEDS ORDERED: MEDR4PAK PO (14:17)
[2022-10-31 14:28] VITALS: BP 196/100
[2022-10-31 14:51] VITALS: TEMP 97.2; O2SAT 96
[2022-10-31 14:55] VITALS: BP 190/90
== END 2022-10-31 15:10 | disposition home or self-care (01) ==
LOC: M ED 06:32
DX: M54.41 Lumbago with sciatica, right side (principal); M16.11 Unilateral primary osteoarthritis, right hip; M47.9 Spondylosis, unspecified; Z79.899 Other long term (current) drug therapy; Z79.84 Long term (current) use of oral hypoglycemic drugs; I10 Essential (primary) hypertension; K21.9 Gastro-esophageal reflux disease without esophagitis; G40.909 Epilepsy, unspecified, not intractable, without status epilepticus
CPT/HCPCS: 36415; 70450; 71045; 72131; 72192; 73502; 73560; 80048; 80076; 80164; 80175; 80180; 82550; 82553; 83605; 84443; 84484; 85025; 87631; 93005; 96374; 96375; 99285; J1885; J2405; J2930

== ENCOUNTER 2023-01-02 19:23 | Emergency (ER) | payer MEDICARE, OTHER ==
[~2023-01-02] VITALS: Ht 177.8 cm; Wt 77.5 kg
[~2023-01-02 19:23] MED LIST changes: +ASPE4PAD TOP; +MEDR4PAK PO
[2023-01-02 20:29] LABS: BASO % 0.3 % (0.0-1.0); EOS # 0.1 10^3/uL (0.0-0.5); EOS % 1.1 % (0.0-3.0); HEMATOCRIT 30.1 % (42.0-52.0); HEMOGLOBIN 10.1 g/dl (13.5-17.5); LYMPH # 2.4 10^3/uL (1.5-5.0); LYMPH % 34.5 % (24.0-44.0); MEAN CORPUSCULAR HEMOGLOBIN 31.9 pg (27.0-33.0); MEAN CORPUSCULAR HGB CONC 33.6 g/dl (32.0-36.5); MONO # 0.9 10^3/uL (0.0-0.8); MONO % 12.7 % (2.0-8.0); NEUTROPHILS # 3.6 10^3/uL (1.5-8.5); PLATELET COUNT, AUTOMATED 277 10^3/uL (150-450); RED BLOOD COUNT 3.17 10^6/uL (4.30-6.10)
[2023-01-02] MEDS ORDERED: NS 1,000 ML IV ONE (20:35)
[2023-01-02] MEDS ORDERED: LEVETIRACETAM IV ONE (21:00)
[2023-01-02] MEDS ORDERED: D5W IV ONE (21:00)
[2023-01-02 21:23] LABS: ALBUMIN 3.5 G/DL (3.2-5.2); ALKALINE PHOSPHATASE 44 U/L (46-116); ALT/SGPT 17 U/L (7.0-40); AST/SGOT 14 U/L (<34); BILIRUBIN,DIRECT < 0.1 MG/DL (<0.4); BILIRUBIN,TOTAL 0.2 MG/DL (0.3-1.2); BLOOD UREA NITROGEN 21 MG/DL (9-23); CALCIUM LEVEL 9.7 MG/DL (8.3-10.6); CARBON DIOXIDE LEVEL 26 MMOL/L (20-31); CHLORIDE LEVEL 104 MMOL/L (98-107); CREATININE FOR GFR 1.41 MG/DL (0.70-1.30); GLOMERULAR FILTRATION RATE 52.2 (>42); GLUCOSE, FASTING 122 MG/DL (74-106); MAGNESIUM LEVEL 1.9 MG/DL (1.8-2.4); POTASSIUM SERUM 4.4 MMOL/L (3.5-5.1); SODIUM LEVEL 137 MMOL/L (136-145); TOTAL PROTEIN 6.9 G/DL (5.7-8.2)
[2023-01-02 22:53] LABS: ETHYL ALCOHOL (ETHANOL) 0.004 % (0.000-0.010)
[2023-01-03] MEDS ORDERED: D5W IV ONE (00:30)
[2023-01-03] MEDS ORDERED: VALPROATE SOD IV ONE (00:30)
[2023-01-03 00:56] LABS: VALPROIC ACID (DEPAKOTE) 58.4 UG/ML (50.0-100.0)
[2023-01-03 01:25] LABS: AMPHETAMINES LEVEL URINE NEGATIVE (NEGATIVE); BARBITURATES URINE NEGATIVE (NEGATIVE); BENZODIAZEPINES URINE NEGATIVE (NEGATIVE); CANNABINOIDS URINE NEGATIVE (NEGATIVE); COCAINE METABOLITE URINE NEGATIVE (NEGATIVE); METHADONE URINE NEGATIVE (NEGATIVE); OPIATES URINE NEGATIVE (NEGATIVE); PHENCYCLIDINE URINE NEGATIVE (NEGATIVE)
[2023-01-03 01:31] VITALS: BP 142/76; TEMP 98.1; O2SAT 99
== END 2023-01-03 01:34 | disposition home or self-care (01) ==
LOC: M ED 19:23 → EDBD 19:23 → M ED 01-03 01:34
DX: G40.909 Epilepsy, unspecified, not intractable, without status epilepticus (principal); K21.9 Gastro-esophageal reflux disease without esophagitis; E11.9 Type 2 diabetes mellitus without complications; I10 Essential (primary) hypertension; Z86.73 Personal history of transient ischemic attack (TIA), and cerebral infarction without residual deficits; Z79.84 Long term (current) use of oral hypoglycemic drugs; Z79.811 Long term (current) use of aromatase inhibitors; Z79.82 Long term (current) use of aspirin; Z79.02 Long term (current) use of antithrombotics/antiplatelets; Z79.899 Other long term (current) drug therapy
CPT/HCPCS: 70450; 72125; 80048; 80076; 80164; 80180; 80307; 81001; 82077; 83605; 83735; 85025; 94760; 96365; 96366; 99284; J1953

== ENCOUNTER 2023-01-20 14:24 | Emergency (ER) | payer MEDICARE, OTHER ==
[~2023-01-20] VITALS: Ht 177.8 cm; Wt 74.3 kg
[~2023-01-20 14:24] MED LIST changes: +NIRMATRELVIR/RITONAVIR (RENAL) CO-PACK (EUA) PO SCH
[2023-01-20 17:41] LABS: EOS % 0.2 % (0.0-3.0); HEMATOCRIT 32.1 % (42.0-52.0); HEMOGLOBIN 10.9 g/dl (13.5-17.5); LYMPH # 1.7 10^3/uL (1.5-5.0); LYMPH % 40.4 % (24.0-44.0); MEAN CORPUSCULAR HEMOGLOBIN 31.1 pg (27.0-33.0); MEAN CORPUSCULAR VOLUME 91.7 fl (80.0-96.0); MONO # 0.6 10^3/uL (0.0-0.8); MONO % 13.7 % (2.0-8.0); NEUTROPHILS # 1.9 10^3/uL (1.5-8.5); NEUTROPHILS % 45.5 % (36.0-66.0); PLATELET COUNT, AUTOMATED 212 10^3/uL (150-450); WHITE BLOOD COUNT 4.2 10^3/uL (4.0-10.0)
[2023-01-20 17:58] LABS: CK-MB VALUE MASS 2.1 NG/ML (<3.6)
[2023-01-20 18:00] LABS: VALPROIC ACID (DEPAKOTE) 65.6 UG/ML (50.0-100.0)
[2023-01-20 18:01] LABS: ALBUMIN 3.3 G/DL (3.2-5.2); BILIRUBIN,DIRECT 0.1 MG/DL (<0.4); BILIRUBIN,TOTAL 0.3 MG/DL (0.3-1.2); CALCIUM LEVEL 8.8 MG/DL (8.3-10.6); CREATININE FOR GFR 1.8 MG/DL (0.70-1.30); GLOMERULAR FILTRATION RATE 39.4 (>42); MAGNESIUM LEVEL 2.2 MG/DL (1.8-2.4); MB/CK RELATIVE INDEX 1.96 (< OR =4); POTASSIUM SERUM 4.3 MMOL/L (3.5-5.1); TOTAL PROTEIN 6.7 G/DL (5.7-8.2)
[2023-01-20 18:08] LABS: RSV AMPLIFICATION NEGATIVE (NEGATIVE)
[2023-01-20] MEDS ORDERED: NS 500 ML IV ONE (18:45)
[2023-01-20 19:37] LABS: CK-MB VALUE MASS 1.4 NG/ML (<3.6)
[2023-01-20 19:38] LABS: MB/CK RELATIVE INDEX 1.4 (< OR =4)
[2023-01-20] MEDS ORDERED: DIVA500T9 PO (20:47)
[2023-01-20] MEDS ORDERED: HYDR10TAB PO (20:49)
[2023-01-20] MEDS ORDERED: HOME MED LIST COMPLETE! XX SCH (20:50)
[2023-01-20] MEDS ORDERED: NIRMATRELVIR/RITONAVIR CO-PACK (EMERGENCY USE AUTH) PO SCH ×2 (21:00)
[2023-01-20 21:26] VITALS: O2SAT 95
[2023-01-20 21:31] VITALS: BP 173/76; TEMP 96.7; O2SAT 98
== END 2023-01-20 21:43 | disposition home or self-care (01) ==
LOC: M ED 14:24
DX: U07.1 COVID-19 (principal); I25.2 Old myocardial infarction; E11.9 Type 2 diabetes mellitus without complications; I10 Essential (primary) hypertension; C90.00 Multiple myeloma not having achieved remission; Z79.811 Long term (current) use of aromatase inhibitors; Z79.4 Long term (current) use of insulin; Z79.891 Long term (current) use of opiate analgesic; Z79.899 Other long term (current) drug therapy

== ENCOUNTER 2023-07-07 16:14 | Emergency (ER) | payer OTHER, MEDICARE ==
[~2023-07-07] VITALS: Ht 177.8 cm; Wt 77.8 kg
[~2023-07-07 16:14] MED LIST changes: +HYDR-161 PO; -NIRMATRELVIR/RITONAVIR (RENAL) CO-PACK (EUA) PO SCH
[2023-07-07] MEDS: NS 1,000 ML IV ONE (17:43)
[2023-07-07 17:48] VITALS: BP 158/70; TEMP 96.8; O2SAT 99
[2023-07-07 18:03] LABS: BASO % 0.2 % (0.0-1.0); EOS % 0.5 % (0.0-3.0); HEMATOCRIT 28.5 % (42.0-52.0); HEMOGLOBIN 9.9 g/dl (13.5-17.5); LYMPH # 2.2 10^3/uL (1.5-5.0); LYMPH % 36.3 % (24.0-44.0); MEAN CORPUSCULAR HEMOGLOBIN 32.4 pg (27.0-33.0); MEAN CORPUSCULAR HGB CONC 34.7 g/dl (32.0-36.5); MEAN CORPUSCULAR VOLUME 93.1 fl (80.0-96.0); MONO # 0.7 10^3/uL (0.0-0.8); MONO % 10.9 % (2.0-8.0); NEUTROPHILS # 3.2 10^3/uL (1.5-8.5); NEUTROPHILS % 51.6 % (36.0-66.0); PLATELET COUNT, AUTOMATED 270 10^3/uL (150-450); RED BLOOD COUNT 3.06 10^6/uL (4.30-6.10); WHITE BLOOD COUNT 6.2 10^3/uL (4.0-10.0)
[2023-07-07 18:30] LABS: C REACTIVE PROTEIN QUANTITATIV < 0.40 MG/DL (<1.0)
[2023-07-07 18:31] LABS: CK-MB VALUE MASS 2.3 NG/ML (<3.6); CPK CREATINE PHOSPHOKINASE 83 U/L (46-171); D-DIMER QUANT 0.63 ug/mL (<0.5); INR 1.15; MB/CK RELATIVE INDEX 2.77 (< OR =4); PARTIAL THROMBOPLASTIN TIME 25.3 SECONDS (24.8-34.2); PROTHROMBIN TIME 14.3 SECONDS (12.5-14.5)
[2023-07-07 18:32] LABS: ALBUMIN 3.1 G/DL (3.2-5.2); ALKALINE PHOSPHATASE 29 U/L (46-116); ALT/SGPT 12 U/L (7.0-40); AST/SGOT 11 U/L (<34); BILIRUBIN,DIRECT < 0.1 MG/DL (<0.4); BILIRUBIN,TOTAL 0.2 MG/DL (0.3-1.2); BLOOD UREA NITROGEN 27 MG/DL (9-23); CALCIUM LEVEL 9.2 MG/DL (8.3-10.6); CARBON DIOXIDE LEVEL 28 MMOL/L (20-31); CHLORIDE LEVEL 99 MMOL/L (98-107); GLUCOSE, FASTING 102 MG/DL (74-106); POTASSIUM SERUM 4.6 MMOL/L (3.5-5.1); SODIUM LEVEL 133 MMOL/L (136-145)
[2023-07-07 18:40] LABS: PROCALCITONIN 0.04 ng/ml
[2023-07-07] MEDS ORDERED: ISOVUE-370 76% 100ML VIAL As Ordered ONE (18:57)
[2023-07-07 19:33] LABS: CK-MB VALUE MASS 2.1 NG/ML (<3.6)
[2023-07-07 19:35] LABS: MB/CK RELATIVE INDEX 2.83 (< OR =4)
[2023-07-07 21:01] VITALS: BP 155/70
[2023-07-07 21:05] VITALS: TEMP 97; O2SAT 86
== END 2023-07-07 21:11 | disposition home or self-care (01) ==
LOC: M ED 16:14 → EDBD 16:14 → M ED 21:11
DX: R07.9 Chest pain, unspecified (principal); B34.8 Other viral infections of unspecified site; E11.9 Type 2 diabetes mellitus without complications; I10 Essential (primary) hypertension; E04.2 Nontoxic multinodular goiter; R93.1 Abnormal findings on diagnostic imaging of heart and coronary circulation; Z79.82 Long term (current) use of aspirin; Z79.899 Other long term (current) drug therapy
CPT/HCPCS: 70450; 71045; 71275; 80047; 80048; 80076; 81001; 82550; 82553; 84145; 84484; 85025; 85379; 85610; 85730; 86140; 87040; 87486; 87581; 87633; 87798; 93041; 93880; 94760; 96360; 99285; Q9967

== ENCOUNTER 2023-09-13 19:04 | Emergency (ER) | payer OTHER, MEDICARE ==
[~2023-09-13] VITALS: Ht 177.8 cm; Wt 72.0 kg
[2023-09-13 20:15] LABS: HEMATOCRIT 29.8 % (42.0-52.0); HEMOGLOBIN 10.5 g/dl (13.5-17.5); LYMPH # 0.4 10^3/uL (1.5-5.0); LYMPH % 8.2 % (24.0-44.0); MEAN CORPUSCULAR HEMOGLOBIN 33.3 pg (27.0-33.0); MEAN CORPUSCULAR HGB CONC 35.2 g/dl (32.0-36.5); MEAN CORPUSCULAR VOLUME 94.6 fl (80.0-96.0); MONO # 0.4 10^3/uL (0.0-0.8); MONO % 7.4 % (2.0-8.0); NEUTROPHILS # 4.3 10^3/uL (1.5-8.5); PLATELET COUNT, AUTOMATED 226 10^3/uL (150-450); RED BLOOD COUNT 3.15 10^6/uL (4.30-6.10); WHITE BLOOD COUNT 5.1 10^3/uL (4.0-10.0)
[2023-09-13 20:48] LABS: ALBUMIN 3.6 G/DL (3.2-5.2); BILIRUBIN,DIRECT 0.2 MG/DL (<0.4); BILIRUBIN,TOTAL 0.3 MG/DL (0.3-1.2); CREATININE FOR GFR 1.48 MG/DL (0.70-1.30); GLOMERULAR FILTRATION RATE 49.2 (>42); POTASSIUM SERUM 4.3 MMOL/L (3.5-5.1); TOTAL PROTEIN 6.9 G/DL (5.7-8.2)
[2023-09-13 21:01] LABS: RSV AMPLIFICATION NEGATIVE (NEGATIVE)
[2023-09-14 00:56] VITALS: TEMP 97.4
[2023-09-14] MEDS: NS 1,000 ML IV ONE (03:50)
[2023-09-14 05:00] VITALS: BP 169/73; O2SAT 99
== END 2023-09-14 05:08 | disposition home or self-care (01) ==
LOC: EDBD 19:04 → M ED 19:04
DX: T67.5XXA Heat exhaustion, unspecified, initial encounter (principal); E86.0 Dehydration; E11.9 Type 2 diabetes mellitus without complications; K21.9 Gastro-esophageal reflux disease without esophagitis; I10 Essential (primary) hypertension; E78.5 Hyperlipidemia, unspecified; F32.A Depression, unspecified; Z79.82 Long term (current) use of aspirin; Z79.02 Long term (current) use of antithrombotics/antiplatelets; Z79.811 Long term (current) use of aromatase inhibitors; Z79.4 Long term (current) use of insulin; Z79.899 Other long term (current) drug therapy

== ENCOUNTER 2023-12-17 14:18 | Emergency (ER) | payer OTHER, MEDICARE ==
[~2023-12-17] VITALS: Ht 177.8 cm; Wt 80.9 kg
[2023-12-17] MEDS: ACETAMINOPHEN 325 MG TAB PO ONE (20:02)
[2023-12-17 21:32] VITALS: BP 160/76; TEMP 97.8; O2SAT 99
== END 2023-12-17 21:51 | disposition home or self-care (01) ==
LOC: M ED 14:18
DX: S40.012A Contusion of left shoulder, initial encounter (principal); S70.02XA Contusion of left hip, initial encounter; W01.0XXA Fall on same level from slipping, tripping and stumbling without subsequent striking against object, initial encounter; I70.0 Atherosclerosis of aorta; M16.12 Unilateral primary osteoarthritis, left hip; M51.36 Other intervertebral disc degeneration, lumbar region; M50.322 Other cervical disc degeneration at C5-C6 level; M25.78 Osteophyte, vertebrae; I10 Essential (primary) hypertension; G40.909 Epilepsy, unspecified, not intractable, without status epilepticus; E11.9 Type 2 diabetes mellitus without complications; E78.5 Hyperlipidemia, unspecified; H40.9 Unspecified glaucoma; Z79.82 Long term (current) use of aspirin; Z79.02 Long term (current) use of antithrombotics/antiplatelets; Z79.811 Long term (current) use of aromatase inhibitors; Z79.4 Long term (current) use of insulin; Z79.899 Other long term (current) drug therapy; Y92.512 Supermarket, store or market as the place of occurrence of the external cause; Y93.89 Activity, other specified; Y99.9 Unspecified external cause status

== ENCOUNTER 2024-01-06 20:31 | Emergency (ER) | payer OTHER, MEDICARE ==
[~2024-01-06] VITALS: Ht 177.8 cm; Wt 77.3 kg
[2024-01-06 20:48] VITALS: TEMP 96.9
[2024-01-06 21:10] LABS: BASO % 0.2 % (0.0-1.0); EOS % 0.3 % (0.0-3.0); HEMATOCRIT 29.9 % (42.0-52.0); HEMOGLOBIN 10.7 g/dl (13.5-17.5); LYMPH # 2.1 10^3/uL (1.5-5.0); MEAN CORPUSCULAR HGB CONC 35.8 g/dl (32.0-36.5); MEAN CORPUSCULAR VOLUME 97.7 fl (80.0-96.0); MONO # 0.7 10^3/uL (0.0-0.8); MONO % 11.3 % (2.0-8.0); NEUTROPHILS # 3.2 10^3/uL (1.5-8.5); NEUTROPHILS % 52.9 % (36.0-66.0); PLATELET COUNT, AUTOMATED 284 10^3/uL (150-450); RED BLOOD COUNT 3.06 10^6/uL (4.30-6.10); WHITE BLOOD COUNT 6.1 10^3/uL (4.0-10.0)
[2024-01-06] MEDS ORDERED: HYDR12.55 PO (21:11)
[2024-01-06] MEDS ORDERED: FERR325T3 PO (21:11)
[2024-01-06 21:38] LABS: ALBUMIN 3.7 G/DL (3.2-5.2); ALKALINE PHOSPHATASE 45 U/L (46-116); ALT/SGPT 14 U/L (7.0-40); AST/SGOT 14 U/L (<34); BILIRUBIN,DIRECT < 0.1 MG/DL (<0.4); BILIRUBIN,TOTAL 0.2 MG/DL (0.3-1.2); BLOOD UREA NITROGEN 30 MG/DL (9-23); CALCIUM LEVEL 10.2 MG/DL (8.3-10.6); CARBON DIOXIDE LEVEL 27 MMOL/L (20-31); CHLORIDE LEVEL 99 MMOL/L (98-107); CREATININE FOR GFR 1.45 MG/DL (0.70-1.30); GLOMERULAR FILTRATION RATE 50.4 (>42); GLUCOSE, FASTING 152 MG/DL (74-106); POTASSIUM SERUM 4.5 MMOL/L (3.5-5.1); SODIUM LEVEL 133 MMOL/L (136-145); TOTAL PROTEIN 7.4 G/DL (5.7-8.2)
[2024-01-06] MEDS ORDERED: ISOVUE-370 76% 100ML VIAL As Ordered ONE (23:01)
[2024-01-07] MEDS: hydrALAZINE 20MG/ML 1ML VIAL IV ONE (01:45)
[2024-01-07 02:31] VITALS: BP 148/67; O2SAT 99
== END 2024-01-07 03:07 | disposition home or self-care (01) ==
LOC: M ED 20:31
DX: R06.00 Dyspnea, unspecified (principal); I10 Essential (primary) hypertension; I44.0 Atrioventricular block, first degree; K80.20 Calculus of gallbladder without cholecystitis without obstruction; J98.11 Atelectasis; J43.9 Emphysema, unspecified; I70.0 Atherosclerosis of aorta; Z79.82 Long term (current) use of aspirin; Z79.02 Long term (current) use of antithrombotics/antiplatelets; Z79.811 Long term (current) use of aromatase inhibitors; Z79.4 Long term (current) use of insulin; Z79.899 Other long term (current) drug therapy
CPT/HCPCS: 71045; 71275; 80048; 80076; 85025; 87486; 87581; 87633; 87798; 93005; 93041; 94760; 96374; 99285; J0360; Q9967

== ENCOUNTER 2024-04-09 10:45 | Emergency (ER) | payer OTHER, MEDICARE ==
[~2024-04-09] VITALS: Ht 177.8 cm; Wt 78.4 kg
[~2024-04-09 10:45] MED LIST changes: +FERR325T3 PO; +HYDR12.55 PO; +METF-1156 PO; -METF-817 PO
[2024-04-09 13:44] VITALS: BP 185/79; TEMP 96.4; O2SAT 100
== END 2024-04-09 14:38 | disposition home or self-care (01) ==
LOC: M ED 10:45
DX: M25.512 Pain in left shoulder (principal); M25.562 Pain in left knee; W19.XXXA Unspecified fall, initial encounter; E11.9 Type 2 diabetes mellitus without complications; I10 Essential (primary) hypertension; E78.5 Hyperlipidemia, unspecified; K21.9 Gastro-esophageal reflux disease without esophagitis; G40.909 Epilepsy, unspecified, not intractable, without status epilepticus; Y92.89 Other specified places as the place of occurrence of the external cause; Y93.89 Activity, other specified; Y99.9 Unspecified external cause status; Z79.82 Long term (current) use of aspirin; Z79.811 Long term (current) use of aromatase inhibitors; Z79.4 Long term (current) use of insulin; Z79.899 Other long term (current) drug therapy

== ENCOUNTER 2024-05-02 15:52 | Emergency (ER) | payer OTHER, MEDICARE ==
[~2024-05-02] VITALS: Ht 177.8 cm; Wt 83.6 kg
[2024-05-02 16:08] VITALS: TEMP 97.9
[2024-05-02 16:16] LABS: BASO % 0.3 % (0.0-1.0); EOS # 0.1 10^3/uL (0.0-0.5); EOS % 1.2 % (0.0-3.0); HEMATOCRIT 30.8 % (42.0-52.0); HEMOGLOBIN 10.6 g/dl (13.5-17.5); LYMPH # 2.8 10^3/uL (1.5-5.0); LYMPH % 42.2 % (24.0-44.0); MEAN CORPUSCULAR HEMOGLOBIN 33.2 pg (27.0-33.0); MEAN CORPUSCULAR HGB CONC 34.4 g/dl (32.0-36.5); MEAN CORPUSCULAR VOLUME 96.6 fl (80.0-96.0); MONO # 0.7 10^3/uL (0.0-0.8); MONO % 10.8 % (2.0-8.0); NEUTROPHILS % 45.2 % (36.0-66.0); PLATELET COUNT, AUTOMATED 241 10^3/uL (150-450); RED BLOOD COUNT 3.19 10^6/uL (4.30-6.10); WHITE BLOOD COUNT 6.7 10^3/uL (4.0-10.0)
[2024-05-02 16:43] LABS: CK-MB VALUE MASS 2.5 NG/ML (<3.6)
[2024-05-02 16:45] LABS: CALCIUM LEVEL 10.1 MG/DL (8.3-10.6); CREATININE FOR GFR 1.64 MG/DL (0.70-1.30); GLOMERULAR FILTRATION RATE 43.6 (>42); MB/CK RELATIVE INDEX 3.84 (< OR =4); POTASSIUM SERUM 4.9 MMOL/L (3.5-5.1)
[2024-05-02 16:48] LABS: INR 1.01; PARTIAL THROMBOPLASTIN TIME 25.4 SECONDS (24.8-34.2); PROTHROMBIN TIME 13.6 SECONDS (12.5-14.5)
[2024-05-02] MEDS ORDERED: FAMO10TA50 PO (17:13)
[2024-05-02] MEDS ORDERED: CARV6.25 PO (17:13)
[2024-05-02 17:46] LABS: CK-MB VALUE MASS 2.2 NG/ML (<3.6)
[2024-05-02 17:47] LABS: MB/CK RELATIVE INDEX 3.66 (< OR =4)
[2024-05-02 18:15] VITALS: BP 150/67; O2SAT 97
== END 2024-05-02 22:01 | disposition home or self-care (01) ==
LOC: EDBD 15:52 → M ED 15:52
DX: R07.89 Other chest pain (principal); I25.10 Atherosclerotic heart disease of native coronary artery without angina pectoris; E11.9 Type 2 diabetes mellitus without complications; I10 Essential (primary) hypertension; E78.5 Hyperlipidemia, unspecified; R56.9 Unspecified convulsions; K21.9 Gastro-esophageal reflux disease without esophagitis; F41.9 Anxiety disorder, unspecified; Z79.82 Long term (current) use of aspirin; Z79.84 Long term (current) use of oral hypoglycemic drugs; Z79.899 Other long term (current) drug therapy

== ENCOUNTER 2024-05-28 14:55 | Emergency (ER) | payer OTHER, MEDICARE ==
[~2024-05-28] VITALS: Ht 177.8 cm; Wt 73.8 kg
[~2024-05-28 14:55] MED LIST changes: +CARV6.25 PO; +FAMO10TA50 PO
[2024-05-28 15:50] LABS: BASO % 0.3 % (0.0-1.0); EOS # 0.1 10^3/uL (0.0-0.5); EOS % 0.8 % (0.0-3.0); HEMATOCRIT 28.3 % (42.0-52.0); LYMPH % 31.9 % (24.0-44.0); MEAN CORPUSCULAR HGB CONC 35.3 g/dl (32.0-36.5); MEAN CORPUSCULAR VOLUME 96.3 fl (80.0-96.0); MONO # 0.9 10^3/uL (0.0-0.8); MONO % 13.5 % (2.0-8.0); NEUTROPHILS # 3.4 10^3/uL (1.5-8.5); NEUTROPHILS % 53.2 % (36.0-66.0); PLATELET COUNT, AUTOMATED 230 10^3/uL (150-450); RED BLOOD COUNT 2.94 10^6/uL (4.30-6.10); WHITE BLOOD COUNT 6.4 10^3/uL (4.0-10.0)
[2024-05-28] MEDS: MORPHINE 2 MG/ML 1ML VIAL IV ONE (15:51)
[2024-05-28 16:13] LABS: CALCIUM LEVEL 9.3 MG/DL (8.3-10.6); CREATININE FOR GFR 1.6 MG/DL (0.70-1.30); GLOMERULAR FILTRATION RATE 44.8 (>42); POTASSIUM SERUM 4.7 MMOL/L (3.5-5.1)
[2024-05-28] MEDS ORDERED: ISOVUE-370 76% 100ML VIAL As Ordered ONE (16:33)
[2024-05-28] MEDS ORDERED: PERC5TAB12 PO (18:45)
[2024-05-28 19:00] VITALS: BP 156/72; TEMP 97.8; O2SAT 98
== END 2024-05-28 19:19 | disposition home or self-care (01) ==
LOC: M ED 14:55 → EDBD 14:55 → M ED 19:19
DX: S22.42XA Multiple fractures of ribs, left side, initial encounter for closed fracture (principal); W00.0XXA Fall on same level due to ice and snow, initial encounter; J98.11 Atelectasis; M50.322 Other cervical disc degeneration at C5-C6 level; M50.323 Other cervical disc degeneration at C6-C7 level; M47.812 Spondylosis without myelopathy or radiculopathy, cervical region; K80.20 Calculus of gallbladder without cholecystitis without obstruction; K76.0 Fatty (change of) liver, not elsewhere classified; N26.1 Atrophy of kidney (terminal); K57.30 Diverticulosis of large intestine without perforation or abscess without bleeding; K59.00 Constipation, unspecified; E11.9 Type 2 diabetes mellitus without complications; I10 Essential (primary) hypertension; K21.9 Gastro-esophageal reflux disease without esophagitis; Z79.82 Long term (current) use of aspirin; Z79.02 Long term (current) use of antithrombotics/antiplatelets; Z79.4 Long term (current) use of insulin; Z79.899 Other long term (current) drug therapy; Y92.9 Unspecified place or not applicable; Y93.89 Activity, other specified; Y99.9 Unspecified external cause status
CPT/HCPCS: 70450; 71260; 72125; 73030; 73060; 74177; 80047; 80048; 85025; 93041; 94760; 96374; 99285; Q9967

== ENCOUNTER → 2024-07-02 | Outpatient (REF) | payer MEDICARE, OTHER ==
[~2024-07-02] MED LIST changes: +PERC5TAB12 PO
[2024-07-02 10:08] LABS: HEMATOCRIT 33.8 % (42.0-52.0); HEMOGLOBIN 11.5 g/dl (13.5-17.5); MEAN CORPUSCULAR HEMOGLOBIN 32.6 pg (27.0-33.0); MEAN CORPUSCULAR VOLUME 95.8 fl (80.0-96.0); PLATELET COUNT, AUTOMATED 341 10^3/uL (150-450); RED BLOOD COUNT 3.53 10^6/uL (4.30-6.10); WHITE BLOOD COUNT 9.1 10^3/uL (4.0-10.0)
[2024-07-02 10:34] LABS: CALCIUM LEVEL 9.6 MG/DL (8.3-10.6); CHOLESTEROL RISK RATIO 3.78 (<5); CREATININE FOR GFR 1.93 MG/DL (0.70-1.30); GLOMERULAR FILTRATION RATE 35.2 (>42); HDL CHOLESTEROL 34.1 MG/DL (>40); LDL CHOLESTEROL 56.9 MG/DL (<100); NON-HDL-C 94.9 MG/DL; POTASSIUM SERUM 4.1 MMOL/L (3.5-5.1)
== END ==
LOC: SKLAB2 07:45
PROVIDERS: ATTEND Internal Medicine
DX: G40.909 Epilepsy, unspecified, not intractable, without status epilepticus (principal); E78.5 Hyperlipidemia, unspecified; E11.9 Type 2 diabetes mellitus without complications; I10 Essential (primary) hypertension

== ENCOUNTER → 2024-07-05 | Outpatient (REF) | payer SELFPAY ==
[2024-07-05 07:59] LABS: HEMATOCRIT 33.8 % (42.0-52.0); HEMOGLOBIN 11.2 g/dl (13.5-17.5); MEAN CORPUSCULAR HEMOGLOBIN 32.6 pg (27.0-33.0); MEAN CORPUSCULAR HGB CONC 33.1 g/dl (32.0-36.5); MEAN CORPUSCULAR VOLUME 98.3 fl (80.0-96.0); PLATELET COUNT, AUTOMATED 300 10^3/uL (150-450); RED BLOOD COUNT 3.44 10^6/uL (4.30-6.10); WHITE BLOOD COUNT 7.7 10^3/uL (4.0-10.0)
[2024-07-05 08:13] LABS: CALCIUM LEVEL 9.5 MG/DL (8.3-10.6); CREATININE FOR GFR 1.71 MG/DL (0.70-1.30); GLOMERULAR FILTRATION RATE 40.7 (>42); POTASSIUM SERUM 4.5 MMOL/L (3.5-5.1)
== END ==
LOC: SKLAB2 07:00
PROVIDERS: ATTEND Internal Medicine
DX: I10 Essential (primary) hypertension (principal)

== ENCOUNTER 2024-07-24 10:57 | Emergency (ER) | payer MEDICARE, OTHER ==
[2024-07-24] MEDS: OXYMETAZOLINE 0.05% NASAL SPRAY ONE (12:49)
[2024-07-24 13:08] LABS: BASO % 0.4 % (0.0-1.0); EOS # 0.1 10^3/uL (0.0-0.5); EOS % 1.1 % (0.0-3.0); HEMATOCRIT 23.9 % (42.0-52.0); HEMOGLOBIN 7.7 g/dl (13.5-17.5); LYMPH # 1.7 10^3/uL (1.5-5.0); LYMPH % 30.8 % (24.0-44.0); MEAN CORPUSCULAR HEMOGLOBIN 32.4 pg (27.0-33.0); MEAN CORPUSCULAR HGB CONC 32.2 g/dl (32.0-36.5); MEAN CORPUSCULAR VOLUME 100.4 fl (80.0-96.0); MONO # 0.6 10^3/uL (0.0-0.8); NEUTROPHILS # 3.1 10^3/uL (1.5-8.5); NEUTROPHILS % 55.8 % (36.0-66.0); PLATELET COUNT, AUTOMATED 110 10^3/uL (150-450); RED BLOOD COUNT 2.38 10^6/uL (4.30-6.10); WHITE BLOOD COUNT 5.6 10^3/uL (4.0-10.0)
[2024-07-24 14:14] LABS: HEMATOCRIT 32.8 % (42.0-52.0)
[2024-07-24 14:17] LABS: HEMOGLOBIN 10.8 g/dl (13.5-17.5)
[2024-07-24 14:18] LABS: CALCIUM LEVEL 9.2 MG/DL (8.3-10.6); CREATININE FOR GFR 1.15 MG/DL (0.70-1.30); GLOMERULAR FILTRATION RATE 65.6 (>42); POTASSIUM SERUM 4.4 MMOL/L (3.5-5.1)
[2024-07-24] MEDS: MORPHINE 2 MG/ML 1ML VIAL IV ONE (14:45)
[2024-07-24] MEDS ORDERED: AMOX875T2 PO (14:49)
[2024-07-24 15:39] VITALS: TEMP 97.9
[2024-07-24 15:49] VITALS: BP 148/73; O2SAT 97
== END 2024-07-24 15:35 | disposition home or self-care (01) ==
LOC: M ED 10:57 → EDBD 10:57 → M ED 15:35
DX: R04.0 Epistaxis (principal); K21.9 Gastro-esophageal reflux disease without esophagitis; E11.9 Type 2 diabetes mellitus without complications; I10 Essential (primary) hypertension; E78.5 Hyperlipidemia, unspecified; Z79.82 Long term (current) use of aspirin; Z79.2 Long term (current) use of antibiotics; Z79.4 Long term (current) use of insulin; Z79.899 Other long term (current) drug therapy

== ENCOUNTER 2024-07-25 20:33 | Emergency (ER) | payer OTHER, MEDICARE ==
[~2024-07-25 20:33] MED LIST changes: +AMOX875T2 PO
[2024-07-25 21:20] LABS: IONIZED CALCIUM 4.9 MG/DL (4.5-5.3)
[2024-07-25 21:41] LABS: BASO % 0.2 % (0.0-1.0); EOS % 0.1 % (0.0-3.0); HEMATOCRIT 29.7 % (42.0-52.0); HEMOGLOBIN 10.4 g/dl (13.5-17.5); LYMPH # 1.7 10^3/uL (1.5-5.0); LYMPH % 16.1 % (24.0-44.0); MEAN CORPUSCULAR HEMOGLOBIN 33.9 pg (27.0-33.0); MEAN CORPUSCULAR VOLUME 96.7 fl (80.0-96.0); MONO # 1.6 10^3/uL (0.0-0.8); MONO % 15.1 % (2.0-8.0); NEUTROPHILS # 7.3 10^3/uL (1.5-8.5); NEUTROPHILS % 68.1 % (36.0-66.0); PLATELET COUNT, AUTOMATED 189 10^3/uL (150-450); RED BLOOD COUNT 3.07 10^6/uL (4.30-6.10); WHITE BLOOD COUNT 10.8 10^3/uL (4.0-10.0)
[2024-07-25 21:58] LABS: ALBUMIN 2.9 G/DL (3.2-5.2); BILIRUBIN,DIRECT 0.1 MG/DL (<0.4); BILIRUBIN,TOTAL 0.3 MG/DL (0.3-1.2); CALCIUM LEVEL 9.9 MG/DL (8.3-10.6); CREATININE FOR GFR 1.04 MG/DL (0.70-1.30); MAGNESIUM LEVEL 1.9 MG/DL (1.8-2.4); PHOSPHORUS LEVEL 2.9 MG/DL (2.4-5.1); POTASSIUM SERUM 4.5 MMOL/L (3.5-5.1); TOTAL PROTEIN 6.8 G/DL (5.7-8.2)
[2024-07-25 23:15] VITALS: BP 147/72; TEMP 98.2; O2SAT 98
[2024-07-25] MEDS: ACETAMINOPHEN 500 MG TAB PO ONE (23:16)
== END 2024-07-25 23:32 | disposition home or self-care (01) ==
LOC: EDUNIT# 20:33 → EDBD 20:33 → M ED 20:33
DX: G40.909 Epilepsy, unspecified, not intractable, without status epilepticus (principal); E78.5 Hyperlipidemia, unspecified; E11.9 Type 2 diabetes mellitus without complications; K21.9 Gastro-esophageal reflux disease without esophagitis; I10 Essential (primary) hypertension; Z79.899 Other long term (current) drug therapy; Z79.82 Long term (current) use of aspirin; Z79.4 Long term (current) use of insulin; Z79.02 Long term (current) use of antithrombotics/antiplatelets

== ENCOUNTER 2024-08-05 21:50 | Inpatient (IN) | payer OTHER, MEDICARE ==
[~2024-08-05] VITALS: Ht 177.8 cm; Wt 69.4 kg
[2024-08-06 00:55] LABS: BASO % 0.5 % (0.0-1.0); EOS # 0.3 10^3/uL (0.0-0.5); EOS % 4.8 % (0.0-3.0); HEMATOCRIT 27.6 % (42.0-52.0); HEMOGLOBIN 9.1 g/dl (13.5-17.5); LYMPH # 1.7 10^3/uL (1.5-5.0); MONO # 0.8 10^3/uL (0.0-0.8); NEUTROPHILS # 3.1 10^3/uL (1.5-8.5); NEUTROPHILS % 52.4 % (36.0-66.0); PLATELET COUNT, AUTOMATED 206 10^3/uL (150-450); RED BLOOD COUNT 2.76 10^6/uL (4.30-6.10)
[2024-08-06 01:16] LABS: CALCIUM LEVEL 8.9 MG/DL (8.3-10.6); CREATININE FOR GFR 1.62 MG/DL (0.70-1.30); GLOMERULAR FILTRATION RATE 43.5 (>42); POTASSIUM SERUM 4.1 MMOL/L (3.5-5.1)
[2024-08-06 01:17] LABS: CK-MB VALUE MASS 2.4 NG/ML (<3.6); MB/CK RELATIVE INDEX 3.47 (< OR =4)
[2024-08-06] MEDS ORDERED: ACETAMINOPHEN 325 MG TAB PO PRN (03:55)
[2024-08-06] MEDS ORDERED: MOM 30ML SUSPENSION UDC PO PRN (03:55)
[2024-08-06] MEDS ORDERED: MAALOX 30 ML SUSP *UDC PO PRN (03:55)
[2024-08-06 07:45] LABS: HEMATOCRIT 28.4 % (42.0-52.0); HEMOGLOBIN 9.4 g/dl (13.5-17.5); MEAN CORPUSCULAR HEMOGLOBIN 33.3 pg (27.0-33.0); MEAN CORPUSCULAR HGB CONC 33.1 g/dl (32.0-36.5); MEAN CORPUSCULAR VOLUME 100.7 fl (80.0-96.0); PLATELET COUNT, AUTOMATED 207 10^3/uL (150-450); RED BLOOD COUNT 2.82 10^6/uL (4.30-6.10); WHITE BLOOD COUNT 5.7 10^3/uL (4.0-10.0)
[2024-08-06] MEDS: LR 1,000 ML IV SCH (07:45)
[2024-08-06 08:17] LABS: CALCIUM LEVEL 9.3 MG/DL (8.3-10.6); CREATININE FOR GFR 1.68 MG/DL (0.70-1.30); GLOMERULAR FILTRATION RATE 41.6 (>42); MAGNESIUM LEVEL 2.3 MG/DL (1.8-2.4); POTASSIUM SERUM 4.6 MMOL/L (3.5-5.1)
[2024-08-06 08:32] LABS: APPEARANCE, URINE HAZY (CLEAR); BACTERIA, URINE AUTO NEGATIVE (NEGATIVE); BILIRUBIN, URINE AUTO NEGATIVE (NEGATIVE); BLOOD, URINE BLOOD NEGATIVE (NEGATIVE); COLOR, URINE YELLOW (YELLOW); GLUCOSE, URINE (UA) AUTO NEGATIVE (NEGATIVE); KETONE, URINE AUTO TRACE mg/dL (NEGATIVE); LEUKOCYTE ESTERASE, URINE AUTO NEGATIVE (NEGATIVE); MUCUS, URINE SMALL (NEGATIVE); NITRITE, URINE AUTO NEGATIVE (NEGATIVE); PROTEIN, URINE AUTO 1+ mg/dL (NEGATIVE); RBC, URINE AUTO 1 /HPF (0-3); SPECIFIC GRAVITY URINE AUTO 1.023 (1.002-1.035); SQUAMOUS EPITHELIAL CELL UR AU 0 /HPF (0-6); WBC, URINE AUTO 0 /HPF (0-3)
[2024-08-06] MEDS ORDERED: ARTIDRO4 OU (09:30)
[2024-08-06] MEDS ORDERED: OMEP1CAP73 PO (09:30)
[2024-08-06] MEDS ORDERED: AMLO1TAB24 PO (09:30)
[2024-08-06] MEDS ORDERED: ASPI325T57 PO (09:30)
[2024-08-06] MEDS ORDERED: MILKSUS3 PO (09:30)
[2024-08-06] MEDS ORDERED: DIVA500T9 PO (09:30)
[2024-08-06] MEDS ORDERED: DICL20GE TOP (09:30)
[2024-08-06] MEDS ORDERED: METO25TA4 PO (09:30)
[2024-08-06] MEDS ORDERED: ACET1TAB55 PO (09:30)
[2024-08-06 09:33] LABS: INR 1.27; PARTIAL THROMBOPLASTIN TIME 26.1 SECONDS (24.8-34.2); PROTHROMBIN TIME 16.1 SECONDS (12.5-14.5)
[2024-08-06] MEDS ORDERED: HOME MED LIST COMPLETE! XX SCH (09:35)
[2024-08-06] MEDS ORDERED: PILL CUTTER 1 EACH XX ONE (10:06)
[2024-08-06] MEDS: DOCUSATE SODIUM 100MG CAPSULE PO SCH (10:08)
[2024-08-06] MEDS: lamoTRIgine 100MG TAB PO SCH (10:09)
[2024-08-06] MEDS: ATORVASTATIN 20 MG TAB PO SCH (10:09)
[2024-08-06] MEDS: DIVALPROEX 500MG *ER* TAB PO SCH ×2 (10:16→20:46)
[2024-08-06] MEDS: FERROUS SULFATE 325MG TAB PO SCH (10:44)
[2024-08-06] MEDS: ASPIRIN 325 MG TAB PO SCH (10:44)
[2024-08-06] MEDS: HEPARIN SOD 5000UNITS/ML 1ML VIAL/SYRINGE SC SCH (10:44)
[2024-08-06] MEDS: OMEPRAZOLE 20MG CAP PO SCH (10:44)
[2024-08-06] MEDS: GABAPENTIN 100 MG CAP PO SCH (10:45)
[2024-08-06] MEDS: METOPROLOL TART 25 MG TABLET PO SCH (10:45)
[2024-08-06 11:39] VITALS: BP 138/63; TEMP 97.7; O2SAT 99
[2024-08-06] MEDS: POLYVINYL ALCOHOL OPHTH SOLN 15ML (LIQUITEARS) OU SCH (13:11)
[2024-08-06 16:00] VITALS: BP 103/51; TEMP 97.3; O2SAT 97
[2024-08-06 19:19] VITALS: BP 141/84; TEMP 97.2; O2SAT 97
[2024-08-07] VITALS (7 sets, daily range): BP systolic 115–158; BP diastolic 54–74; TEMP 97.2–97.5; O2SAT 95–99
[2024-08-07 07:21] LABS: HEMATOCRIT 29.5 % (42.0-52.0); HEMOGLOBIN 9.7 g/dl (13.5-17.5); MEAN CORPUSCULAR HGB CONC 32.9 g/dl (32.0-36.5); MEAN CORPUSCULAR VOLUME 100.3 fl (80.0-96.0); PLATELET COUNT, AUTOMATED 209 10^3/uL (150-450); RED BLOOD COUNT 2.94 10^6/uL (4.30-6.10); WHITE BLOOD COUNT 6.6 10^3/uL (4.0-10.0)
[2024-08-07 07:48] LABS: CALCIUM LEVEL 9.3 MG/DL (8.3-10.6); CREATININE FOR GFR 1.43 MG/DL (0.70-1.30); GLOMERULAR FILTRATION RATE 50.5 (>42); POTASSIUM SERUM 3.9 MMOL/L (3.5-5.1)
[2024-08-07] MEDS: LR 1,000 ML IV SCH (11:55)
[2024-08-07] MEDS: MIRALAX *UNIT DOSE* 17GM PACKET PO SCH (12:48)
[2024-08-07] MEDS: amLODIPine 5 MG TAB PO SCH (12:53)
[2024-08-08 06:00] VITALS: BP 140/62; TEMP 97.3; O2SAT 97
[2024-08-08 06:22] LABS: HEMATOCRIT 27.3 % (42.0-52.0); HEMOGLOBIN 9.1 g/dl (13.5-17.5); MEAN CORPUSCULAR HEMOGLOBIN 33.1 pg (27.0-33.0); MEAN CORPUSCULAR HGB CONC 33.3 g/dl (32.0-36.5); MEAN CORPUSCULAR VOLUME 99.3 fl (80.0-96.0); PLATELET COUNT, AUTOMATED 185 10^3/uL (150-450); RED BLOOD COUNT 2.75 10^6/uL (4.30-6.10); WHITE BLOOD COUNT 5.5 10^3/uL (4.0-10.0)
[2024-08-08 06:48] LABS: CALCIUM LEVEL 9.1 MG/DL (8.3-10.6); CREATININE FOR GFR 1.34 MG/DL (0.70-1.30); GLOMERULAR FILTRATION RATE 54.6 (>42); POTASSIUM SERUM 4.2 MMOL/L (3.5-5.1)
[2024-08-08 08:00] VITALS: BP 135/61; TEMP 97.7; O2SAT 96
[2024-08-08] MEDS: LR 1,000 ML IV SCH (08:24)
[2024-08-08 09:44] VITALS: BP 135/61
== END 2024-08-08 13:40 | DRG 684 ==
LOC: M ED 21:50 → EDBD 21:50 → M ED INP 08-06 10:21 → M MS5PR 08-06 11:15
PROVIDERS: ADMIT Student in an Organized Health Care Education/Training Program; ATTEND Student in an Organized Health Care Education/Training Program
DX: N17.9 Acute kidney failure, unspecified (principal); S09.90XA Unspecified injury of head, initial encounter; R53.81 Other malaise; I10 Essential (primary) hypertension; E11.40 Type 2 diabetes mellitus with diabetic neuropathy, unspecified; E11.21 Type 2 diabetes mellitus with diabetic nephropathy; K21.9 Gastro-esophageal reflux disease without esophagitis; I25.10 Atherosclerotic heart disease of native coronary artery without angina pectoris; H40.9 Unspecified glaucoma; E78.5 Hyperlipidemia, unspecified; I35.0 Nonrheumatic aortic (valve) stenosis; Z95.1 Presence of aortocoronary bypass graft; W18.30XA Fall on same level, unspecified, initial encounter; Y92.009 Unspecified place in unspecified non-institutional (private) residence as the place of occurrence of the external cause; R56.9 Unspecified convulsions